=== PATIENT | female | born 1960 | race Caucasian/White ===

== ENCOUNTER 2018-04-03 11:57 | Inpatient (IN) | payer OTHER, MEDICAID ==
[2018-04-03 12:26] LABS: PLATELET COUNT 513 10^3/uL (150-400)
--- NOTE | 2018-04-03 13:11 | EDPHY ---
H & P Stated Complaint: Pt laying in ditch refused to get up, answered only "I don't know" Time Seen by Provider: 04/03/18 12:00 HPI/ROS: CHIEF COMPLAINT: Altered mental status Limitations: AMS, pt unable to provide any clinical history HISTORY OF PRESENT ILLNESS: 57-year-old female presents with altered mental status. She was apparently at [facility] ED this morning and was discharged to the [facility]. She left the [facility] this morning and walked to a ditch. She was found lying in the ditch, only saying "I do not know , I do not know". She is unable to provide any history initially. REVIEW OF SYSTEMS: Unable to obtain - Personal History Current Tetanus/Diphtheria Vaccine: Unsure - Medical/Surgical History Other PMH: Dementia, bipolar disorder - Social History Alcohol Use: Sober Drug Use: None - Physical Exam Exam: General Appearance: Alert, appears confused Eyes: Pupils equal and round, no conjunctival pallor or injection ENT, Mouth: Mucous membranes moist Neck: Normal inspection Respiratory: Lungs are clear to auscultation Cardiovascular: Regular rate and rhythm Gastrointestinal: Abdomen is soft and nontender Neurological: Alert, oriented to self only, motor 5/5, cranial nerves grossly intact Skin: Warm and dry Extremities: Normal inspection Psychiatric: Flat affect, no recent memory, remote memory limited; aware that she has a son who lives in [place] Constitutional: Initial Vital Signs Temperature (C) 36.5 C 04/03/18 12:00 Heart Rate 114 H 04/03/18 12:00 Respiratory Rate 18 04/03/18 12:00 Blood Pressure 126/89 H 04/03/18 12:00 O2 Sat (%) 96 04/03/18 12:00 O2 Delivery Mode Room Air Allergies/Adverse Reactions: ibuprofen Allergy (Verified 04/03/18 12:27) Home Medications: Medication Instructions Recorded Amitriptyline HCl [Amitriptyline 12.5 mg PO DAILY 04/03/18 HCl] Atorvastatin Calcium [Lipitor 10 10 mg PO DAILY 04/03/18 mg (*)] Baclofen [Baclofen 10 mg (*)] 10 mg PO BID 04/03/18 Duloxetine HCl [Duloxetine HCl] 120 mg PO DAILY 04/03/18 Pantoprazole Sodium [Protonix 40mg 40 mg PO BID 04/03/18 (*)] Sucralfate [Sucralfate] 1 gm PO ACHS 04/03/18 metFORMIN HCL [Metformin HCl] 500 mg PO BIDMEAL 04/03/18 Medical Decision Making - Diagnostics EKG Interpretation: EKG interpreted by me reveals sinus tachycardia, rate 108, Pac, no ST or T segment changes. Interpretation: Otherwise normal EKG. Imaging Results: Head CT 04/03/18 12:07 Impression: 1. No subdural hematoma, mass, or acute process. 2. Moderate atrophy. Findings discussed with emergency department physician, Virginia Wilson MD on April 03, 2018 at 12:55 p.m. Chest X-Ray 04/03/18 12:26 Impression: 1. Mild airways disease. No pneumonia or evidence of aspiration. 2. Right basilar focal opacity may represent pulmonary nodule, subacute anterior right 4th rib fracture, or infectious or inflammatory pulmonary process. Recommend follow-up chest radiograph in 4-6 weeks to ensure resolution. Findings discussed with emergency department physician, Virginia Wilson MD on April 03, 2018 at 1:08 p.m. Imaging: Discussed imaging studies w/ calliope player Radiologist ED Course/Re-evaluation: This patient presents with altered mental status. Her neurologic exam is nonfocal and the etiology of her symptoms is unclear. She has a folder of her medical records with her and she was recently seen in the [facility] emergency department and at [facility] ED. The diagnosis at [facility] ED was "person feigning illness". h/o vascular dementia, presentation could be secondary to advanced dementia. Does not appear to have an acute psych problem or acute illness. 1:00 p.m.-patient is more talkative now. She knows her name and where she is. She has a son who lives nearby. She does not recall the events of the morning, but tells me that she has not recently been ill or injured. She is only able to tell me that she does not feel well. The senior safety support manager became involved with this patient. Please see her note. Multiple attempts to reach pt's son unsuccessful. There is no evidence of an acute medical or psychiatric problem during my initial evaluation. She certainly has dementia which may be the primary reason she does not have recollection of recent events. She is certainly not able to leave the emergency department in this condition. She will need to be admitted for safe disposition. The hospitalist service was consulted for admission. Differential Diagnosis: Altered mental status including but not limited to hypoglycemia, infectious process, electrolyte abnormality, head injury, CVA, and intoxicants. - Data Points Laboratory Results: Laboratory Results 04/03/18 12:16 04/03/18 12:16 Medications Given: Baclofen (Baclofen) 5 mg PO BID [facility] Stop: 10/01/18 11:14 Last Admin: 04/04/18 12:04 Dose: 5 mg Enoxaparin Sodium (Lovenox) 40 mg SC DAILY [facility] Stop: 10/01/18 08:59 Last Admin: 04/04/18 08:45 Dose: 40 mg Insulin Human Lispro (Humalog Lispro) 0 unit SC TIDMEAL [facility] PRN Reason: Protocol Stop: 09/30/18 17:59 Last Admin: 04/04/18 18:29 Dose: Not Given Sucralfate (Carafate) 1 gm PO ACHS [facility] Stop: 10/01/18 11:29 Last Admin: 04/04/18 17:51 Dose: 1 gm Discontinued Medications Sodium Chloride (Ns) 1,000 mls @ 150 mls/hr IV CONT [facility] Stop: 04/03/18 22:54 Last Admin: 04/03/18 17:52 Dose: 1,000 mls Influenza Virus Vaccine Quadrival (Flulaval Quad [id number] (6mo+)) 0.5 ml IM .ONCE ONE Stop: 04/04/18 11:26 Last Admin: 04/04/18 12:09 Dose: 0.5 ml Departure - Departure Disposition: [facility] Inpatient Acute Clinical Impression: Failure to thrive in adult Dementia Qualifiers: Dementia type: vascular dementia Dementia behavioral disturbance: with behavioral disturbance Qualified Code(s): F01.51 - Vascular dementia with behavioral disturbance Condition: Fair
--- NOTE | 2018-04-03 14:36 | CPEKG ---
Test Reason : OPEN Blood Pressure : / mmHG Vent. Rate : 108 BPM Atrial Rate : 109 BPM P-R Int : 144 ms QRS Dur : 081 ms QT Int : 327 ms P-R-T Axes : 058 048 070 degrees QTc Int : 439 ms Sinus tachycardia Confirmed by Virginia Wilson ([id number]) on 04/03/2018 2:36:03 PM Referred By: Confirmed By:Virginia Wilson
[2018-04-03] MEDS ORDERED: IOPAMIDOL (ISOVUE 370) 100 ML BTL IV ONE (15:52)
[2018-04-03] MEDS ORDERED: ONDANSETRON 4 MG/2 ML VIAL IVP PRN (16:01)
[2018-04-03] MEDS ORDERED: ACETAMINOPHEN 325 MG TAB PO PRN (16:01)
[2018-04-03] MEDS ORDERED: ONDANSETRON DISINTEGRATING 4 MG TAB PO PRN (16:01)
[2018-04-03] MEDS ORDERED: NS 1,000 ML IV SCH (16:15)
[2018-04-03] MEDS ORDERED: D50W 25 GM/50 ML SYR IVP PRN (16:40)
--- NOTE | 2018-04-03 17:38 | ASMTLACE ---
AMINAH Acuity / Level of Answers: Yes Care: Did the patient have an inpatient admission? Comorbidities - select Answers: Dementia all that apply Opioid dependence / Chronic pain # of Emergency department Answers: 1-2 visits in the last 6 months Social determinants Answers: Homelessness (street, custodial) Mental health diagnosis (anxiety, depression, pers onality disorders, etc.) Score: 17 Date Signed: 04/03/2018 05:37 PM Electronically Signed By:Julianna Morales
--- NOTE | 2018-04-03 18:00 | HOSPPROG ---
Hospitalist Progress Note Assessment/Plan: please read CM note from ER as it contains a lot of info re: her recent story 1. she has a h/o of narcotic and benzo abuse/overuse 2. CT scan today w no PE but potential lung CA and axillary LAD c/f malignancy. no further workup ordered at this point. will likely need a guardian. one of her sons is no longer participating in her care Objective: Vital Signs Temp Pulse Resp BP Pulse Ox 37.1 C 98 14 113/75 99 04/03/18 16:18 04/03/18 16:18 04/03/18 16:18 04/03/18 16:18 04/03/18 16:18 ICD10 Worksheet Patient Problems: Problems Problem Status Onset Dementia Acute Failure to thrive in adult Acute
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
[2018-04-03] MEDS: INSULIN LISPRO 100 UNIT/ML SC SCH (19:13)
[2018-04-04 06:02] LABS: PLATELET COUNT 434 10^3/uL (150-400)
[2018-04-04] MEDS: ENOXAPARIN 40 MG/0.4 ML SYR SC SCH (08:45)
--- NOTE | 2018-04-04 09:49 | PDMN ---
Medical Necessity Medical necessity: [facility] [id number] Mental status change and [id number] Other psychiatric d/o adult IP care: 57 yo w/ altered mental status found down [place] ditch [place] [facility], pt is tachycardic HR 110s, questionable PE vs. rib fx so CT ordered - neg for PE but potential lung CA and axillary LAD c/f malignancy. Pt is gravely disabled and will likely need gaurdian. Hx bipolar, DM, reflux, generalized anxiety d/o, sleep apnea, COPD, chronic pain, Ollier's disease, vascular dementia, narcotic and benzo abuse/overuse, and hyperlipidemia.
[2018-04-04] MEDS: INSULIN LISPRO 100 UNIT/ML SC SCH ×3 (10:57→18:29)
--- NOTE | 2018-04-04 11:07 | HOSPPROG ---
Hospitalist Progress Note Assessment/Plan: # social - See CM note from Madiha for more details. Patient is AOx3 but has no recollection of recent events. Has a reported history of vascular dementia. Her son does not appear to be involved at this time. CM is working on proxy vs guardian and gathering collateral. If she tries to leave, she should be placed on a medical incapacity hold. # encephalopathy - Unsure of the acuity, she has underlying reported vascular dementia - will decrease but not stop baclofen given potential for withdrawal - working on getting collateral - CTH with atrophy # possible lung cancer with spiculated nodule and LAD - defer w/u at this time pending evaluation of the above # chronic pain - not currently on narcotics per her med rec, but reported history of narcotic use # DM2 - hold metformin for now # HLD - lipitor # htn - not on meds, BP ok # GERD - protonix # COPD - on RA, no exacerbation # h/o nephrectomy # bipolar/anxiety/depression - cymbalta, elavil are on her med list # vascular dementia Subjective: patient is AOx3, but has no recollection of recent events Objective: Vital Signs Temp Pulse Resp BP Pulse Ox 37.0 C 87 16 105/74 96 04/04/18 07:48 04/04/18 07:48 04/04/18 07:48 04/04/18 07:48 04/04/18 07:48 Laboratory Results 04/04/18 04:50 04/04/18 04:50 04/03/18 04/04/18 04/05/18 05:59 05:59 05:59 Intake Total 1904 Balance 190 chart reviewed CTH reviewed CTA reviewed - Physical Exam Constitutional: no apparent distress, other (lying in bed) Cardiovascular: regular rate and rhythym, no murmur, rub, or gallop Respiratory: no respiratory distress, no rales or rhonchi, clear to auscultation Gastrointestinal: soft, non-tender abdomen, no palpable masses, No guarding, No rebound, No distension Neurologic: other (AOx3, no memory of recent events) ICD10 Worksheet Patient Problems: Problems Problem Status Onset Dementia Acute Failure to thrive in adult Acute
[2018-04-04] MEDS: BACLOFEN 10 MG TAB PO SCH ×2 (12:04→20:20)
[2018-04-04] MEDS: SUCRALFATE 1 GM TAB PO SCH ×3 (12:05→20:20)
--- NOTE | 2018-04-04 16:10 | ASMTCMCOM ---
CM Note CM Note Notes: Spoke with patient about the need for a proxy for her. Patient gave me her son's name, Remy and the same number she gave CM, Madiha Kris. His number has been disconnected. Patient states she has a daughter, Tierra Ziegler who lives in [place]. She states her number is [phone]. CM left a message for Tierra to call us back. Returned patient's folder of information that Madiha Keithabimael used to try and put a timeline of events together. Left a message for the director social at [facility] to call us back. We are hoping to get more hx and clarity from [facility] where patient lived for a short period of time. CM will follow. Date Signed: 04/04/2018 04:09 PM Electronically Signed By:Angie Patel LCSW
[2018-04-04] MEDS: PANTOPRAZOLE SODIUM 40 MG TAB PO SCH (20:20)
[2018-04-05 05:51] LABS: PLATELET COUNT 434 10^3/uL (150-400)
[2018-04-05] MEDS: SUCRALFATE 1 GM TAB PO SCH ×4 (07:31→20:00)
[2018-04-05] MEDS: INSULIN LISPRO 100 UNIT/ML SC SCH ×2 (07:36→11:19)
[2018-04-05] MEDS: ATORVASTATIN CALCIUM 10 MG TAB PO SCH (09:39)
[2018-04-05] MEDS: AMITRIPTYLINE HCL 25 MG TAB PO SCH (09:39)
[2018-04-05] MEDS: DULoxetine 60 MG CAP PO SCH (09:39)
[2018-04-05] MEDS: BACLOFEN 10 MG TAB PO SCH ×2 (09:40→20:00)
[2018-04-05] MEDS: PANTOPRAZOLE SODIUM 40 MG TAB PO SCH ×2 (09:40→20:00)
[2018-04-05] MEDS: ENOXAPARIN 40 MG/0.4 ML SYR SC SCH (09:40)
--- NOTE | 2018-04-05 14:46 | HOSPPROG ---
Hospitalist Progress Note Assessment/Plan: 57y F with bipolar d/o brought in after being found down in a ditch. # social - See CM note from Madiha for more details. Patient is AOx3 but has no recollection of recent events. Has a reported history of vascular dementia. Her son does not appear to be involved at this time. CM is working on proxy vs guardian and gathering collateral. If she tries to leave, she should be placed on a medical incapacity hold. # Amnesia/encephalopathy: Unsure of the acuity, she has underlying reported vascular dementia - will decrease but not stop baclofen given potential for withdrawal - working on getting collateral - CTH with atrophy - consider paraneoplastic etiology with below # possible lung cancer with spiculated nodule and LAD - defer w/u at this time pending evaluation of the above # chronic pain - not currently on narcotics per her med rec, but reported history of narcotic use # DM2 - hold metformin with recent contrast # HLD - lipitor # htn - not on meds, BP ok # GERD - protonix # COPD - on RA, no exacerbation # h/o nephrectomy # bipolar/anxiety/depression - cymbalta, elavil are on her med list # vascular dementia Dispo: Remain inpatient, unsafe to discharge. Unclear anticipated date of discharge. Subjective: Reports mild diffuse pain. She is oriented but denies recollection of any recent events or really any events in her past after high school. Objective: Vital Signs Temp Pulse Resp BP Pulse Ox 36.6 C 106 H 16 127/82 H 94 04/05/18 12:00 04/05/18 12:00 04/05/18 12:00 04/05/18 12:00 04/05/18 12:00 Laboratory Results 04/05/18 04:38 04/05/18 04:38 04/04/18 04/05/18 04/06/18 05:59 05:59 05:59 Intake Total 1904 650 Balance 1904 650 - Physical Exam Constitutional: no apparent distress, appears nourished, not in pain Eyes: PERRL, anicteric sclera, EOMI Ears, Nose, Mouth, Throat: moist mucous membranes, hearing normal, ears appear normal, no oral mucosal ulcers Cardiovascular: regular rate and rhythym, no murmur, rub, or gallop Respiratory: no respiratory distress, no rales or rhonchi, clear to auscultation Gastrointestinal: normoactive bowel sounds, soft, non-tender abdomen, no palpable masses Genitourinary: no bladder fullness, no bladder tenderness, no renal bruits Skin: no rashes or abrasions, no fluctuance, no induration Musculoskeletal: full muscle strength, no muscle tenderness, normal joint ROM Neurologic: AAOx3, sensation intact bilaterally Psychiatric: interacting appropriately, other (able to spell WORLD backwards, count back by serial 7s, knows president) ICD10 Worksheet Patient Problems: Problems Problem Status Onset Dementia Acute Failure to thrive in adult Acute
--- NOTE | 2018-04-05 16:48 | ASMTCMCOM ---
CM Note CM Note Notes: Spoke with Dr. Huerta regarding patient and he agrees she goes in and out of decisionality. He is ordering a consult with Romana Tran to get more insight into the patient's mental health problems. I did not hear back from the patient's daughter today. Left another message requesting she get in contact with us. Discharge plan remains TBD at this time.The case has been forwarded to Susan Mendoza and Jessica Zuniga for their review and suggestions.CM will follow. Date Signed: 04/05/2018 04:47 PM Electronically Signed By:Angie Patel LCSW
[2018-04-06] MEDS: DULoxetine 60 MG CAP PO SCH (09:25)
[2018-04-06] MEDS: PANTOPRAZOLE SODIUM 40 MG TAB PO SCH ×2 (09:25→20:11)
[2018-04-06] MEDS: BACLOFEN 10 MG TAB PO SCH ×2 (09:25→20:11)
[2018-04-06] MEDS: AMITRIPTYLINE HCL 25 MG TAB PO SCH (09:25)
[2018-04-06] MEDS: SUCRALFATE 1 GM TAB PO SCH ×4 (09:25→20:11)
[2018-04-06] MEDS: ATORVASTATIN CALCIUM 10 MG TAB PO SCH (09:25)
[2018-04-06] MEDS: ENOXAPARIN 40 MG/0.4 ML SYR SC SCH (09:26)
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
[2018-04-06] MEDS: metFORMIN HCL 500 MG TAB PO SCH (17:48)
[2018-04-06 18:47] LABS: HIV TYPE 1 AND 2 NEGATIVE (NEGATIVE)
[2018-04-07] MEDS: metFORMIN HCL 500 MG TAB PO SCH ×2 (07:35→17:38)
[2018-04-07] MEDS: SUCRALFATE 1 GM TAB PO SCH ×4 (07:36→20:00)
[2018-04-07] MEDS: AMITRIPTYLINE HCL 25 MG TAB PO SCH (08:55)
[2018-04-07] MEDS: DULoxetine 60 MG CAP PO SCH (08:56)
[2018-04-07] MEDS: ATORVASTATIN CALCIUM 10 MG TAB PO SCH (08:56)
[2018-04-07] MEDS: PANTOPRAZOLE SODIUM 40 MG TAB PO SCH ×2 (08:57→20:00)
[2018-04-07] MEDS: BACLOFEN 10 MG TAB PO SCH ×2 (08:57→20:00)
[2018-04-07] MEDS: ENOXAPARIN 40 MG/0.4 ML SYR SC SCH (08:57)
--- NOTE | 2018-04-07 09:22 | HOSPPROG ---
Hospitalist Progress Note Assessment/Plan: DIAGNOSES: # Amnesia/encephalopathy: Unsure of the acuity but suspect this is a chronic baseline for her, she has underlying reported vascular dementia - at this point difficult to determine whether this is really a neurologic/ dementia issue or a psychiatric issue with pseudo dementia - does carry both a psychiatric diagnosis and takes medicines for presumed bipolar disease, and has reported history of dementia but we have no previous records or knowledge of what assessment or evaluations she has had -I do not think this is paraneoplastic as suggested earlier during this hospital stay as she does not have any focal neurologic changes consistent with that and in the # microcytic anemia raising concern for possible GI malignancy versus other cause of blood loss which could include other causes of bleeding or malabsorption such as celiac disease especially given her psychiatric issues # possible lung cancer with spiculated nodule and LAD - defer w/u at this time pending evaluation of the above # chronic pain - not currently on narcotics per her med rec, but reported history of narcotic abuse # DM2 - hold metformin with recent contrast; given her fasting sugars here not sure that metformin is necessary for her but we have not checked postprandial sugars # HLD - lipitor # htn - not on meds, BP ok # GERD - has been on Protonix, get but given her overall list of issues would be preferable to attempt use of H2 ivy at present # COPD - on RA, no exacerbation; continue some low-level tobacco use # h/o nephrectomy # bipolar/anxiety/depression - cymbalta, elavil are on her med list; question why she is not on a mood stabilizer PLANS: - continue lowered dose of baclofen and eventually stop that; avoid any other medicines with PIERCE AND SHAVE PRESS OPERATOR side effects - agree she is not safe to be in an unsupervised setting at this point - working on getting guardianship, collateral - in terms of any workup for malignancy, I believe that most likely 1st investigating for any GI pathology would be the best starting point, and given her age this would be very reasonable; however I am not sure that she can give true informed consent - will try and discuss with her further to see if she is able to understand the concept of such an illness and evaluation and if she is able to express consistent wishes for medical care - in terms of assessing her presenting neurologic/psychiatric issues, it would be ideal to get past history, and would be useful to consider formal neuropsychiatric testing. If her issues are primarily psychiatric, more aggressive or appropriate psychiatric care could be helpful - will not resume metformin at present, but will check some postprandial sugars to see whether this medicine is truly indicated Dispo: Remain inpatient, unsafe to discharge. Unclear anticipated date of discharge. Ongoing case management efforts SUBJECTIVE: States she feels well. No specific discomfort or other complaints Can not recall why she is here, has no questions about her condition or why she is here OBJECTIVE Vitals reviewed: Merchandise Displayer, my review: Exam: alert oriented to her name and place. States she has had no recollection about [address] [place] up in the hospital, or what she has been told about why she is here or what our concerns are for her in terms of medical diagnoses or complications. Her affect is flat and very depressed. She does not make eye contact during our conversation, does not move from her position of lying on her side. She has eaten part of her breakfast this morning including a full bottle of Ensure. skin warm dry color ok resps not labored lungs clear BSs heart regular abd soft nondistended nontender, bowel sounds present limbs warm, no edema iv site ok Laboratory data: I reviewed all of her laboratory data from this hospital admission, there are no old available data for comparison. Anemia, microcytic, is present with elevated RDW and low MCHC, normal to high red cell count, consistent with iron deficiency, though that has not been specifically tested yet. HIV negative Syphilis serology still pending Imaging: I reviewed her head CT scan which does show atrophy but nothing else acute or concerning I reviewed her chest CT scan images. She does indeed have bilateral axillary adenopathy and a very small left lower lobe peripheral lung nodule. The adenopathy could be suggestive of malignancy but the lung nodule is small enough that I doubt it would be responsible for the bilateral adenopathy in the axillae. Since it is bilateral up breast pathology but would be less likely. Her iron deficiency could potentially suggest a GI malignancy. Objective: Vital Signs Temp Pulse Resp BP Pulse Ox 36.8 C 92 14 116/72 94 04/07/18 07:19 04/07/18 07:19 04/07/18 07:19 04/07/18 07:19 04/07/18 07:19 Laboratory Results 04/05/18 04:38 04/05/18 04:38 11/07/18 11/08/18 11/09/18 06:59 06:59 06:59 Intake Total 1500 Balance 1500 - Time Spent With Patient Time Spent with Patient: greater than 35 minutes Time Spent with Patient: Greater than 35 minutes spent on this patients care, greater than 50% of time spent counseling, educating, and coordinating care regarding the above mentioned plan. ICD10 Worksheet Patient Problems: Problems Problem Status Onset Dementia Acute Failure to thrive in adult Acute
--- NOTE | 2018-04-07 11:52 | ASMTCMCOM ---
CM Note CM Note Notes: Hospitalist evaluating pt's ability to make decision that would allow for a work-up for maligniancy . He is considering formal neuropsychiatric testing. Proxy and/or guardianship is being explored by CM. CM to [facility]. D/C Plan: TBD Date Signed: 04/07/2018 11:51 AM Electronically Signed By:Parisa Lockhart
[2018-04-08] MEDS: DULoxetine 60 MG CAP PO SCH (08:16)
[2018-04-08] MEDS: ATORVASTATIN CALCIUM 10 MG TAB PO SCH (08:17)
[2018-04-08] MEDS: SUCRALFATE 1 GM TAB PO SCH ×4 (08:17→23:09)
[2018-04-08] MEDS: AMITRIPTYLINE HCL 25 MG TAB PO SCH (08:17)
[2018-04-08] MEDS: metFORMIN HCL 500 MG TAB PO SCH ×2 (08:18→17:42)
[2018-04-08] MEDS: BACLOFEN 10 MG TAB PO SCH (08:18)
[2018-04-08] MEDS: PANTOPRAZOLE SODIUM 40 MG TAB PO SCH ×2 (08:19→23:09)
[2018-04-08] MEDS: ENOXAPARIN 40 MG/0.4 ML SYR SC SCH (08:20)
[2018-04-08] MEDS ORDERED: SODIUM FERRIC GLUCONAT/SUCROSE 125 MG in NS 100 ML IV SCH (10:00)
--- NOTE | 2018-04-08 10:01 | HOSPPROG ---
Hospitalist Progress Note Assessment/Plan: DIAGNOSES: # "Amnesia/encephalopathy": * Long history of multiple psychiatric issues and also reported history of vascular dementia. At this point the patient is denying emphatically any history of any medical or psychiatric problems, any medical contact in the last 30+ years, or any use of any medications. I believe she is actually fabricating this information will fully, and feel that she is less likely to have such as severe dementia that she has no recollection of any of this. In particular, it does not seem plausible that she would be able to engage in conversations as easily as she does now, be oriented to the name of this hospital, tell me about her family members and have absolutely no recollection of all other recent or remote past events. However this turning what is true memory loss and what is fiber K did information is difficult in her case. Reviewing the social in medical issues of the past several months, she clearly is unable to manage her medical or other life affairs safely or effectively. # microcytic anemia with iron deficiency raising concern for possible GI malignancy versus other cause of blood loss which could include other causes of bleeding or malabsorption such as celiac disease especially given her psychiatric issues # possible lung cancer with spiculated nodule and LAD * defer w/u at this time pending evaluation of the above but repeat CT scan of the chest for stability in 2-3 months would be indicated at a minimum # chronic pain - not currently on narcotics per her med rec, but reported history of narcotic abuse # DM2 - * She is refusing fingerstick monitoring here * Her fasting sugars are normal off metformin, and she may not need metformin, will ask lab to do hemoglobin A1c # HLD - lipitor # htn - not on meds, BP ok # GERD - has been on Protonix, get but given her overall list of issues would be preferable to attempt use of H2 ivy at present # COPD - on RA, no exacerbation; continue some low-level tobacco use # h/o nephrectomy # bipolar/anxiety/depression - cymbalta, elavil are on her med list; question why she is not on a mood stabilizer PLANS: * continue lowered dose of baclofen and eventually stop that; avoid any other medicines with MATERIALS ANALYST side effects * agree she is not safe to be in an unsupervised setting at this point * working on getting guardianship, collateral * begin iron replacement therapy at this time, IV transition to oral * I did review her iron deficiency with her and reviewed GI workup, and she sounds willing to engage in this, however I am not certain whether she could give true informed consent or not at present * in terms of assessing her presenting neurologic/psychiatric issues, neuropsych testing may be helpful but may have been done in the past. I think at the present time it may be useful to confront her with the records that we have obtained and see if she responds differently or gives us different answers to questions about her past medical and current medical issues * Have lab test hemoglobin A1c and determine whether metformin seems necessary Dispo: Remain inpatient, unsafe to discharge. Unclear anticipated date of discharge. Ongoing case management efforts SUBJECTIVE: States she feels well At this point when I talked to her about her medications, she denies ever having had any psychiatric or medical diagnoses or be having ever been prescribed any medications When I talked to her about her iron deficiency she says she is no longer having menstrual periods which stopped many years ago. She denies did specific abdominal or GI symptoms. She seems to comprehend what I am saying about iron deficiency and endoscopic evaluation well and says she is interested in endoscopic assessment for possible causes of deficiency Per nurses the patient has been adamantly refusing any fingerstick assessments for blood sugar OBJECTIVE Vitals reviewed: Stable Technology Sales Representative, my review: Exam: alert oriented to her name and place. Relaxed lying in bed. Makes better eye contact today. No tremor. Answers questions quickly and consistently, though her answers are not necessarily the same as what she is given during other conversations during this hospital stay. skin warm dry color ok resps not labored lungs clear BSs heart regular abd soft nondistended nontender, bowel sounds present limbs warm, no edema iv site ok Laboratory data: I reviewed all of her laboratory data from this hospital admission, there are no old available data for comparison. Anemia, microcytic, is present with elevated RDW and low MCHC, normal to high red cell count, consistent with iron deficiency, though that has not been specifically tested yet. HIV negative Syphilis serology still pending Imaging: I reviewed her head CT scan which does show atrophy but nothing else acute or concerning I reviewed her chest CT scan images. She does indeed have bilateral axillary adenopathy and a very small left lower lobe peripheral lung nodule. The adenopathy could be suggestive of malignancy but the lung nodule is small enough that I doubt it would be responsible for the bilateral adenopathy in the axillae. Since it is bilateral up breast pathology but would be less likely. Her iron deficiency could potentially suggest a GI malignancy. Objective: Vital Signs Temp Pulse Resp BP Pulse Ox 36.8 C 95 16 107/72 93 04/08/18 08:00 04/08/18 08:00 04/08/18 08:00 04/08/18 08:00 04/08/18 08:00 Laboratory Results 04/05/18 04:38 04/05/18 04:38 - Time Spent With Patient Time Spent with Patient: greater than 35 minutes Time Spent with Patient: Greater than 35 minutes spent on this patients care, greater than 50% of time spent counseling, educating, and coordinating care regarding the above mentioned plan. ICD10 Worksheet Patient Problems: Problems Problem Status Onset Dementia Acute Failure to thrive in adult Acute
[2018-04-08] MEDS: FERROUS SULFATE 325 MG TAB PO SCH (10:33)
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
--- NOTE | 2018-04-09 07:28 | ASMTCMCOM ---
CM Note CM Note Notes: DIscussed this case with Director, Susan Mendoza. Patient does need a decision maker - Ethics involved and will assist us further on Wednesday with Medical Proxy. Perhaps we should also consult Psychiatry for support with medications and decisional capacity if that is still in question. We will attempt to place this patient and start seeking emergency guardianship if we feel is warranted. THis will be a complex and difficult patient as she has Medicaid and other mental health/substance abuse issues. Plan: TBD Date Signed: 04/09/2018 07:28 AM Electronically Signed By:Jessica Zuniga RN
[2018-04-09] MEDS: AMITRIPTYLINE HCL 25 MG TAB PO SCH (08:04)
[2018-04-09] MEDS: metFORMIN HCL 500 MG TAB PO SCH ×2 (08:04→17:29)
[2018-04-09] MEDS: SUCRALFATE 1 GM TAB PO SCH ×4 (08:05→21:18)
[2018-04-09] MEDS: PANTOPRAZOLE SODIUM 40 MG TAB PO SCH ×2 (08:05→21:18)
[2018-04-09] MEDS: ATORVASTATIN CALCIUM 10 MG TAB PO SCH (08:05)
[2018-04-09] MEDS: DULoxetine 60 MG CAP PO SCH (08:05)
[2018-04-09] MEDS: FERROUS SULFATE 325 MG TAB PO SCH (08:05)
[2018-04-09] MEDS: ENOXAPARIN 40 MG/0.4 ML SYR SC SCH (08:05)
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
[2018-04-10] MEDS: metFORMIN HCL 500 MG TAB PO SCH ×2 (07:49→17:00)
[2018-04-10] MEDS: SUCRALFATE 1 GM TAB PO SCH ×4 (07:49→20:32)
[2018-04-10] MEDS: DULoxetine 60 MG CAP PO SCH (07:51)
[2018-04-10] MEDS: AMITRIPTYLINE HCL 25 MG TAB PO SCH (07:52)
[2018-04-10] MEDS: ATORVASTATIN CALCIUM 10 MG TAB PO SCH (07:53)
[2018-04-10] MEDS: FERROUS SULFATE 325 MG TAB PO SCH (07:53)
[2018-04-10] MEDS: ENOXAPARIN 40 MG/0.4 ML SYR SC SCH (07:53)
[2018-04-10] MEDS: PANTOPRAZOLE SODIUM 40 MG TAB PO SCH ×2 (07:53→20:32)
--- NOTE | 2018-04-10 10:56 | HOSPPROG ---
Hospitalist Progress Note Assessment/Plan: 57 yo F admited w encephalopathy, failure of independent living "Amnesia/encephalopathy": * Long history of multiple psychiatric issues and also reported history of vascular dementia. Reviewing the social in medical issues of the past several months, she clearly is unable to manage her medical or other life affairs safely or effectively. microcytic anemia with iron deficiency raising concern for possible GI malignancy versus other cause of blood loss. defer scope until proxy decision maker can be found possible lung cancer with spiculated nodule and LAD * defer w/u at this time pending evaluation of the above but repeat CT scan of the chest for stability in 2-3 months would be indicated at a minimum chronic pain - not currently on narcotics per her med rec, but with known history of narcotic abuse\\ DM2 - * She is refusing fingerstick monitoring here * Her fasting sugars are normal off metformin, and she may not need metformin, will ask lab to do hemoglobin A1c HLD - lipitor htn - not on meds, BP ok GERD - has been on Protonix, get but given her overall list of issues would be preferable to attempt use of H2 ivy at present COPD - on RA, no exacerbation; continue some low-level tobacco use h/o nephrectomy bipolar/anxiety/depression - cymbalta, elavil are on her med list; question why she is not on a mood stabilizer proph: enox Subjective: no complaints. alert Objective: Vital Signs Temp Pulse Resp BP Pulse Ox 36.7 C 97 16 103/67 93 04/10/18 08:00 04/10/18 08:00 04/10/18 08:00 04/10/18 08:00 04/10/18 08:00 Laboratory Results 04/05/18 04:38 04/05/18 04:38 04/09/18 04/10/18 04/11/18 05:59 05:59 05:59 Intake Total 1000 Balance 1000 - Physical Exam Constitutional: no apparent distress, appears nourished Eyes: PERRL, anicteric sclera Ears, Nose, Mouth, Throat: moist mucous membranes, hearing normal Cardiovascular: regular rate and rhythym, no murmur, rub, or gallop Respiratory: no respiratory distress, clear to auscultation Gastrointestinal: normoactive bowel sounds, no palpable masses Genitourinary: no bladder fullness, No montelongo in urethra Skin: warm, normal color Musculoskeletal: full muscle strength Neurologic: sensation intact bilaterally ICD10 Worksheet Patient Problems: Problems Problem Status Onset Dementia Acute Failure to thrive in adult Acute
[2018-04-11] MEDS: POLYETHYLENE GLYCOL 3350 17 GM PKT PO SCH (07:43)
[2018-04-11] MEDS: ENOXAPARIN 40 MG/0.4 ML SYR SC SCH (07:44)
[2018-04-11] MEDS: SUCRALFATE 1 GM TAB PO SCH ×4 (07:44→20:12)
[2018-04-11] MEDS: AMITRIPTYLINE HCL 25 MG TAB PO SCH (07:44)
[2018-04-11] MEDS: FERROUS SULFATE 325 MG TAB PO SCH (07:44)
[2018-04-11] MEDS: PANTOPRAZOLE SODIUM 40 MG TAB PO SCH ×2 (07:45→20:12)
[2018-04-11] MEDS: DULoxetine 60 MG CAP PO SCH (07:45)
[2018-04-11] MEDS: metFORMIN HCL 500 MG TAB PO SCH ×2 (07:45→17:01)
[2018-04-11] MEDS: ATORVASTATIN CALCIUM 10 MG TAB PO SCH (07:45)
--- NOTE | 2018-04-11 11:52 | ASMTCMCOM ---
CM Note CM Note Notes: CM spoke to Vero w/ [facility]. Vero spoke to Dr. Bills. Dr. Bills reports that pt does not have any immediate medical interventions that require a medical proxy. Dr. Bills is recommending/requesting for a guardian. CM communicated this w/ Jessica. Jessica has touched base w/ Susan. CM to follow. Plan: TBD Date Signed: 04/11/2018 11:51 AM Electronically Signed By:SILVIO Del Real
--- NOTE | 2018-04-11 14:37 | HOSPPROG ---
Hospitalist Progress Note Assessment/Plan: 57 yo F admited w encephalopathy, failure of independent living "Amnesia/encephalopathy": * Long history of multiple psychiatric issues and also reported history of vascular dementia. Reviewing the social in medical issues of the past several months, she clearly is unable to manage her medical or other life affairs safely or effectively. microcytic anemia with iron deficiency raising concern for possible GI malignancy versus other cause of blood loss. defer scope until proxy decision maker can be found possible lung cancer with spiculated nodule and LAD * defer w/u at this time pending evaluation of the above but repeat CT scan of the chest for stability in 2-3 months would be indicated at a minimum chronic pain - not currently on narcotics per her med rec, but with known history of narcotic abuse\\ DM2 - * She is refusing fingerstick monitoring here * Her fasting sugars are normal off metformin, and she may not need metformin, will ask lab to do hemoglobin A1c HLD - lipitor htn - not on meds, BP ok GERD - has been on Protonix, get but given her overall list of issues would be preferable to attempt use of H2 ivy at present COPD - on RA, no exacerbation; continue some low-level tobacco use h/o nephrectomy dispo: she needs a court appointed guardian proph: enox Subjective: resting comfortably. no complaints, no questions Objective: Vital Signs Temp Pulse Resp BP Pulse Ox 36.8 C 89 16 110/74 92 04/11/18 07:23 04/11/18 07:23 04/11/18 07:23 04/11/18 07:23 04/11/18 07:23 Laboratory Results 04/05/18 04:38 04/05/18 04:38 04/10/18 04/11/18 04/12/18 05:59 05:59 05:59 Intake Total 1000 2000 Output Total 1500 Balance 1000 500 - Physical Exam Constitutional: no apparent distress, appears nourished Eyes: PERRL, anicteric sclera Ears, Nose, Mouth, Throat: moist mucous membranes, hearing normal Cardiovascular: regular rate and rhythym, no murmur, rub, or gallop Respiratory: no respiratory distress, no rales or rhonchi Gastrointestinal: normoactive bowel sounds, soft, non-tender abdomen Genitourinary: no bladder fullness, No montelongo in urethra Skin: warm, normal color Musculoskeletal: full muscle strength ICD10 Worksheet Patient Problems: Problems Problem Status Onset Dementia Acute Failure to thrive in adult Acute
[2018-04-12] MEDS: metFORMIN HCL 500 MG TAB PO SCH ×2 (08:32→17:31)
[2018-04-12] MEDS: SUCRALFATE 1 GM TAB PO SCH ×4 (08:32→20:30)
[2018-04-12] MEDS: AMITRIPTYLINE HCL 25 MG TAB PO SCH (08:32)
[2018-04-12] MEDS: PANTOPRAZOLE SODIUM 40 MG TAB PO SCH ×2 (08:33→20:30)
[2018-04-12] MEDS: ATORVASTATIN CALCIUM 10 MG TAB PO SCH (08:33)
[2018-04-12] MEDS: DULoxetine 60 MG CAP PO SCH (08:33)
[2018-04-12] MEDS: FERROUS SULFATE 325 MG TAB PO SCH (08:33)
[2018-04-12] MEDS: ENOXAPARIN 40 MG/0.4 ML SYR SC SCH (08:33)
--- NOTE | 2018-04-12 10:43 | ASMTCMCOM ---
CM Note CM Note Notes: CM started [facility]TC-100. CM spoke to [facility]. They would like for ethics to assist w/ getting MD proxy. CM sent out numerous SNF referrals. CM will continue to pursue guardianship. CM to follow. Plan: TBD Date Signed: 04/12/2018 10:42 AM Electronically Signed By:SILVIO Del Real
[2018-04-12] MEDS: POLYETHYLENE GLYCOL 3350 17 GM PKT PO SCH (12:12)
--- NOTE | 2018-04-12 15:00 | ASMTCMCOM ---
CM Note CM Note Notes: Isauro from [facility] and Simona from [facility] came and assessed pt. Soraida from [facility] [place] came and assessed pt. Soraida reports that pt is appropriate for their facility. Reports that they currently have 2 female beds available. Awaiting MD proxy to be appointed to sign pt into SNF. Soraida reports that [facility] would still need to work on appointing guardianship. Awaiting from [facility] to come assess pt. CM to follow. Plan: [facility] Date Signed: 04/12/2018 02:59 PM Electronically Signed By:SILVIO Del Real
--- NOTE | 2018-04-12 16:17 | HOSPPROG ---
Hospitalist Progress Note Assessment/Plan: 57 yo F admited w encephalopathy, failure of independent living Plan of care: I spent some time talking w her today about malignancy workup. she has three potential spots of malignancy (lung nodule, axillary LAD, iron deficiency). the conversation was largely circular and she contradicted herself a few times. she doesnt belive in chemotherapy and doesnt think radiation works. she wasnt really able to provide a cogent reason as to why. (i dont believe in treating pain with pain) she did say she would consider surgery, but then ultimately stated she didnt see the point of an evaluation for malignancy. She wasnt really able to grasp the idea that a surgery for widespread cancer is not curative. at this point, I cannot recommend a malignancy workup but will continue to explore. it'll be interesting if she remebers this conversation to tomorrow she states she has a son in [place] and has imagined that he is looking for her. I called the [place] police department in this regard >40' spent at [facility] "Amnesia/encephalopathy": * Long history of multiple psychiatric issues and also reported history of vascular dementia. Reviewing the social in medical issues of the past several months, she clearly is unable to manage her medical or other life affairs safely or effectively. microcytic anemia with iron deficiency raising concern for possible GI malignancy versus other cause of blood loss. defer scope until proxy decision maker can be found possible lung cancer with spiculated nodule and LAD * defer w/u at this time pending evaluation of the above but repeat CT scan of the chest for stability in 2-3 months would be indicated at a minimum chronic pain - not currently on narcotics per her med rec, but with known history of narcotic abuse\\ DM2 - * She is refusing fingerstick monitoring here * Her fasting sugars are normal off metformin, and she may not need metformin, will ask lab to do hemoglobin A1c HLD - lipitor htn - not on meds, BP ok GERD - has been on Protonix, get but given her overall list of issues would be preferable to attempt use of H2 ivy at present COPD - on RA, no exacerbation; continue some low-level tobacco use h/o nephrectomy dispo: she needs a court appointed guardian proph: enox Subjective: case d/w MD proxy. discussed cancer workup with patient. she states she has a son (hans maravilla) in [facility] Objective: Vital Signs Temp Pulse Resp BP Pulse Ox 36.8 C 91 12 87/59 L 96 04/12/18 08:00 04/12/18 08:00 04/12/18 08:00 04/12/18 08:00 04/12/18 08:00 Laboratory Results 04/05/18 04:38 04/05/18 04:38 04/11/18 04/12/18 04/13/18 05:59 05:59 05:59 Intake Total 2000 300 Output Total 1500 Balance 500 300 - Physical Exam Constitutional: no apparent distress, appears nourished Eyes: PERRL, anicteric sclera Ears, Nose, Mouth, Throat: moist mucous membranes, hearing normal Cardiovascular: regular rate and rhythym, no murmur, rub, or gallop Respiratory: no respiratory distress, clear to auscultation Gastrointestinal: normoactive bowel sounds, soft, non-tender abdomen Genitourinary: no bladder fullness, No montelongo in urethra Musculoskeletal: full muscle strength, no muscle tenderness Neurologic: AAOx3 Psychiatric: interacting appropriately Lymph, Heme, Immunologic: other (no axillary LAD) ICD10 Worksheet Patient Problems: Problems Problem Status Onset Dementia Acute Failure to thrive in adult Acute
--- NOTE | 2018-04-13 12:21 | HOSPPROG ---
Hospitalist Progress Note Assessment/Plan: 57 yo F admited w encephalopathy, failure of independent living Plan of care: I followed up with her today. she recalled our conversation from yesterday w limited details when pressed, she agreed to, but couldnt tell me, the details. she maintaind her refusal of chemotherapy or radiation citing the same reasons (they dont work ) i asked her about biopsying the axillary lymph nodes- it is conceivable that they are from breast CA nad if ER+, she could benefit from estrogen receptor modulator. she was amenable to it, but struggled to explain the risks and benfits of doing so, she acknowledged it would get an answer, might cause pain. 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 when i asked her what street [facility] was on, she confabulated saying [facility] I discussed w dr chambers whether or not this represented consent. I am uncertain. there is likelihood of benefit (ie it is breast ca and er+) is pretty low. capacity or not, it is inappropriate to give chemotherapy or radiation to a patient who refuses it. we are attempting to find son. he has relinquished involvement but hopefully he will be helpfu;. i have called [place] police, where he lives "Amnesia/encephalopathy": * Long history of multiple psychiatric issues and also reported history of vascular dementia. Reviewing the social in medical issues of the past several months, she clearly is unable to manage her medical or other life affairs safely or effectively. microcytic anemia with iron deficiency raising concern for possible GI malignancy versus other cause of blood loss. defer scope until proxy decision maker can be found possible lung cancer with spiculated nodule and LAD * defer w/u at this time pending evaluation of the above but repeat CT scan of the chest for stability in 2-3 months would be indicated at a minimum chronic pain - not currently on narcotics per her med rec, but with known history of narcotic abuse\\ DM2 - * She is refusing fingerstick monitoring here * Her fasting sugars are normal off metformin, and she may not need metformin, will ask lab to do hemoglobin A1c HLD - lipitor htn - not on meds, BP ok GERD - has been on Protonix, get but given her overall list of issues would be preferable to attempt use of H2 ivy at present COPD - on RA, no exacerbation; continue some low-level tobacco use h/o nephrectomy dispo: she needs a court appointed guardian proph: enox Subjective: case d/w dr elam, ethics consult . 90' spent on case, > 50% at bedside Objective: Vital Signs Temp Pulse Resp BP Pulse Ox 37.3 C 96 16 88/57 L 94 04/13/18 08:00 04/13/18 08:00 04/13/18 08:00 04/13/18 08:00 04/13/18 08:00 Laboratory Results 04/05/18 04:38 04/05/18 04:38 04/12/18 04/13/18 04/14/18 05:59 05:59 05:59 Intake Total 300 880 Balance 300 880 - Physical Exam Constitutional: no apparent distress, appears nourished Eyes: PERRL, anicteric sclera Ears, Nose, Mouth, Throat: moist mucous membranes, hearing normal Cardiovascular: regular rate and rhythym, no murmur, rub, or gallop Respiratory: no respiratory distress, no rales or rhonchi Gastrointestinal: normoactive bowel sounds, soft, non-tender abdomen Genitourinary: No montelongo in urethra Skin: warm, normal color Musculoskeletal: full muscle strength, no muscle tenderness Neurologic: AAOx3 Psychiatric: interacting appropriately ICD10 Worksheet Patient Problems: Problems Problem Status Onset Dementia Acute Failure to thrive in adult Acute
--- NOTE | 2018-04-13 13:19 | ASMTCMCOM ---
CM Note CM Note Notes: Dr. Robinson Fatima has been identified to serve as MD proxy. Dr. Fatima is recommending that pt goes to a locked facility. Chey from [facility] came and assessed pt. Chey will need to speak w/ Dr. Fatima. Additional SNF referrals have been sent. CM to follow. Plan: SNF Date Signed: 04/13/2018 01:18 PM Electronically Signed By:SILVIO Del Real
[2018-04-13] MEDS: ATORVASTATIN CALCIUM 10 MG TAB PO SCH (14:40)
[2018-04-13] MEDS: DULoxetine 60 MG CAP PO SCH (14:41)
[2018-04-13] MEDS: FERROUS SULFATE 325 MG TAB PO SCH (14:41)
[2018-04-13] MEDS: POLYETHYLENE GLYCOL 3350 17 GM PKT PO SCH (14:41)
[2018-04-13] MEDS: SUCRALFATE 1 GM TAB PO SCH ×3 (14:41→21:00)
[2018-04-13] MEDS: PANTOPRAZOLE SODIUM 40 MG TAB PO SCH ×2 (14:41→21:00)
[2018-04-13] MEDS: metFORMIN HCL 500 MG TAB PO SCH ×2 (14:41→17:54)
[2018-04-13] MEDS: ENOXAPARIN 40 MG/0.4 ML SYR SC SCH (14:41)
[2018-04-13] MEDS: AMITRIPTYLINE HCL 25 MG TAB PO SCH (14:42)
--- NOTE | 2018-04-14 06:37 | PDCONSULT ---
Medical Insurance Claims Processor Note: PSYCHIATRY MD CONSULTATION Consultation requested by Hospitalist Dr. Darrick Bills to assist in management /treatment of this patient with reported history of psychiatric issues and dementia. Date of service 04/13/2015 Reviewed available medical records, d/w hospitalist and healthcare risk control consultant, and interviewed patient until she terminated interview CC: When asked about her understanding why mental health consult requested: "I don't know...They thought I was sick and brought me here...(who?) the ambulance. " BRIEF HISTORY: 57yo CF admitted after being found in a ditch in [place]. She has a reported history of dementia, bipolar, hyperlipidemia, possible narcotic abuse, and chronic pain. She has been determined not to have decisional capacity at this time, and has an appointed MDPOA. Additional history indicates patient spent one night at [facility] prior to admission or in recent past. Patient reports "I'm not feeling well", feels "weak" and with aches/pains "everywhere". States pain medications help, but reports she has not been on any pain medications "since before I had a stroke and lost my memory". States she lived with her son but has not seen him since July, "I had a stroke and lost my memory, he doesn't know where I am. Feels "by now he probably filed a missing persons report and is trying to find me", and her plan is for him to pick her up from the hospital if he can be reached. Son is "Jake Dsouza", lives in [place]. Of note, child welfare caseworker indicates [facility] has made contact with son who reportedly does not want to have contact with his mother. Patient reports she is on no medications, and needs no medications, and that no medications will be helpful for her anyway, but was unable to engage in any further reasoning regarding even taking iron for anemia. "It's iron SULFATE, and that is NOT real iron." Attempted to explain that iron cannot be administered as just iron, and explained how very low her iron level was, but patient dismissed any attempt at explanation. Seems she has occasionally taken prescribed medications while in hospital, although typically refusing. Unable to engage patient in full psychiatric review of systems due to early termination of interview after patient became agitated. PAST PSYCHIATRIC HISTORY: per EMR: generalized anxiety disorder, bipolar, depression Patient denied any history of mental health diagnoses, psychiatric medications or other psychiatric treatment. Adamantly denies that she is taking any medications for mental health issues, although has been restarted on her reported prior medications of Duloxetine 120mg daily and Elavil 12.5mg daily during this admission. OF NOTE: these medications could also conceivably have been prescribed for pain conditions such as chronic pain, neuropathic pain, fibromyalgia etc. SUBSTANCE USE HISTORY: Per EMR: smokes cigarettes, denied EtOH or illicit drug use. Patient states she "never drank". Reports started smoking cigarettes "8 months ago, as many as possible", states they help with her memory. Patient did admit to history of Pain medication use, "only prescribed", and was involved with a pin clinic in [place], [place], did have a pain contract, and reports she was never kicked out of a pain clinic. Reports no recollection which pharmacy she would fill medications. PAST MEDICAL HISTORY: per EMR: Hyperlipidemia, GERD, COPD, sleep apnea, Ollier' s disease, chronic pain, vascular dementia, NIDDM SOCIAL HISTORY: Reports she grew up in [place], moved to [place] at age 28. Worked for [employer] in [employer]. 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 Lived most recently in [place] with her son. Has 2 kids- one son in [place], one in [place] with her ex who is also in [place]. States she is middle of 6 siblings, and only has 2 remaining siblings: Adrian Crooks in [place], [place], and Nayana Crooks in [place], [place]. States her parents , father of esophageal/stomach CA at age 50, and mother had multiple strokes and at age 79. name is Lianna, and she returned using maiden name Daksha after moved back to [facility] from [place] in 1987 or 1988. Was only about 7 years. MSE: lying in hospital bed completely flat on her back. did not want to sit up or elevate head of bed for interview. "I'm fine". disheveled, thin CF, unkempt, in hospital gown, missing one front upper tooth appears broken off, fair eye contact, normal rate/vol speech, articulate, mood "fine", affect restricted, disengaged, and seemed somewhat annoyed with questions but did engage with brief , generally goal-directed responses, vague with details, some questionable confabulation. Did not clinically appear in any physical distress or in pain. But did remain lying flat throughout interview. Slightly agitated when talking about iron, and her refusal of medications because feeling she needs no medications. 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 Did not appear responding to internal stimuli, and denied experiencing any AH/VH. Denied any SI. At one point patient stated, "no medications will help my illness", and then when asked to what illness she was referring, she abruptly became angry with hostile and raised tone of voice, "I don't want to talk about it, get the F*$# out of my room!" She was not redirectable to allow further interview after this outburst, so interview was terminated. Judgment seems poor, insight impaired/poor. Does seem to at least recognize she has memory problems. Also tone of voice was more quiet and flat when mentioning parents having of cancer and stroke. IMPRESSION: 57yo CF with history of vascular dementia, chronic pain, possible underlying psychiatric disorder and possible history of narcotic use disorder admitted with with encephalopathy and failure to thrive. Has been guarded with providing history versus unable to remember due to dementia/hx of CVA. She seems she may have some level of understanding that she has a serious illness (concern for malignancy) as evidenced by her reaction when asked about her illness. It may be that during this hospitalization it was the first time she was told of possible malignancy. She also expresses insight into having memory problems and prior stroke(s?). She has apparently been unable to care for herself in the community, and presently would not be considered safe to discharge without additional community support/supervision pending further assessment and diagnostic clarification. Delusional statements, as well as her flattened affect /reported apathy, given current available information and abbreviated interview , not clearly related to a primary psychiatric diagnosis, but patient does have a known dementia diagnosis. DIAGNOSIS: NEUROCOGNITIVE DISORDER, unspecified (hx of vascular dementia, possible malignancy, unknown hx of head trauma) RECOMMENDATIONS: -DISCONTINUE ELAVIL 12.5MG QD. Was being given in AM which could increase sedation, also given it's anticholinergic effects, would not be indicated with her history of dementia. Can contribute to AMS/confusion, especially if any taking extra such medication in the community. -CONTINUE DULOXETINE 120mg daily for now. This was reportedly her prior home dose. Although this is a high dose, no clear indication to change this at this time. Would question whether she had been med compliant prior to admission. Consistently denied any prior psychiatric history or medications. Not clear where her hx of BMD comes from in EMR, and current meds would not be indicated if Dx was BMD. As noted above, her Duloxetine and Elavil could have been prescribed for pain in attempt to avoid narcotics, or to address both pain and underlying depression/anxiety. Would need more collateral information to clarify history. Also, patient may have had a negative prior experience with psychiatry and thus is very guarded and reluctant to engage with mental health support, but this is speculative. -Consider check CPDMP. Has reported history of narcotic use. Also Pharmacist could check history of prior filled medications and dates and locations, could also track down a previous prescriber this way which could help with obtaining more collateral. -Would ask SPEECH THERAPY for cognitive evaluation to assess current baseline. -Consider NEUROLOGY CONSULT for additional diagnosis clarification regarding her dementia. CT with moderate atrophy, and has history in EMR of vascular dementia, but seems with greater frontal and temporal atrophy? Perhaps a Brain MRI could be helpful, also if any mets with her possible malignancy. -Consider sending PARANEOPLASTIC PANEL as well. -Would try to contact siblings whom she identified above for more information. Would also try and find out more history from son (past psych hx, substance use hx, behavioral issues, functional decline, etc) if he is willing to discuss, even though he does not want to be involved in her care. -Collateral from [facility] would be helpful, and from any other prior hospitalizations including [facility]. -B12, TSH wnl. RPR, HIV neg. -Appreciate consult. Behavioral Health will continue to follow. Will also alert Romana Tran, Behavioral Health RN, to this patient. -consider INTEGRATIVE MEDICINE consult for alternative therapies and nonpharmacological management of her reported chronic pain and any anxiety. Patient did state she reported a preference for "herbal tea" to any medication.
[2018-04-14 07:05] VITALS: BP 89/56
[2018-04-14] MEDS: ATORVASTATIN CALCIUM 10 MG TAB PO SCH (08:33)
[2018-04-14] MEDS: ENOXAPARIN 40 MG/0.4 ML SYR SC SCH (08:34)
[2018-04-14] MEDS: metFORMIN HCL 500 MG TAB PO SCH ×2 (08:34→17:59)
[2018-04-14] MEDS: DULoxetine 60 MG CAP PO SCH (08:34)
[2018-04-14] MEDS: FERROUS SULFATE 325 MG TAB PO SCH (08:34)
[2018-04-14] MEDS: SUCRALFATE 1 GM TAB PO SCH ×4 (08:34→20:51)
[2018-04-14] MEDS: POLYETHYLENE GLYCOL 3350 17 GM PKT PO SCH (08:35)
[2018-04-14] MEDS: PANTOPRAZOLE SODIUM 40 MG TAB PO SCH ×2 (08:35→20:51)
--- NOTE | 2018-04-14 13:26 | HOSPPROG ---
Hospitalist Progress Note Assessment/Plan: 57 yo F admitted w encephalopathy, failure of independent living Plan of care: I discussed with patient this morning about possible cancer diagnosis and need for further w/u, she maintained her refusal of evaluation and treatment I discussed w medical proxy, Dr. Fatima this morning who agrees that the likelihood of benefit (ie it is breast ca and er+) is pretty low. capacity or not, it is inappropriate to give chemotherapy or radiation to a patient who refuses it. He was also able to reach patient's son, who does not want to be contacted by patient and does not want to be her medical decision maker. "Amnesia/encephalopathy": * Long history of multiple psychiatric issues and also reported history of vascular dementia. Reviewing the social in medical issues of the past several months, she clearly is unable to manage her medical or other life affairs safely or effectively. microcytic anemia with iron deficiency raising concern for possible GI malignancy versus other cause of blood loss. defer scope until proxy decision maker can be found possible lung cancer with spiculated nodule and LAD * defer w/u at this time given patient's lack of capacity, repeat CT scan of the chest for stability in 2-3 months would be indicated at a minimum chronic pain - not currently on narcotics per her med rec, but with known history of narcotic abuse DM2 - * She is refusing fingerstick monitoring here * Her fasting sugars are normal off metformin, and she may not need metformin,, refusing labs, plan prior to obtain A1c HLD - lipitor htn - not on meds, BP ok GERD - has been on Protonix COPD - on RA, no exacerbation; continue some low-level tobacco use h/o nephrectomy dispo: Pending placement in coordination with , Ethics proph: enox Subjective: Patient has no complaints this morning Objective: Vital Signs Temp Pulse Resp BP Pulse Ox 36.7 C 90 16 89/56 L 93 04/14/18 07:04 04/14/18 07:04 04/14/18 07:04 04/14/18 07:04 04/14/18 07:04 Laboratory Results 04/05/18 04:38 04/05/18 04:38 04/13/18 04/14/18 04/15/18 05:59 05:59 05:59 Intake Total 2079 Balance 2079 - Physical Exam Constitutional: no apparent distress Eyes: PERRL Ears, Nose, Mouth, Throat: moist mucous membranes Cardiovascular: regular rate and rhythym Respiratory: no respiratory distress Gastrointestinal: soft, non-tender abdomen Genitourinary: No montelongo in urethra Skin: normal color Neurologic: No AAOx3 Psychiatric: poor insight, poor judgement, poor memory, No interacting appropriately ICD10 Worksheet Patient Problems: Problems Problem Status Onset Dementia Acute Failure to thrive in adult Acute
--- NOTE | 2018-04-14 15:38 | ASMTCMCOM ---
CM Note CM Note Notes: Dr. Robinson Fatima was able to speak w/ the pts son. Son does not want to be involved. Son does not think that pt needs to be in a locked facility. Alicami from [facility] still in the process of completing her assessment. Dr. Bustos consulted on pt. CM to follow. Plan: [facility] Date Signed: 04/14/2018 03:38 PM Electronically Signed By:SILVIO Del Real
[2018-04-15] MEDS: ENOXAPARIN 40 MG/0.4 ML SYR SC SCH (08:29)
[2018-04-15] MEDS: FERROUS SULFATE 325 MG TAB PO SCH (08:29)
[2018-04-15] MEDS: PANTOPRAZOLE SODIUM 40 MG TAB PO SCH ×2 (08:29→19:47)
[2018-04-15] MEDS: DULoxetine 60 MG CAP PO SCH (08:29)
[2018-04-15] MEDS: ATORVASTATIN CALCIUM 10 MG TAB PO SCH (08:29)
[2018-04-15] MEDS: POLYETHYLENE GLYCOL 3350 17 GM PKT PO SCH (08:29)
[2018-04-15] MEDS: SUCRALFATE 1 GM TAB PO SCH ×4 (08:29→19:47)
[2018-04-15] MEDS: metFORMIN HCL 500 MG TAB PO SCH ×2 (08:29→17:16)
--- NOTE | 2018-04-15 12:28 | HOSPPROG ---
Hospitalist Progress Note Assessment/Plan: 57 yo F admitted w encephalopathy, failure of independent living Plan of care: I discussed with patient about possible cancer diagnosis and need for further w/ u, she maintained her refusal of evaluation and treatment I discussed w medical proxy, Dr. Fatima who agrees that the likelihood of benefit (ie it is breast ca and er+) is pretty low. capacity or not, it is inappropriate to give chemotherapy or radiation to a patient who refuses it. He was also able to reach patient's son, who does not want to be contacted by patient and does not want to be her medical decision maker. "Amnesia/encephalopathy": * Long history of multiple psychiatric issues and also reported history of vascular dementia. Reviewing the social in medical issues of the past several months, she clearly is unable to manage her medical or other life affairs safely or effectively. Seen by psychiatry on 04/14 who recommends continuing current medication regimen microcytic anemia with iron deficiency raising concern for possible GI malignancy versus other cause of blood loss. defer scope until proxy decision maker can be found possible lung cancer with spiculated nodule and LAD * defer w/u at this time given patient's lack of capacity, repeat CT scan of the chest for stability in 2-3 months would be indicated at a minimum chronic pain - not currently on narcotics per her med rec, but with known history of narcotic abuse DM2 - * She is refusing fingerstick monitoring here * Her fasting sugars are normal off metformin, and she may not need metformin,, refusing labs, plan prior to obtain A1c HLD - lipitor htn - not on meds, BP ok GERD - has been on Protonix COPD - on RA, no exacerbation; continue some low-level tobacco use h/o nephrectomy dispo: Pending placement in coordination with CM, Ethics proph: enox Subjective: Patient reports some generalized pain this AM Objective: Vital Signs Temp Pulse Resp BP Pulse Ox 36.7 C 90 16 89/56 L 93 04/14/18 07:04 04/14/18 07:04 04/14/18 07:04 04/14/18 07:04 04/14/18 07:04 Laboratory Results 04/05/18 04:38 04/05/18 04:38 04/14/18 04/15/18 04/16/18 05:59 05:59 05:59 Intake Total 2079 Balance 2079 - Physical Exam Constitutional: no apparent distress Eyes: PERRL Ears, Nose, Mouth, Throat: moist mucous membranes Cardiovascular: No edema Respiratory: no respiratory distress Gastrointestinal: No distension Skin: normal color Psychiatric: poor insight, poor judgement ICD10 Worksheet Patient Problems: Problems Problem Status Onset Dementia Acute Failure to thrive in adult Acute
--- NOTE | 2018-04-15 14:57 | ASMTCMCOM ---
CM Note CM Note Notes: ava Avendaño coordinator came and did an assessment on pt. CM provided Jarocho all the documents she needed as supportive evidence for her write up. Pt will d/c to [facility] once level 2 michelle assessment has been completed. CM to follow. Plan: [facility] Date Signed: 04/15/2018 02:56 PM Electronically Signed By:SILVIO Del Real
[2018-04-16] MEDS: SUCRALFATE 1 GM TAB PO SCH ×4 (07:16→19:27)
[2018-04-16] MEDS: ATORVASTATIN CALCIUM 10 MG TAB PO SCH (07:16)
[2018-04-16] MEDS: metFORMIN HCL 500 MG TAB PO SCH ×2 (07:16→15:02)
[2018-04-16] MEDS: FERROUS SULFATE 325 MG TAB PO SCH (07:17)
[2018-04-16] MEDS: ENOXAPARIN 40 MG/0.4 ML SYR SC SCH (07:17)
[2018-04-16] MEDS: PANTOPRAZOLE SODIUM 40 MG TAB PO SCH ×2 (07:17→19:27)
[2018-04-16] MEDS: DULoxetine 60 MG CAP PO SCH (07:17)
[2018-04-16] MEDS: POLYETHYLENE GLYCOL 3350 17 GM PKT PO SCH (07:17)
--- NOTE | 2018-04-16 10:57 | HOSPPROG ---
Hospitalist Progress Note Assessment/Plan: 57 yo F admitted w encephalopathy, failure of independent living Plan of care: I discussed with patient about possible cancer diagnosis and need for further w/ u, she maintained her refusal of evaluation and treatment I discussed w medical proxy, Dr. Fatima who agrees that the likelihood of benefit (ie it is breast ca and er+) is pretty low. capacity or not, it is inappropriate to give chemotherapy or radiation to a patient who refuses it. He was also able to reach patient's son, who does not want to be contacted by patient and does not want to be her medical decision maker. "Amnesia/encephalopathy": * Long history of multiple psychiatric issues and also reported history of vascular dementia. Reviewing the social in medical issues of the past several months, she clearly is unable to manage her medical or other life affairs safely or effectively. Seen by psychiatry on 04/14 who recommends continuing current medication regimen microcytic anemia with iron deficiency raising concern for possible GI malignancy versus other cause of blood loss. defer scope until proxy decision maker can be found possible lung cancer with spiculated nodule and LAD * defer w/u at this time given patient's lack of capacity, repeat CT scan of the chest for stability in 2-3 months would be indicated at a minimum chronic pain - not currently on narcotics per her med rec, but with known history of narcotic abuse DM2 - * She is refusing fingerstick monitoring here * Her fasting sugars are normal off metformin, and she may not need metformin,, refusing labs, plan prior to obtain A1c HLD - lipitor htn - not on meds, BP ok GERD - has been on Protonix COPD - on RA, no exacerbation; continue some low-level tobacco use h/o nephrectomy dispo: Pending placement in coordination with CM, Ethics proph: enox Subjective: Patient reports no complaints this morning Objective: Vital Signs Temp Pulse Resp BP Pulse Ox 36.7 C 90 16 89/56 L 93 04/14/18 07:04 04/14/18 07:04 04/14/18 07:04 04/14/18 07:04 04/14/18 07:04 Laboratory Results 04/05/18 04:38 04/05/18 04:38 - Physical Exam Constitutional: no apparent distress Eyes: PERRL Ears, Nose, Mouth, Throat: moist mucous membranes Cardiovascular: No edema Respiratory: no respiratory distress Gastrointestinal: No distension Genitourinary: No montelongo in urethra Skin: normal color Neurologic: AAOx3 Psychiatric: poor insight, poor judgement ICD10 Worksheet Patient Problems: Problems Problem Status Onset Dementia Acute Failure to thrive in adult Acute
[2018-04-17] MEDS: ENOXAPARIN 40 MG/0.4 ML SYR SC SCH (09:45)
[2018-04-17] MEDS: DULoxetine 60 MG CAP PO SCH (09:45)
[2018-04-17] MEDS: ATORVASTATIN CALCIUM 10 MG TAB PO SCH (09:45)
[2018-04-17] MEDS: POLYETHYLENE GLYCOL 3350 17 GM PKT PO SCH (09:46)
[2018-04-17] MEDS: PANTOPRAZOLE SODIUM 40 MG TAB PO SCH ×2 (09:46→21:09)
[2018-04-17] MEDS: FERROUS SULFATE 325 MG TAB PO SCH (09:46)
[2018-04-17] MEDS: SUCRALFATE 1 GM TAB PO SCH ×4 (09:46→21:09)
[2018-04-17] MEDS: metFORMIN HCL 500 MG TAB PO SCH ×2 (09:46→18:06)
--- NOTE | 2018-04-17 10:51 | HOSPPROG ---
Hospitalist Progress Note Assessment/Plan: 57 yo F admitted w encephalopathy, failure of independent living Plan of care: I discussed with patient about possible cancer diagnosis and need for further w/ u, she maintained her refusal of evaluation and treatment I discussed w medical proxy, Dr. Fatima who agrees that the likelihood of benefit (ie it is breast ca and er+) is pretty low. capacity or not, it is inappropriate to give chemotherapy or radiation to a patient who refuses it. He was also able to reach patient's son, who does not want to be contacted by patient and does not want to be her medical decision maker. "Amnesia/encephalopathy": * Long history of multiple psychiatric issues and also reported history of vascular dementia. Reviewing the social in medical issues of the past several months, she clearly is unable to manage her medical or other life affairs safely or effectively. Seen by psychiatry on 04/14 who recommends continuing current medication regimen microcytic anemia with iron deficiency raising concern for possible GI malignancy versus other cause of blood loss. defer scope until proxy decision maker can be found possible lung cancer with spiculated nodule and LAD * defer w/u at this time given patient's lack of capacity, repeat CT scan of the chest for stability in 2-3 months would be indicated at a minimum chronic pain - not currently on narcotics per her med rec, but with known history of narcotic abuse DM2 - * She is refusing fingerstick monitoring here * Her fasting sugars are normal off metformin, and she may not need metformin,, refusing labs, plan prior to obtain A1c HLD - lipitor htn - not on meds, BP ok GERD - has been on Protonix COPD - on RA, no exacerbation; continue some low-level tobacco use h/o nephrectomy dispo: Pending placement in coordination with CM, Ethics proph: enox Subjective: Patient reports no complaints this morning Objective: Vital Signs Temp Pulse Resp BP Pulse Ox 36.7 C 90 16 89/56 L 93 04/14/18 07:04 04/14/18 07:04 04/14/18 07:04 04/14/18 07:04 04/14/18 07:04 Laboratory Results 04/05/18 04:38 04/05/18 04:38 04/16/18 04/17/18 04/18/18 05:59 05:59 05:59 Intake Total 500 Balance 500 - Physical Exam Constitutional: no apparent distress Eyes: EOMI Cardiovascular: No edema Respiratory: no respiratory distress Gastrointestinal: No distension Genitourinary: No montelongo in urethra Skin: normal color Neurologic: AAOx3 Psychiatric: flat affect ICD10 Worksheet Patient Problems: Problems Problem Status Onset Dementia Acute Failure to thrive in adult Acute
[2018-04-18] MEDS: ENOXAPARIN 40 MG/0.4 ML SYR SC SCH (08:36)
[2018-04-18] MEDS: ATORVASTATIN CALCIUM 10 MG TAB PO SCH (08:36)
[2018-04-18] MEDS: metFORMIN HCL 500 MG TAB PO SCH ×2 (08:36→17:43)
[2018-04-18] MEDS: DULoxetine 60 MG CAP PO SCH (08:36)
[2018-04-18] MEDS: SUCRALFATE 1 GM TAB PO SCH ×4 (08:36→20:25)
[2018-04-18] MEDS: POLYETHYLENE GLYCOL 3350 17 GM PKT PO SCH (08:37)
[2018-04-18] MEDS: PANTOPRAZOLE SODIUM 40 MG TAB PO SCH ×2 (08:37→20:25)
[2018-04-18] MEDS: FERROUS SULFATE 325 MG TAB PO SCH (08:37)
--- NOTE | 2018-04-18 11:51 | HOSPPROG ---
Hospitalist Progress Note Assessment/Plan: 57 yo F admitted w encephalopathy, failure of independent living Plan of care: I discussed with patient about possible cancer diagnosis and need for further w/ u, she maintained her refusal of evaluation and treatment I discussed w medical proxy, Dr. Fatima who agrees that the likelihood of benefit (ie it is breast ca and er+) is pretty low. capacity or not, it is inappropriate to give chemotherapy or radiation to a patient who refuses it. He was also able to reach patient's son, who does not want to be contacted by patient and does not want to be her medical decision maker. "Amnesia/encephalopathy": * Long history of multiple psychiatric issues and also reported history of vascular dementia. Reviewing the social in medical issues of the past several months, she clearly is unable to manage her medical or other life affairs safely or effectively. Seen by psychiatry on 04/14 who recommends continuing current medication regimen microcytic anemia with iron deficiency raising concern for possible GI malignancy versus other cause of blood loss. defer scope until proxy decision maker can be found possible lung cancer with spiculated nodule and LAD * defer w/u at this time given patient's lack of capacity, repeat CT scan of the chest for stability in 2-3 months would be indicated at a minimum chronic pain - not currently on narcotics per her med rec, but with known history of narcotic abuse DM2 - * She is refusing fingerstick monitoring here * Her fasting sugars are normal off metformin, and she may not need metformin,, refusing labs, plan prior to obtain A1c HLD - lipitor htn - not on meds, BP ok GERD - has been on Protonix COPD - on RA, no exacerbation; continue some low-level tobacco use h/o nephrectomy dispo: Pending placement in coordination with CM, Ethics proph: enox Subjective: Patient attempted to leave unit today, was escorted back to room by police Objective: Vital Signs Temp Pulse Resp BP Pulse Ox 36.7 C 90 16 89/56 L 93 04/14/18 07:04 04/14/18 07:04 04/14/18 07:04 04/14/18 07:04 04/14/18 07:04 Laboratory Results 04/05/18 04:38 04/05/18 04:38 04/17/18 04/18/18 04/19/18 05:59 05:59 05:59 Intake Total 500 Balance 500 - Physical Exam Constitutional: no apparent distress, chronically ill appearing, unkempt Eyes: PERRL Ears, Nose, Mouth, Throat: moist mucous membranes Cardiovascular: No edema Respiratory: no respiratory distress Gastrointestinal: No distension Genitourinary: No montelongo in urethra Skin: normal color Neurologic: No AAOx3 Psychiatric: poor insight, No interacting appropriately ICD10 Worksheet Patient Problems: Problems Problem Status Onset Dementia Acute Failure to thrive in adult Acute
--- NOTE | 2018-04-18 16:23 | ASMTCMCOM ---
CM Note CM Note Notes: NATALIA spoke to JAMEL Avendaño coordinator. She is not recommending SNF. She is recommending [facility]. Jarocho is also recommending guardianship. NATALIA spoke to Jessica about this case. NATALIA updated Vero with ethics. Vero will update Robinson Fatima (proxy). Referrals sent out to numerous [facility] facilities. CM to follow. Plan: TBD Date Signed: 04/18/2018 04:23 PM Electronically Signed By:SILVIO Del Real
[2018-04-19] MEDS: SUCRALFATE 1 GM TAB PO SCH ×4 (07:54→21:12)
[2018-04-19] MEDS: metFORMIN HCL 500 MG TAB PO SCH ×2 (07:54→17:33)
[2018-04-19] MEDS: ATORVASTATIN CALCIUM 10 MG TAB PO SCH (08:50)
[2018-04-19] MEDS: ENOXAPARIN 40 MG/0.4 ML SYR SC SCH (08:50)
[2018-04-19] MEDS: FERROUS SULFATE 325 MG TAB PO SCH (08:50)
[2018-04-19] MEDS: PANTOPRAZOLE SODIUM 40 MG TAB PO SCH ×2 (08:51→21:12)
[2018-04-19] MEDS: POLYETHYLENE GLYCOL 3350 17 GM PKT PO SCH (08:51)
--- NOTE | 2018-04-19 13:19 | ASMTCMCOM ---
CM Note CM Note Notes: Updates sent to [facility] per their request. Romana Tran stopped by to see pt. Jossy with [facility] will stop by tomorrow AM to meet w/ pt. They have a locked SNF facility. CM to follow. Plan: TBD Date Signed: 04/19/2018 01:18 PM Electronically Signed By:SILVIO Del Real
--- NOTE | 2018-04-19 16:00 | HOSPPROG ---
Hospitalist Progress Note Assessment/Plan: The patient is a 57-year-old female with PMH multiple psychiatric issues, vascular dementia who was admitted for encephalopathy and failure of independent living. ASSESSMENT/PLAN: Encephalopathy, chronic progressive History of vascular dementia Psychiatric disorders Iron deficiency anemia Suspected lung cancer Chronic pain Diabetes mellitus type 2- controlled w/ diet Hyperlipidemia Hypertension, controlled w/ diet GERD COPD History of nephrectomy -MD Proxy has been involved w/ the case- recommends [facility] placement. -Pursuing legal guardian. -Pt's NOK refuses to be involved w/ the case. -Further workup/Tx for cancer not recommended because of progressive dementia. Pt is hospice appropriate. -Palliative consult - for worsening dementia, chronic pain, suspected cancer. VTE prophylaxis: Lovenox Code Status: Full code Status: Inpatient for greater than 2 midnight stay. Disposition: [facility] with discharge to [facility] when pt obtains placement. ____ SUBJECTIVE: Today patient says she feels fine. No complaints. OBJECTIVE: Physical Exam: General: The patient is a thin female who is alert and in no acute distress. HEENT: normocephalic, extraocular movements intact, conjunctivae clear. Mucous membranes moist Neck: trachea midline, no visible masses. Resp: unlabored. Abd: soft and nondistended. Musculoskeletal: Normal muscle tone/bulk. Neuro: cranial nerves II XII grossly intact. Intact gross motor and sensory function. Psych: Appropriate mood and flat affect. Skin: + pallor. No petechiae. Heme/lymph: No peripheral edema at bilateral lower extremities. Labs/Imaging/Other Tests: Personally reviewed/interpreted. Objective: Vital Signs Temp Pulse Resp BP Pulse Ox 36.7 C 90 16 89/56 L 93 04/14/18 07:04 04/14/18 07:04 04/14/18 07:04 04/14/18 07:04 04/14/18 07:04 Laboratory Results 04/05/18 04:38 04/05/18 04:38 - Time Spent With Patient Time Spent with Patient: greater than 35 minutes Time Spent with Patient: Greater than 35 minutes spent on this patients care, greater than 50% of time spent counseling, educating, and coordinating care regarding the above mentioned plan. ICD10 Worksheet Patient Problems: Problems Problem Status Onset Dementia Acute Failure to thrive in adult Acute
[2018-04-20] MEDS: PANTOPRAZOLE SODIUM 40 MG TAB PO SCH ×2 (08:06→20:24)
[2018-04-20] MEDS: ATORVASTATIN CALCIUM 10 MG TAB PO SCH (08:06)
[2018-04-20] MEDS: SUCRALFATE 1 GM TAB PO SCH ×4 (08:06→20:24)
[2018-04-20] MEDS: FERROUS SULFATE 325 MG TAB PO SCH (08:06)
[2018-04-20] MEDS: ENOXAPARIN 40 MG/0.4 ML SYR SC SCH (08:06)
[2018-04-20] MEDS: metFORMIN HCL 500 MG TAB PO SCH ×2 (08:06→20:24)
[2018-04-20] MEDS: POLYETHYLENE GLYCOL 3350 17 GM PKT PO SCH (08:06)
--- NOTE | 2018-04-20 17:14 | ASMTCMCOM ---
CM Note CM Note Notes: Reps from [facility] in [place] here to evaluate pt, NATALIA gave notes from Romana Duke and name for MD proxy. They will follow up with NATALIA on Wednesday. DC Plan: TBD Date Signed: 04/20/2018 05:13 PM Electronically Signed By:Romana Osborn RN
--- NOTE | 2018-04-20 18:55 | HOSPPROG ---
Hospitalist Progress Note Assessment/Plan: The patient is a 57-year-old female with PMH multiple psychiatric issues, vascular dementia who was admitted for encephalopathy and failure of independent living. ASSESSMENT/PLAN: Encephalopathy, chronic progressive History of vascular dementia Psychiatric disorders Iron deficiency anemia Suspected lung cancer Chronic pain Diabetes mellitus type 2- controlled w/ diet Hyperlipidemia Hypertension, controlled w/ diet GERD COPD History of nephrectomy -MD Proxy has been involved w/ the case- recommends [facility] placement. -Pursuing legal guardian. -Pt's NOK refuses to be involved w/ the case. -Further workup/Tx for cancer not recommended because of progressive dementia. Pt is hospice appropriate. -Palliative consult - for worsening dementia, chronic pain, suspected cancer. VTE prophylaxis: Lovenox Code Status: Full code Status: Inpatient for greater than 2 midnight stay. Disposition: [facility] with discharge to [facility] when pt obtains placement. ____ SUBJECTIVE: Today patient says she feels fine. No complaints. OBJECTIVE: Physical Exam: General: The patient is a thin female who is alert and in no acute distress. HEENT: normocephalic, extraocular movements intact, conjunctivae clear. Mucous membranes moist Neck: trachea midline, no visible masses. Resp: unlabored. Abd: soft and nondistended. Musculoskeletal: Normal muscle tone/bulk. Neuro: cranial nerves II XII grossly intact. Intact gross motor and sensory function. Psych: Appropriate mood and flat affect. Skin: + pallor. No petechiae. Heme/lymph: No peripheral edema at bilateral lower extremities. Labs/Imaging/Other Tests: Personally reviewed/interpreted. Objective: Vital Signs Temp Pulse Resp BP Pulse Ox 36.7 C 90 16 89/56 L 93 04/14/18 07:04 04/14/18 07:04 04/14/18 07:04 04/14/18 07:04 04/14/18 07:04 Laboratory Results 04/05/18 04:38 04/05/18 04:38 04/19/18 04/20/18 04/21/18 05:59 05:59 05:59 Intake Total 800 Balance 800 ICD10 Worksheet Patient Problems: Problems Problem Status Onset Dementia Acute Failure to thrive in adult Acute
[2018-04-21] MEDS: ENOXAPARIN 40 MG/0.4 ML SYR SC SCH (08:35)
[2018-04-21] MEDS: ATORVASTATIN CALCIUM 10 MG TAB PO SCH (08:35)
[2018-04-21] MEDS: PANTOPRAZOLE SODIUM 40 MG TAB PO SCH ×2 (08:35→19:53)
[2018-04-21] MEDS: metFORMIN HCL 500 MG TAB PO SCH ×2 (08:35→17:55)
[2018-04-21] MEDS: FERROUS SULFATE 325 MG TAB PO SCH (08:35)
[2018-04-21] MEDS: SUCRALFATE 1 GM TAB PO SCH ×4 (08:35→19:53)
[2018-04-21] MEDS: POLYETHYLENE GLYCOL 3350 17 GM PKT PO SCH (08:36)
--- NOTE | 2018-04-21 17:32 | HOSPPROG ---
Hospitalist Progress Note Assessment/Plan: The patient is a 57-year-old female with PMH multiple psychiatric issues, vascular dementia who was admitted for encephalopathy and failure of independent living. ASSESSMENT/PLAN: Encephalopathy, chronic progressive History of vascular dementia Psychiatric disorders Iron deficiency anemia Suspected lung cancer Chronic pain Diabetes mellitus type 2- controlled w/ diet Hyperlipidemia Hypertension, controlled w/ diet GERD COPD History of nephrectomy -MD Proxy has been involved w/ the case- recommends [facility] placement. -Pursuing legal guardian. -Pt's NOK refuses to be involved w/ the case. -Further workup/Tx for cancer not recommended because of progressive dementia. Pt is hospice appropriate. -Palliative consult - for worsening dementia, chronic pain, suspected cancer. -Renew order for [facility]. VTE prophylaxis: Lovenox Code Status: Full code Status: Inpatient for greater than 2 midnight stay. Disposition: [facility] with discharge to [facility] when pt obtains placement. ____ SUBJECTIVE: Today patient says she feels fine. No complaints. OBJECTIVE: Physical Exam: General: The patient is a thin female who is alert and in no acute distress. HEENT: normocephalic, extraocular movements intact, conjunctivae clear. Mucous membranes moist Neck: trachea midline, no visible masses. Resp: unlabored. Abd: soft and nondistended. Musculoskeletal: Normal muscle tone/bulk. Neuro: cranial nerves II XII grossly intact. Intact gross motor and sensory function. Psych: Appropriate mood and flat affect. Skin: + pallor. No petechiae. Heme/lymph: No peripheral edema at bilateral lower extremities. Labs/Imaging/Other Tests: Personally reviewed/interpreted. Objective: Vital Signs Temp Pulse Resp BP Pulse Ox 36.7 C 90 16 89/56 L 93 04/14/18 07:04 04/14/18 07:04 04/14/18 07:04 04/14/18 07:04 04/14/18 07:04 Laboratory Results 04/05/18 04:38 04/05/18 04:38 04/20/18 04/21/18 04/22/18 05:59 05:59 05:59 Intake Total 800 Balance 800 ICD10 Worksheet Patient Problems: Problems Problem Status Onset Dementia Acute Failure to thrive in adult Acute
[2018-04-22] MEDS: ENOXAPARIN 40 MG/0.4 ML SYR SC SCH (09:36)
[2018-04-22] MEDS: metFORMIN HCL 500 MG TAB PO SCH ×2 (09:36→17:48)
[2018-04-22] MEDS: SUCRALFATE 1 GM TAB PO SCH ×4 (09:36→21:03)
[2018-04-22] MEDS: FERROUS SULFATE 325 MG TAB PO SCH (09:36)
[2018-04-22] MEDS: ATORVASTATIN CALCIUM 10 MG TAB PO SCH (09:36)
[2018-04-22] MEDS: POLYETHYLENE GLYCOL 3350 17 GM PKT PO SCH (09:37)
[2018-04-22] MEDS: PANTOPRAZOLE SODIUM 40 MG TAB PO SCH ×2 (09:37→21:03)
--- NOTE | 2018-04-22 13:43 | HOSPPROG ---
Hospitalist Progress Note Assessment/Plan: The patient is a 57-year-old female with PMH multiple psychiatric issues, vascular dementia who was admitted for encephalopathy and failure of independent living. ASSESSMENT/PLAN: Encephalopathy, chronic progressive History of vascular dementia Psychiatric disorders Iron deficiency anemia Suspected lung cancer Chronic pain Diabetes mellitus type 2- controlled w/ diet Hyperlipidemia Hypertension, controlled w/ diet GERD COPD History of nephrectomy -MD Proxy has been involved w/ the case- recommends [facility] placement. -Pursuing legal guardian. -Pt's NOK refuses to be involved w/ the case. -Further workup/Tx for cancer not recommended because of progressive dementia. Pt is hospice appropriate. -Palliative consulted - for worsening dementia, chronic pain, suspected cancer. -Renew order for MIH - pt does not have capacity to make own medical decisions and is a danger to self. VTE prophylaxis: Lovenox Code Status: Full code Status: Inpatient for greater than 2 midnight stay. Disposition: [facility] with discharge to [facility] when pt obtains placement. ____ SUBJECTIVE: Today patient says she feels fine. No complaints. OBJECTIVE: Physical Exam: General: The patient is a thin female who is alert and in no acute distress. HEENT: normocephalic, extraocular movements intact, conjunctivae clear. Mucous membranes moist Neck: trachea midline, no visible masses. Resp: unlabored. Abd: soft and nondistended. Musculoskeletal: Normal muscle tone/bulk. Neuro: cranial nerves II XII grossly intact. Intact gross motor and sensory function. Psych: Appropriate mood and flat affect. Skin: + pallor. No petechiae. Heme/lymph: No peripheral edema at bilateral lower extremities. Labs/Imaging/Other Tests: Personally reviewed/interpreted. Objective: Vital Signs Temp Pulse Resp BP Pulse Ox 36.7 C 90 16 89/56 L 93 04/14/18 07:04 04/14/18 07:04 04/14/18 07:04 04/14/18 07:04 04/14/18 07:04 Laboratory Results 04/05/18 04:38 04/05/18 04:38 04/21/18 04/22/18 04/23/18 05:59 05:59 05:59 Intake Total 800 Balance 800 ICD10 Worksheet Patient Problems: Problems Problem Status Onset Dementia Acute Failure to thrive in adult Acute
[2018-04-23] MEDS: SUCRALFATE 1 GM TAB PO SCH ×4 (08:33→20:27)
[2018-04-23] MEDS: ENOXAPARIN 40 MG/0.4 ML SYR SC SCH (08:33)
[2018-04-23] MEDS: metFORMIN HCL 500 MG TAB PO SCH ×2 (08:33→17:36)
[2018-04-23] MEDS: ATORVASTATIN CALCIUM 10 MG TAB PO SCH (08:33)
[2018-04-23] MEDS: FERROUS SULFATE 325 MG TAB PO SCH (08:34)
[2018-04-23] MEDS: POLYETHYLENE GLYCOL 3350 17 GM PKT PO SCH (08:34)
[2018-04-23] MEDS: PANTOPRAZOLE SODIUM 40 MG TAB PO SCH ×2 (08:34→20:27)
--- NOTE | 2018-04-23 13:43 | ASMTCMCOM ---
CM Note CM Note Notes: CM left a msg for [facility] in [place] (P#: [phone]) and requested a call back. CM to follow up on placement on Wednesday. CM to follow. Plan: TBD Date Signed: 04/23/2018 01:42 PM Electronically Signed By:SILVIO Del Real
--- NOTE | 2018-04-23 16:06 | HOSPPROG ---
Hospitalist Progress Note Assessment/Plan: The patient is a 57-year-old female with PMH multiple psychiatric issues, vascular dementia who was admitted for encephalopathy and failure of independent living. ASSESSMENT/PLAN: Encephalopathy, chronic progressive History of vascular dementia Psychiatric disorders Iron deficiency anemia Suspected lung cancer Chronic pain Diabetes mellitus type 2- controlled w/ diet Hyperlipidemia Hypertension, controlled w/ diet GERD COPD History of nephrectomy -MD Proxy has been involved w/ the case- recommends [facility] placement. -Pursuing legal guardian. -Pt's NOK refuses to be involved w/ the case. -Further workup/Tx for cancer not recommended because of progressive dementia. Pt is hospice appropriate. -Palliative consulted - for worsening dementia, chronic pain, suspected cancer. -Renew order for MIH - pt does not have capacity to make own medical decisions and is a danger to self. VTE prophylaxis: Lovenox Code Status: Full code Status: Inpatient for greater than 2 midnight stay. Disposition: [facility] with discharge to [facility] when pt obtains placement. ____ SUBJECTIVE: Today patient says she feels fine. No complaints. OBJECTIVE: Physical Exam: General: The patient is a thin female who is alert and in no acute distress. HEENT: normocephalic, extraocular movements intact, conjunctivae clear. Mucous membranes moist Neck: trachea midline, no visible masses. Resp: unlabored. Abd: soft and nondistended. Musculoskeletal: Normal muscle tone/bulk. Neuro: cranial nerves II XII grossly intact. Intact gross motor and sensory function. Psych: Appropriate mood and flat affect. Skin: + pallor. No petechiae. Heme/lymph: No peripheral edema at bilateral lower extremities. Labs/Imaging/Other Tests: Personally reviewed/interpreted. Objective: Vital Signs Temp Pulse Resp BP Pulse Ox 36.7 C 90 16 89/56 L 93 04/14/18 07:04 04/14/18 07:04 04/14/18 07:04 04/14/18 07:04 04/14/18 07:04 Laboratory Results 04/05/18 04:38 04/05/18 04:38 04/22/18 04/23/18 04/24/18 05:59 05:59 05:59 Intake Total 960 Balance 960 ICD10 Worksheet Patient Problems: Problems Problem Status Onset Dementia Acute Failure to thrive in adult Acute
[2018-04-24] MEDS: SUCRALFATE 1 GM TAB PO SCH ×4 (07:42→20:45)
[2018-04-24] MEDS: metFORMIN HCL 500 MG TAB PO SCH ×2 (07:42→17:31)
[2018-04-24] MEDS: POLYETHYLENE GLYCOL 3350 17 GM PKT PO SCH (08:22)
[2018-04-24] MEDS: PANTOPRAZOLE SODIUM 40 MG TAB PO SCH ×2 (08:22→20:45)
[2018-04-24] MEDS: ATORVASTATIN CALCIUM 10 MG TAB PO SCH (08:22)
[2018-04-24] MEDS: ENOXAPARIN 40 MG/0.4 ML SYR SC SCH (08:22)
[2018-04-24] MEDS: FERROUS SULFATE 325 MG TAB PO SCH (08:22)
--- NOTE | 2018-04-24 13:22 | HOSPPROG ---
Hospitalist Progress Note Assessment/Plan: The patient is a 57-year-old female with PMH multiple psychiatric issues, vascular dementia who was admitted for encephalopathy and failure of independent living. ASSESSMENT/PLAN: Encephalopathy, chronic progressive History of vascular dementia Psychiatric disorders Iron deficiency anemia Suspected lung cancer Chronic pain Diabetes mellitus type 2- controlled w/ diet Hyperlipidemia Hypertension, controlled w/ diet GERD COPD History of nephrectomy -MD Proxy has been involved w/ the case- recommends [facility] placement. -Pursuing legal guardian. -Pt's NOK refuses to be involved w/ the case. -Further workup/Tx for cancer not recommended because of progressive dementia. Pt is hospice appropriate. -Palliative consulted - for worsening dementia, chronic pain, suspected cancer. -Renew order for MIH - pt does not have capacity to make own medical decisions and is a danger to self. VTE prophylaxis: Lovenox Code Status: Full code Status: Inpatient for greater than 2 midnight stay. Disposition: [facility] with [facility] to [facility] when pt obtains placement. ____ SUBJECTIVE: Today patient says she feels fine. No complaints. OBJECTIVE: Physical Exam: General: The patient is a thin female who is alert and in no acute distress. HEENT: normocephalic, extraocular movements intact, conjunctivae clear. Mucous membranes moist Neck: trachea midline, no visible masses. Resp: unlabored. Abd: soft and nondistended. Musculoskeletal: Normal muscle tone/bulk. Neuro: cranial nerves II XII grossly intact. Intact gross motor and sensory function. Psych: Appropriate mood and flat affect. Skin: + pallor. No petechiae. Heme/lymph: No peripheral edema at bilateral lower extremities. Objective: Vital Signs Temp Pulse Resp BP Pulse Ox 36.7 C 90 16 89/56 L 93 04/14/18 07:04 04/14/18 07:04 04/14/18 07:04 04/14/18 07:04 04/14/18 07:04 Laboratory Results 04/05/18 04:38 04/05/18 04:38 04/23/18 04/24/18 04/25/18 05:59 05:59 05:59 Intake Total 960 Balance 960 ICD10 Worksheet Patient Problems: Problems Problem Status Onset Dementia Acute Failure to thrive in adult Acute
[2018-04-25] MEDS: ENOXAPARIN 40 MG/0.4 ML SYR SC SCH (10:26)
[2018-04-25] MEDS: FERROUS SULFATE 325 MG TAB PO SCH (10:26)
[2018-04-25] MEDS: ATORVASTATIN CALCIUM 10 MG TAB PO SCH (10:26)
[2018-04-25] MEDS: SUCRALFATE 1 GM TAB PO SCH ×4 (10:27→20:32)
[2018-04-25] MEDS: POLYETHYLENE GLYCOL 3350 17 GM PKT PO SCH (10:27)
[2018-04-25] MEDS: PANTOPRAZOLE SODIUM 40 MG TAB PO SCH ×2 (10:27→20:31)
[2018-04-25] MEDS: metFORMIN HCL 500 MG TAB PO SCH ×2 (10:27→17:29)
--- NOTE | 2018-04-25 16:45 | HOSPPROG ---
Hospitalist Progress Note Assessment/Plan: 57-year-old female with PMH multiple psychiatric issues, vascular dementia who was admitted for encephalopathy and failure of independent living. #Chronic progressive encephalopathy: - Unclear etiology. She does have some vascular dementia - She is unable to live independently - I do not think that she has capacity to make decisions - MD proxy has been involved - CM working on [facility] placement and pursuing legal guardian - Patient's NOK refuses to be involved - Renewed order for medical incapacity hold #Possible lung cancer - Deferring further work up/evaluation in setting of above - Would likely be hospice appropriate # chronic pain - not currently on narcotics per her med rec, but reported history of narcotic use # DM2 - hold metformin with recent contrast # HLD - lipitor # htn - not on meds, BP ok # GERD - protonix # COPD - on RA, no exacerbation # h/o nephrectomy # bipolar/anxiety/depression - cymbalta, elavil are on her med list # vascular dementia VTE prophylaxis: Lovenox Code Status: Full code Dispo: Remain inpatient, unsafe to discharge. Unclear anticipated date of discharge. Subjective: Resting in bed, denies complaints. Objective: Vital Signs Temp Pulse Resp BP Pulse Ox 36.7 C 90 16 89/56 L 93 04/14/18 07:04 04/14/18 07:04 04/14/18 07:04 04/14/18 07:04 04/14/18 07:04 Laboratory Results 04/05/18 04:38 04/05/18 04:38 - Physical Exam Constitutional: no apparent distress, appears nourished, not in pain Eyes: PERRL, anicteric sclera, EOMI Ears, Nose, Mouth, Throat: moist mucous membranes, hearing normal, ears appear normal, no oral mucosal ulcers Cardiovascular: regular rate and rhythym, no murmur, rub, or gallop Respiratory: no respiratory distress, no rales or rhonchi, clear to auscultation Gastrointestinal: normoactive bowel sounds, soft, non-tender abdomen, no palpable masses Genitourinary: no bladder fullness, no bladder tenderness, no renal bruits Skin: no rashes or abrasions, no fluctuance, no induration Musculoskeletal: full muscle strength, no muscle tenderness, normal joint ROM Neurologic: AAOx3, sensation intact bilaterally Psychiatric: not anxious, encephalopathic ICD10 Worksheet Patient Problems: Problems Problem Status Onset Dementia Acute Failure to thrive in adult Acute
[2018-04-26] MEDS: SUCRALFATE 1 GM TAB PO SCH ×4 (07:30→19:24)
[2018-04-26] MEDS: metFORMIN HCL 500 MG TAB PO SCH ×2 (07:31→17:42)
[2018-04-26] MEDS: FERROUS SULFATE 325 MG TAB PO SCH (08:08)
[2018-04-26] MEDS: ATORVASTATIN CALCIUM 10 MG TAB PO SCH (08:08)
[2018-04-26] MEDS: ENOXAPARIN 40 MG/0.4 ML SYR SC SCH (08:08)
[2018-04-26] MEDS: PANTOPRAZOLE SODIUM 40 MG TAB PO SCH ×2 (08:09→19:24)
[2018-04-26] MEDS: POLYETHYLENE GLYCOL 3350 17 GM PKT PO SCH (08:09)
--- NOTE | 2018-04-26 14:27 | HOSPPROG ---
Hospitalist Progress Note Assessment/Plan: 57-year-old female with PMH multiple psychiatric issues, vascular dementia who was admitted for encephalopathy and failure of independent living. #Chronic progressive encephalopathy: - Unclear etiology. She does have some vascular dementia - She is unable to live independently - I do not think that she has capacity to make decisions - MD proxy has been involved - CM working on [facility] placement and pursuing legal guardian - Patient's NOK refuses to be involved - Renewed order for medical incapacity hold #Possible lung cancer - Deferring further work up/evaluation in setting of above - Would likely be hospice appropriate, will eval once placement set up # chronic pain - not currently on narcotics per her med rec, but reported history of narcotic use # DM2 - holding metformin # HLD - lipitor # htn - not on meds, BP ok # GERD - protonix # COPD - on RA, no exacerbation # h/o nephrectomy # bipolar/anxiety/depression - cymbalta, elavil are on her med list # vascular dementia VTE prophylaxis: Lovenox Code Status: Full code Dispo: Remain inpatient, unsafe to discharge. Unclear anticipated date of discharge. Subjective: No changes. Feeling well without complaints. Knows she may have lung cancer, steadfast that she doesn't want this evaluated or treated. She is still unable to tell me why she is here, how she got here, or future plans. Objective: Vital Signs Temp Pulse Resp BP Pulse Ox 36.7 C 90 16 89/56 L 93 04/14/18 07:04 04/14/18 07:04 04/14/18 07:04 04/14/18 07:04 04/14/18 07:04 Laboratory Results 04/05/18 04:38 04/05/18 04:38 04/25/18 04/26/18 04/27/18 05:59 05:59 05:59 Intake Total 500 Balance 500 - Physical Exam Constitutional: no apparent distress, cachectic Eyes: PERRL, anicteric sclera, EOMI Ears, Nose, Mouth, Throat: moist mucous membranes, hearing normal, ears appear normal, no oral mucosal ulcers Cardiovascular: regular rate and rhythym, no murmur, rub, or gallop Respiratory: no respiratory distress, no rales or rhonchi, clear to auscultation Gastrointestinal: normoactive bowel sounds, soft, non-tender abdomen, no palpable masses Genitourinary: no bladder fullness, no bladder tenderness, no renal bruits Skin: no rashes or abrasions, no fluctuance, no induration Musculoskeletal: full muscle strength, no muscle tenderness, normal joint ROM Neurologic: AAOx3, sensation intact bilaterally Psychiatric: interacting appropriately, not anxious, not encephalopathic, thought process linear ICD10 Worksheet Patient Problems: Problems Problem Status Onset Dementia Acute Failure to thrive in adult Acute
[2018-04-27] MEDS: SUCRALFATE 1 GM TAB PO SCH ×4 (07:26→19:13)
[2018-04-27] MEDS: metFORMIN HCL 500 MG TAB PO SCH ×2 (08:09→17:43)
[2018-04-27] MEDS: ATORVASTATIN CALCIUM 10 MG TAB PO SCH (08:45)
[2018-04-27] MEDS: POLYETHYLENE GLYCOL 3350 17 GM PKT PO SCH (08:46)
[2018-04-27] MEDS: PANTOPRAZOLE SODIUM 40 MG TAB PO SCH ×2 (08:46→19:13)
[2018-04-27] MEDS: ENOXAPARIN 40 MG/0.4 ML SYR SC SCH (08:46)
[2018-04-27] MEDS: FERROUS SULFATE 325 MG TAB PO SCH (08:46)
--- NOTE | 2018-04-27 09:32 | ASMTCMCOM ---
CM Note CM Note Notes: Dr. Fatima as patient's MDPOA signed a release for CM to send for patient's records from [place]. Patient was recently hospitalized there and if we can get a clear mental health diagnosis as well as recommendations for medications, it will help to determine if patient needs to go to [facility] initially. Jarocho who completed PASRR level 2 review states patient needs a [facility] psych placement first unless we can gather enough mental health information to show she is getting the proper treatment for her mental health issues. Jarocho feels if patient has proper mental health treatment she will be more successful in a memory care unit. Consulted with Romana Tran who also agrees more clarity is needed with the mental health picture. Release and request for records was faxed to [place]. The release is in the front of patient's medical record. CM will follow. Date Signed: 04/27/2018 09:31 AM Electronically Signed By:Angie Patel LCSW
--- NOTE | 2018-04-27 12:31 | HOSPPROG ---
Hospitalist Progress Note Assessment/Plan: 57-year-old female with PMH of reported multiple psychiatric issues, vascular dementia who was admitted for encephalopathy and failure of independent living. #Chronic progressive encephalopathy: - Unclear etiology. She does have some vascular dementia - She is unable to live independently or care for personal/medical needs - I do not think that she has capacity to make decisions at this time - MD proxy (Dr Robinson Fatima) has been appointed - CM working on clarifying psychiatric diagnoses, obtaining records from [place] - working on [facility] placement vs memory care unit and pursuing legal guardian - Patient's NOK (son Remy David) refuses to be involved - Renewed order for medical incapacity hold today #Possible lung cancer - Deferring further work up/evaluation in setting of above - Would likely be hospice appropriate, will eval once placement set up # chronic pain - not currently on narcotics per her med rec, but reported history of narcotic use # DM2 - holding metformin # HLD - lipitor # htn - not on meds, BP ok # GERD - protonix # COPD - on RA, no exacerbation # h/o nephrectomy # bipolar/anxiety/depression - cymbalta, elavil are on her med list # vascular dementia VTE prophylaxis: Lovenox Code Status: Full code Dispo: Remain inpatient, unsafe to discharge. Unclear anticipated date of discharge. Subjective: No new events or symptoms. Patient occasionally up in [place] getting water. I again informed patient that CM is working on finding her a safe place to go after this hospital stay. She seemed taken aback by this and is confused as to why her son, Remy, won't take her. I informed that we had discussed with him and this was not an option. She thinks that this is a lie. She refused to allow me to examine her. Objective: Vital Signs Temp Pulse Resp BP Pulse Ox 36.7 C 90 16 89/56 L 93 04/14/18 07:04 04/14/18 07:04 04/14/18 07:04 04/14/18 07:04 04/14/18 07:04 Laboratory Results 04/05/18 04:38 04/05/18 04:38 04/26/18 04/27/18 04/28/18 05:59 05:59 05:59 Intake Total 500 Balance 500 - Physical Exam Constitutional: no apparent distress, other (thin, frail appearing) ICD10 Worksheet Patient Problems: Problems Problem Status Onset Dementia Acute Failure to thrive in adult Acute
--- NOTE | 2018-04-27 15:33 | ASMTCMCOM ---
CM Note CM Note Notes: Contacted [place] regarding medical records we requested. Spoke with Dionna who states she will fax the records to us today. CM will follow. Date Signed: 04/27/2018 03:32 PM Electronically Signed By:Angie Patel LCSW
[2018-04-28] MEDS: metFORMIN HCL 500 MG TAB PO SCH ×2 (09:10→17:32)
[2018-04-28] MEDS: SUCRALFATE 1 GM TAB PO SCH ×4 (09:10→20:08)
[2018-04-28] MEDS: ATORVASTATIN CALCIUM 10 MG TAB PO SCH (09:11)
[2018-04-28] MEDS: PANTOPRAZOLE SODIUM 40 MG TAB PO SCH ×2 (09:11→20:08)
[2018-04-28] MEDS: FERROUS SULFATE 325 MG TAB PO SCH (09:11)
[2018-04-28] MEDS: ENOXAPARIN 40 MG/0.4 ML SYR SC SCH (09:11)
[2018-04-28] MEDS: POLYETHYLENE GLYCOL 3350 17 GM PKT PO SCH (09:11)
--- NOTE | 2018-04-28 12:59 | ASMTCMCOM ---
CM Note CM Note Notes: CM sent resent referrals to [facility] and [facility], included Level II pasrr. Referral also sent to [facility], pt has been there in the past. Pt has an MD proxy. DC Plan: SNF vs Ger[facility] Date Signed: 04/28/2018 12:58 PM Electronically Signed By:Romana Osborn RN
[2018-04-29] MEDS: SUCRALFATE 1 GM TAB PO SCH ×4 (07:36→19:52)
[2018-04-29] MEDS: ATORVASTATIN CALCIUM 10 MG TAB PO SCH (07:37)
[2018-04-29] MEDS: FERROUS SULFATE 325 MG TAB PO SCH (07:37)
[2018-04-29] MEDS: ENOXAPARIN 40 MG/0.4 ML SYR SC SCH (07:37)
[2018-04-29] MEDS: metFORMIN HCL 500 MG TAB PO SCH ×2 (07:37→19:01)
[2018-04-29] MEDS: PANTOPRAZOLE SODIUM 40 MG TAB PO SCH ×2 (07:37→19:52)
[2018-04-29] MEDS: POLYETHYLENE GLYCOL 3350 17 GM PKT PO SCH (07:37)
--- NOTE | 2018-04-29 16:43 | HOSPPROG ---
Hospitalist Progress Note Assessment/Plan: The patient is a 57-year-old female with PMH multiple psychiatric issues, vascular dementia who was admitted for encephalopathy and failure of independent living. ASSESSMENT/PLAN: Encephalopathy, chronic progressive History of vascular dementia Psychiatric disorders Iron deficiency anemia Suspected lung cancer Chronic pain Diabetes mellitus type 2- controlled w/ diet Hyperlipidemia Hypertension, controlled w/ diet GERD COPD History of nephrectomy -MD Proxy Dr. Fatima has been involved w/ the case- recommends [facility] placement. -Pursuing legal guardian. -Pt's NOK (son) refuses to be involved w/ the case. -Further workup/Tx for cancer not recommended because of progressive dementia. Pt is hospice appropriate. -Pt unable to attend to personal/medical needs and live independently. -Palliative consulted - for worsening dementia, chronic pain, suspected cancer. -Renew order for MIH - pt does not have capacity to make own medical decisions and is a danger to self. VTE prophylaxis: Lovenox Code Status: Full code Status: Inpatient for greater than 2 midnight stay. Disposition: Med surg with discharge to [facility] when pt obtains placement. ____ SUBJECTIVE: Today patient says she feels fine. No complaints. OBJECTIVE: Physical Exam: General: The patient is a thin female who is alert and in no acute distress. HEENT: normocephalic, extraocular movements intact, conjunctivae clear. Mucous membranes moist Neck: trachea midline, no visible masses. Resp: unlabored. Abd: soft and nondistended. Musculoskeletal: Normal muscle tone/bulk. Neuro: cranial nerves II XII grossly intact. Intact gross motor and sensory function. Psych: Appropriate mood and flat affect. Skin: + pallor. No petechiae. Heme/lymph: No peripheral edema at bilateral lower extremities. Objective: Vital Signs Temp Pulse Resp BP Pulse Ox 36.7 C 90 16 89/56 L 93 04/14/18 07:04 04/14/18 07:04 04/14/18 07:04 04/14/18 07:04 04/14/18 07:04 Laboratory Results 04/05/18 04:38 04/05/18 04:38 ICD10 Worksheet Patient Problems: Problems Problem Status Onset Dementia Acute Failure to thrive in adult Acute
--- NOTE | 2018-04-29 16:48 | ASMTCMCOM ---
CM Note CM Note Notes: Pt declined by [facility]. PASSR sent to [facility] who indicated that they are interested in accepting her. Per rocio, at [facility], there are concerns over pt's refusal to take medications. She will consult with her nursing home administrator and may visit pt again on Wednesday. Ayaka resent out to psychiatric facilities and SNFs. D/C Plan: TBD Date Signed: 04/29/2018 04:47 PM Electronically Signed By:Parisa Lockhart
[2018-04-30] MEDS: ATORVASTATIN CALCIUM 10 MG TAB PO SCH (08:26)
[2018-04-30] MEDS: FERROUS SULFATE 325 MG TAB PO SCH (08:26)
[2018-04-30] MEDS: SUCRALFATE 1 GM TAB PO SCH ×4 (08:26→20:52)
[2018-04-30] MEDS: metFORMIN HCL 500 MG TAB PO SCH ×2 (08:26→17:10)
[2018-04-30] MEDS: ENOXAPARIN 40 MG/0.4 ML SYR SC SCH (08:26)
[2018-04-30] MEDS: POLYETHYLENE GLYCOL 3350 17 GM PKT PO SCH (08:27)
[2018-04-30] MEDS: PANTOPRAZOLE SODIUM 40 MG TAB PO SCH ×2 (08:27→20:52)
--- NOTE | 2018-04-30 10:26 | HOSPPROG ---
Hospitalist Progress Note Assessment/Plan: The patient is a 57-year-old female with PMH multiple psychiatric issues, vascular dementia who was admitted for encephalopathy and failure of independent living. # encephalopathy secondary to multiple factors including vascular dementia and psychiatric issues. She is refusing all care at the hospital and is currently a disposition problem. * MD Proxy Dr. Fatima has been involved w/ the case- recommends [facility] placement. * Patient's son it refuses to be involved with the case * Renew medical hold if needed # suspected lung cancer. Patient not candidate for treatment given her progressive dementia. Palliative care consult id she is a hospice candidate at this point # hypertension # iron deficiency anemia # type 2 diabetes controlled with diet # GE reflux disease # COPD # history of nephrectomy VTE prophylaxis: Lovenox Code Status: Full code Subjective: Patient new to me and chart reviewed states she has pain all over but will not let me evaluate her. Refuses all vital signs. But she is alert her voice is stable and she does not look like she is in pain Objective: Vital Signs Temp Pulse Resp BP Pulse Ox 36.7 C 90 16 89/56 L 93 04/14/18 07:04 04/14/18 07:04 04/14/18 07:04 04/14/18 07:04 04/14/18 07:04 Laboratory Results 04/05/18 04:38 04/05/18 04:38 04/29/18 04/30/18 05/01/18 05:59 05:59 05:59 Intake Total 720 Balance 720 - Physical Exam Constitutional: no apparent distress, chronically ill appearing, unkempt Eyes: PERRL Ears, Nose, Mouth, Throat: moist mucous membranes Respiratory: no respiratory distress Genitourinary: No montelongo in urethra Skin: normal color Neurologic: other (Speech is fluent), No facial droop Psychiatric: agitated ICD10 Worksheet Patient Problems: Problems Problem Status Onset Dementia Acute Failure to thrive in adult Acute
--- NOTE | 2018-05-01 09:44 | HOSPPROG ---
Hospitalist Progress Note Assessment/Plan: The patient is a 57-year-old female with PMH multiple psychiatric issues, vascular dementia who was admitted for encephalopathy and failure of independent living. No new issues # encephalopathy secondary to multiple factors including vascular dementia and psychiatric issues. She is refusing all care at the hospital and is currently a disposition problem. * MD Proxy Dr. Fatima has been involved w/ the case- recommends [facility] placement. * Patient's son it refuses to be involved with the case * Renew medical hold if needed # suspected lung cancer. Patient not candidate for treatment given her progressive dementia. Palliative care consult id she is a hospice candidate at this point # hypertension # iron deficiency anemia # type 2 diabetes controlled with diet # GE reflux disease # COPD # history of nephrectomy VTE prophylaxis: Lovenox Code Status: Full code Subjective: refuses all care Objective: Vital Signs Temp Pulse Resp BP Pulse Ox 36.7 C 90 16 89/56 L 93 04/14/18 07:04 04/14/18 07:04 04/14/18 07:04 04/14/18 07:04 04/14/18 07:04 Laboratory Results 04/05/18 04:38 04/05/18 04:38 04/30/18 05/01/18 05/02/18 05:59 05:59 05:59 Intake Total 720 Balance 720 - Physical Exam Constitutional: no apparent distress, chronically ill appearing Respiratory: no respiratory distress ICD10 Worksheet Patient Problems: Problems Problem Status Onset Dementia Acute Failure to thrive in adult Acute
[2018-05-01] MEDS: metFORMIN HCL 500 MG TAB PO SCH ×2 (13:16→17:59)
[2018-05-01] MEDS: SUCRALFATE 1 GM TAB PO SCH ×4 (13:16→20:27)
[2018-05-01] MEDS: FERROUS SULFATE 325 MG TAB PO SCH (13:17)
[2018-05-01] MEDS: ENOXAPARIN 40 MG/0.4 ML SYR SC SCH (13:17)
[2018-05-01] MEDS: ATORVASTATIN CALCIUM 10 MG TAB PO SCH (13:17)
[2018-05-01] MEDS: PANTOPRAZOLE SODIUM 40 MG TAB PO SCH ×2 (13:18→20:27)
[2018-05-01] MEDS: POLYETHYLENE GLYCOL 3350 17 GM PKT PO SCH (13:18)
--- NOTE | 2018-05-01 14:21 | ASMTCMCOM ---
CM Note CM Note Notes: CM spoke with RN, patient continues to refuse services. Per notes, Liudmila Pereyra to follow up on patient placement tomorrow. CM called Kiki with [facility], she is unable to find the referral when we spoke but will look into it. CM sent reply vs. [employer]. CM to follow. D/C Plan: Pending acceptance to SNF, currently waiting on [facility] vs. [facility]. Date Signed: 05/01/2018 02:21 PM Electronically Signed By:Frieda Velasquez
[2018-05-02] MEDS: SUCRALFATE 1 GM TAB PO SCH ×4 (04:57→20:02)
[2018-05-02] MEDS: ATORVASTATIN CALCIUM 10 MG TAB PO SCH (09:07)
[2018-05-02] MEDS: PANTOPRAZOLE SODIUM 40 MG TAB PO SCH ×2 (09:08→20:02)
[2018-05-02] MEDS: ENOXAPARIN 40 MG/0.4 ML SYR SC SCH (09:08)
[2018-05-02] MEDS: POLYETHYLENE GLYCOL 3350 17 GM PKT PO SCH (09:08)
[2018-05-02] MEDS: FERROUS SULFATE 325 MG TAB PO SCH (09:08)
[2018-05-02] MEDS: metFORMIN HCL 500 MG TAB PO SCH ×2 (09:08→17:22)
--- NOTE | 2018-05-02 17:00 | ASMTCMCOM ---
CM Note CM Note Notes: Spoke with Bruno and she states patient is not accepted at [facility]. [facility] states [facility] may still be considering. Contacted Louis in admissions ([phone]) and left him a message to call us back regarding her admission status. Patient continues to refuse services. Placement continues to be complicated. CM will follow. Date Signed: 05/02/2018 04:59 PM Electronically Signed By:Angie Patel LCSW
--- NOTE | 2018-05-02 17:35 | HOSPPROG ---
Hospitalist Progress Note Assessment/Plan: Subjective Follow-up on suspected lung cancer and encephalopathy. No acute events overnight. Patient did not have any questions for me today but was pleasant at the time of my evaluation. Objective Vital signs have been declined Exam General-awake alert conversant no acute distress Heart-regular rate and rhythm no murmurs Lungs-Clear to auscultation with normal respiratory effort Abdomen-soft nontender nondistended normal bowel sounds -no Cox catheter in place Extremities-no significant pitting edema or calf pain with palpation Skin-no concerning skin rashes noted Assessment and plan Encephalopathy-patient with suspected dementia. Placement his primary concern currently. Patient's family are not involved with her care. She has a designated power of supervising librarian at the present time. Lung cancer-suspected based upon chest CT upon admission. Not felt to be a candidate for treatment currently considering her advanced dementia. Hypertension-history of. No current medical therapy. Continue to monitor. COPD-appears stable. Diabetes mellitus type 2-metformin. Esophageal reflux-ppi. DVT prophylaxis-Lovenox. Disposition-case management looking at placement which is complex in light of her dementia and lack of family involvement. Objective: Vital Signs Temp Pulse Resp BP Pulse Ox 36.7 C 90 16 89/56 L 93 04/14/18 07:04 04/14/18 07:04 04/14/18 07:04 04/14/18 07:04 04/14/18 07:04 Laboratory Results 04/05/18 04:38 04/05/18 04:38 ICD10 Worksheet Patient Problems: Problems Problem Status Onset Dementia Acute Failure to thrive in adult Acute
[2018-05-03] MEDS: SUCRALFATE 1 GM TAB PO SCH ×4 (07:27→19:57)
[2018-05-03] MEDS: ENOXAPARIN 40 MG/0.4 ML SYR SC SCH (08:39)
[2018-05-03] MEDS: FERROUS SULFATE 325 MG TAB PO SCH (08:39)
[2018-05-03] MEDS: metFORMIN HCL 500 MG TAB PO SCH ×2 (08:39→18:15)
[2018-05-03] MEDS: ATORVASTATIN CALCIUM 10 MG TAB PO SCH (08:39)
[2018-05-03] MEDS: PANTOPRAZOLE SODIUM 40 MG TAB PO SCH ×2 (08:39→19:57)
[2018-05-03] MEDS: POLYETHYLENE GLYCOL 3350 17 GM PKT PO SCH (08:39)
--- NOTE | 2018-05-03 09:30 | HOSPPROG ---
Hospitalist Progress Note Assessment/Plan: The patient is a 57-year-old female with PMH multiple psychiatric issues, vascular dementia who was admitted for encephalopathy and failure of independent living. No new issues # encephalopathy secondary to multiple factors including vascular dementia and psychiatric issues. She is refusing all care at the hospital and is currently a disposition problem. * MD Proxy Dr. Fatima has been involved w/ the case- recommends [facility] placement. * Patient's son it refuses to be involved with the case * Renew medical hold if needed # suspected lung cancer. Patient not candidate for treatment given her progressive dementia. Palliative care consult id she is a hospice candidate at this point # hypertension # iron deficiency anemia # type 2 diabetes controlled with diet # GE reflux disease # COPD # history of nephrectomy VTE prophylaxis: Lovenox Code Status: Full code Subjective: still arnery Objective: Vital Signs Temp Pulse Resp BP Pulse Ox 36.7 C 90 16 89/56 L 93 04/14/18 07:04 04/14/18 07:04 04/14/18 07:04 04/14/18 07:04 04/14/18 07:04 Laboratory Results 04/05/18 04:38 04/05/18 04:38 - Physical Exam Constitutional: no apparent distress Respiratory: no respiratory distress Psychiatric: agitated ICD10 Worksheet Patient Problems: Problems Problem Status Onset Dementia Acute Failure to thrive in adult Acute
--- NOTE | 2018-05-03 16:10 | ASMTCMCOM ---
CM Note CM Note Notes: Dr. Bustos will complete a psychiatric evaluation to clarify the mental health issues of patient. Contacted [facility] in [place] and left a message about patient placement with them and whether they can accept. ([phone])Liudmila Pereyra needs patient to be compliant with her medications for acceptance.CM will follow. Date Signed: 05/03/2018 04:09 PM Electronically Signed By:Angie Patel LCSW
[2018-05-04] MEDS: SUCRALFATE 1 GM TAB PO SCH ×4 (07:05→22:17)
[2018-05-04] MEDS: metFORMIN HCL 500 MG TAB PO SCH ×2 (07:07→17:04)
[2018-05-04] MEDS: ATORVASTATIN CALCIUM 10 MG TAB PO SCH (08:04)
[2018-05-04] MEDS: ENOXAPARIN 40 MG/0.4 ML SYR SC SCH (08:04)
[2018-05-04] MEDS: POLYETHYLENE GLYCOL 3350 17 GM PKT PO SCH (08:04)
[2018-05-04] MEDS: PANTOPRAZOLE SODIUM 40 MG TAB PO SCH ×2 (08:04→22:17)
[2018-05-04] MEDS: FERROUS SULFATE 325 MG TAB PO SCH (08:04)
--- NOTE | 2018-05-04 08:43 | HOSPPROG ---
Hospitalist Progress Note Assessment/Plan: Patient new to my care. I personally reviewed TRACIE. She has had 10 ER/ hospitalizations since 10/2017. h/o CVA. CTH 01/15 with significant atrophy. Prior to that, imaging suggestive of frontotemporal dementia #Chronic metabolic encephalopathy: vascular dementia per EMR. -TSH, B12 WNL. Moderate atrophy on CTH -on medical hold -Dr. Bustos to perform MOCA #Spiculated lung mass: concern for malignancy with adenopathy. Patient not candidate for treatment given her progressive dementia. P #Hypertension #Iron deficiency anemia: PO iron # Type 2 diabetes: diet-controlled #GERD: PPI # COPD # history of nephrectomy Subjective: no acute events Objective: Vital Signs Temp Pulse Resp BP Pulse Ox 36.7 C 90 16 89/56 L 93 04/14/18 07:04 04/14/18 07:04 04/14/18 07:04 04/14/18 07:04 04/14/18 07:04 Laboratory Results 04/05/18 04:38 04/05/18 04:38 Physical Exam: She wouldn't allow me to perform exam ICD10 Worksheet Patient Problems: Problems Problem Status Onset Dementia Acute Failure to thrive in adult Acute
[2018-05-05] MEDS: SUCRALFATE 1 GM TAB PO SCH ×4 (06:47→20:05)
[2018-05-05] MEDS: ATORVASTATIN CALCIUM 10 MG TAB PO SCH (07:45)
[2018-05-05] MEDS: metFORMIN HCL 500 MG TAB PO SCH ×2 (07:45→17:14)
[2018-05-05] MEDS: PANTOPRAZOLE SODIUM 40 MG TAB PO SCH ×2 (07:46→20:05)
[2018-05-05] MEDS: POLYETHYLENE GLYCOL 3350 17 GM PKT PO SCH (07:46)
[2018-05-05] MEDS: FERROUS SULFATE 325 MG TAB PO SCH (07:46)
[2018-05-05] MEDS: ENOXAPARIN 40 MG/0.4 ML SYR SC SCH (07:46)
--- NOTE | 2018-05-05 10:35 | HOSPPROG ---
Hospitalist Progress Note Assessment/Plan: I personally reviewed TRACIE. She has had 10 ER/hospitalizations since 2017. h/o CVA. CTH 01/15 with significant atrophy. Prior to that, imaging suggestive of frontotemporal dementia #Chronic metabolic encephalopathy: vascular dementia per EMR. -TSH, B12 WNL HIV, RPR negative. Moderate atrophy on CTH -on medical hold #Vascular dementia: moderate atrophy and suggestive of frontotemporal dementia based on prior imaging. Would benefit from safe, supervised unit #Spiculated lung mass: concern for malignancy with adenopathy. Patient not candidate for treatment given her progressive dementia. #Hypertension: not on meds currently #Bipolar I disorder: reviewed OSH records. Admitted to [facility] 01/15 with paranoia and decompensated bipolar -Dr. Bustos evaluated earlier in stay and stopped Elavil, Duloxetine #Iron deficiency anemia: PO iron # Type 2 diabetes: diet-controlled #GERD: PPI # COPD #history of nephrectomy #Goals: I spoke with her appointed proxy, Dr. Fatima. Determined earlier with [facility] that cancer evaluation would not be pursued and Palliative care arranged outpatient. Subjective: denies pain. No complaints past 24-hrs Objective: Vital Signs Temp Pulse Resp BP Pulse Ox 36.7 C 90 16 89/56 L 93 04/14/18 07:04 04/14/18 07:04 04/14/18 07:04 04/14/18 07:04 04/14/18 07:04 Laboratory Results 04/05/18 04:38 04/05/18 04:38 - Time Spent With Patient Time Spent with Patient: greater than 35 minutes Time Spent with Patient: Greater than 35 minutes spent on this patients care, greater than 50% of time spent counseling, educating, and coordinating care regarding the above mentioned plan. Physical Exam: would not allow full exam - Physical Exam Constitutional: no apparent distress Eyes: PERRL Ears, Nose, Mouth, Throat: hearing normal Genitourinary: No montelongo in urethra Psychiatric: flat affect ICD10 Worksheet Patient Problems: Problems Problem Status Onset Dementia Acute Failure to thrive in adult Acute
--- NOTE | 2018-05-05 11:28 | ASMTCMCOM ---
NATALIA Note NATALIA Note Notes: Received call from [facility] [phone] at [facility]. They are interested in pt, they have a secured unit and and unsecured unit. They can take take her with a primary diagnosis of Dementia but do need a guardian unless the MD proxy can be available for signing pt into the community and be available for decisions. CM notified and Leilani Mendoza about next steps. DC Plan: Memory Care Unit/ TBD Date Signed: 05/05/2018 11:27 AM Electronically Signed By:Romana Osborn RN
[2018-05-06] MEDS: ENOXAPARIN 40 MG/0.4 ML SYR SC SCH (10:38)
[2018-05-06] MEDS: SUCRALFATE 1 GM TAB PO SCH ×4 (10:38→20:42)
[2018-05-06] MEDS: metFORMIN HCL 500 MG TAB PO SCH ×2 (10:38→18:06)
[2018-05-06] MEDS: FERROUS SULFATE 325 MG TAB PO SCH (10:38)
[2018-05-06] MEDS: POLYETHYLENE GLYCOL 3350 17 GM PKT PO SCH (10:38)
[2018-05-06] MEDS: PANTOPRAZOLE SODIUM 40 MG TAB PO SCH ×2 (10:38→20:42)
[2018-05-06] MEDS: ATORVASTATIN CALCIUM 10 MG TAB PO SCH (10:38)
--- NOTE | 2018-05-06 15:54 | HOSPPROG ---
Hospitalist Progress Note Assessment/Plan: I personally reviewed TRACIE. She has had 10 ER/hospitalizations since 2017. h/o CVA. CTH 01/15 with significant atrophy. Prior to that, imaging suggestive of frontotemporal dementia #Chronic metabolic encephalopathy: vascular dementia per imaging here and prior OSH records -TSH, B12 WNL HIV, RPR negative. Moderate atrophy on CTH -on medical hold #Vascular dementia: moderate atrophy and suggestive of frontotemporal dementia based on prior imaging. Would benefit from safe, supervised unit #Spiculated lung mass: concern for malignancy with adenopathy. Patient not candidate for treatment given her progressive dementia. #Hypertension: not on meds currently #Bipolar I disorder: reviewed OSH records. Admitted to [facility] 01/15 with paranoia and decompensated bipolar -Dr. Bustos evaluated earlier in stay and stopped Elavil, Duloxetine #Iron deficiency anemia: PO iron # Type 2 diabetes: diet-controlled #GERD: PPI # COPD #history of nephrectomy #Goals: I spoke with her appointed proxy, Dr. Fatima. Determined earlier with [facility] that cancer evaluation would not be pursued and Palliative care arranged outpatient. #disp: awaiting place. Pt cannot care for herself and high-risk for subsequent harm Subjective: refusing exam and vitals Objective: Vital Signs Temp Pulse Resp BP Pulse Ox 36.7 C 90 16 89/56 L 93 04/14/18 07:04 04/14/18 07:04 04/14/18 07:04 04/14/18 07:04 04/14/18 07:04 Laboratory Results 04/05/18 04:38 04/05/18 04:38 - Time Spent With Patient Time Spent with Patient: greater than 25 minutes Time Spent with Patient: Greater than 25 minutes spent on this patients care, greater than 50% of time spent counseling, educating, and coordinating care regarding the above mentioned plan. Physical Exam: refusing full exam - Physical Exam Constitutional: no apparent distress Eyes: PERRL Genitourinary: No montelongo in urethra Psychiatric: depressed, flat affect ICD10 Worksheet Patient Problems: Problems Problem Status Onset Dementia Acute Failure to thrive in adult Acute
--- NOTE | 2018-05-06 16:17 | ASMTCMCOM ---
CM Note CM Note Notes: Left several messages for Cristina at [facility]. proxy is willing to sign for pt to be at their facility. 1) Can they send the paperwork here for him to sign? 2) can they start guardianship? DC Plan: TBD Date Signed: 05/06/2018 04:16 PM Electronically Signed By:Romana Osborn RN
[2018-05-07] MEDS: SUCRALFATE 1 GM TAB PO SCH ×4 (08:36→19:40)
[2018-05-07] MEDS: metFORMIN HCL 500 MG TAB PO SCH ×2 (09:15→17:13)
[2018-05-07] MEDS: PANTOPRAZOLE SODIUM 40 MG TAB PO SCH ×2 (10:50→19:40)
[2018-05-07] MEDS: POLYETHYLENE GLYCOL 3350 17 GM PKT PO SCH (10:50)
[2018-05-07] MEDS: ENOXAPARIN 40 MG/0.4 ML SYR SC SCH (10:50)
[2018-05-07] MEDS: FERROUS SULFATE 325 MG TAB PO SCH (10:50)
[2018-05-07] MEDS: ATORVASTATIN CALCIUM 10 MG TAB PO SCH (10:50)
--- NOTE | 2018-05-07 11:30 | NEUROPROG ---
Assessment: [id number] - Neurology Consult: - CC: Dr. Yamilka Salguero consulted neurology for possible vascular dementia. Results placed in EMR for her review. - HPI: Pt admitted to [facility] on 04/03/18 for inability to care for herself and confusion. It was felt this has been from a combination of vascular dementia and underlying psychiatric disease. Review of Dr. Yamilka Salgueros note on 05/06/18 finds pt had a stroke in the past. Head CT on 04/03/18 showed atrophy which is unusual given the patients relatively young age. Pt does have a spiculated lung mass concerning for malignancy vs adenopathy but was not felt to be a candidate for treatment based on dementia. I initially saw the patient on . She reported she had a stroke in 2017 and had a full workup at that time to include cardiac U/S, TTE, and telemetry monitoring which was unremarkable. Pt declined aspirin for stroke prevention. She was not interested in discussing her medical condition with me and declined a neurologic exam. - PMHx: HLD, DM, bipolar d/o, anxiety, vascular dementia, sleep apnea, Olliers disease, GERD, COPD, chronic pain - SHx: +tobacco FHx: NC - ROS: Pt denied acute fever, total vision loss, active severe chest pain, respiratory failure, total body severe rash, total bowel/bladder incontinence, psychosis, active seizures, or active bleeding - O: VS reviewed General: Alert Eyes: Fundoscopic exam not able to visualize optic disks CV: pt declined Lungs: pt declined Neuro: - Mental: . Oriented not tested as pt declined testing . concentration appears normal . speech fluency/comprehension normal . memory appears normal but limited testing . fund of knowledge appear intact - Cranial Nerves: . II: vision intact but pt declined testing . III/IV/: EOM appeared conjugate . V: facial sensation not tested, pt declined . VII: face symmetric to speaking . VIII: hearing intact to conversation . IX/X: pt declined . XI: pt declined . XII: pt declined - Motor: . Tone: pt declined . Strength: pt declined - Reflexes: pt declined - Sensory: pt declined - Coord: pt declined - Gait: pt declined - Labs: 04/03/18- TSH wnl 04/04/18- B12 509 04/05/18- Na 139 04/06/18- Syphilis IgG Ab neg, HIV neg - Rads: 04/03/18- Head CT wo: moderate atrophy, no subdural hematoma, mass, or acute process (I personally visualized the image on 05/06/18) - Assessment: 1. Dementia: Pt with significant cognitive and psychiatric issues which impair her per review of medical records. Given reported history of prior stroke and atrophy seen on head CT on 04/03/18 makes me believe that vascular dementia or another form of dementia is present. Treatment for dementia is symptomatic to include any associated psychiatric symptoms. - 2. Reported history of stroke: Pt reported she had a stroke in 2017 and had a full workup at that time to include cardiac U/S, TTE, and telemetry monitoring which was unremarkable. Pt declined aspirin for stroke prevention. - 3. Spirculated lung mass concerning for adenopathy vs malignancy: Pt not felt to be candidate for treatment due her dementia. - Plan: - Pt declined any formal neurology examination or any therapy from a neurology standpoint, neurology will sign off but will be happy to become reinvolved if needed or if pt wishes to pursue formal neurologic exam and consider treatment for dementia Objective: Vital Signs Temp Pulse Resp BP Pulse Ox 36.7 C 90 16 89/56 L 93 04/14/18 07:04 04/14/18 07:04 04/14/18 07:04 04/14/18 07:04 04/14/18 07:04 Laboratory Results 04/05/18 04:38 04/05/18 04:38 Allergies/Adverse Reactions: ibuprofen Allergy (Verified 04/03/18 12:27)
--- NOTE | 2018-05-07 16:28 | HOSPPROG ---
Hospitalist Progress Note Assessment/Plan: I personally reviewed TRACIE. She has had 10 ER/hospitalizations since 2017. h/o CVA. CTH 01/15 with significant atrophy. Prior to that, imaging suggestive of frontotemporal dementia #Chronic metabolic encephalopathy: vascular dementia per imaging here and prior OSH records -TSH, B12 WNL HIV, RPR negative. Moderate atrophy on CTH -on medical hold #Vascular dementia: Would benefit from safe, supervised unit -Neurology evaluated and agree that moderated atrophy and h/o CVA suggest vascular or other type of dementia #Spiculated lung mass: concern for malignancy with adenopathy. Patient not candidate for treatment given her progressive dementia. #Hypertension: not on meds currently. Refusing BP checks #Bipolar I disorder: reviewed OSH records. Admitted to [facility] 01/15 with paranoia and decompensated bipolar -Dr. Bustos evaluated earlier in stay and stopped Elavil, Duloxetine #Iron deficiency anemia: PO iron # Type 2 diabetes: diet-controlled #GERD: PPI # COPD #history of nephrectomy #disp: awaiting place. Pt cannot care for herself and high-risk for subsequent harm Subjective: delcines BP, exam Objective: Vital Signs Temp Pulse Resp BP Pulse Ox 36.7 C 90 16 89/56 L 93 04/14/18 07:04 04/14/18 07:04 04/14/18 07:04 04/14/18 07:04 04/14/18 07:04 Laboratory Results 04/05/18 04:38 04/05/18 04:38 - Time Spent With Patient Time Spent with Patient: greater than 25 minutes Time Spent with Patient: Greater than 25 minutes spent on this patients care, greater than 50% of time spent counseling, educating, and coordinating care regarding the above mentioned plan. - Physical Exam Constitutional: no apparent distress Ears, Nose, Mouth, Throat: hearing normal Genitourinary: other (no montelongo) Neurologic: facial droop Psychiatric: flat affect, poor insight, poor judgement, poor memory ICD10 Worksheet Patient Problems: Problems Problem Status Onset Dementia Acute Failure to thrive in adult Acute
[2018-05-08] MEDS: SUCRALFATE 1 GM TAB PO SCH ×4 (07:20→21:32)
[2018-05-08] MEDS: POLYETHYLENE GLYCOL 3350 17 GM PKT PO SCH (08:21)
[2018-05-08] MEDS: ENOXAPARIN 40 MG/0.4 ML SYR SC SCH (08:21)
[2018-05-08] MEDS: metFORMIN HCL 500 MG TAB PO SCH ×2 (08:21→16:44)
[2018-05-08] MEDS: ATORVASTATIN CALCIUM 10 MG TAB PO SCH (08:21)
[2018-05-08] MEDS: PANTOPRAZOLE SODIUM 40 MG TAB PO SCH ×2 (08:21→21:32)
[2018-05-08] MEDS: FERROUS SULFATE 325 MG TAB PO SCH (08:21)
--- NOTE | 2018-05-08 13:40 | HOSPPROG ---
Hospitalist Progress Note Assessment/Plan: I personally reviewed TRACIE. She has had 10 ER/hospitalizations since 2017. h/o CVA. CTH 01/15 with significant atrophy. Prior to that, imaging suggestive of frontotemporal dementia #Chronic metabolic encephalopathy: vascular dementia per imaging here and prior OSH records -TSH, B12 WNL HIV, RPR negative. Moderate atrophy on CTH -on medical hold #Vascular dementia: -Neurology evaluated and agree that moderated atrophy and h/o CVA suggest vascular or other type of dementia -Would benefit from safe, supervised unit #Spiculated lung mass: concern for malignancy with adenopathy. Patient not candidate for treatment given her progressive dementia. #Hypertension: not on meds currently. Refusing BP checks #Bipolar I disorder: reviewed OSH records. Admitted to [facility] 01/15 with paranoia and decompensated bipolar -Dr. Bustos evaluated earlier in stay and stopped Elavil, Duloxetine #Iron deficiency anemia: PO iron # Type 2 diabetes: diet-controlled #GERD: PPI # COPD #history of nephrectomy #disp: Medically stable; can DC once placement arranged. Pt cannot care for herself and high-risk for subsequent harm Subjective: Does not have questions. Declines exam Objective: Vital Signs Temp Pulse Resp BP Pulse Ox 36.7 C 90 16 89/56 L 93 04/14/18 07:04 04/14/18 07:04 04/14/18 07:04 04/14/18 07:04 04/14/18 07:04 Laboratory Results 04/05/18 04:38 04/05/18 04:38 - Time Spent With Patient Time Spent with Patient: greater than 25 minutes Time Spent with Patient: Greater than 25 minutes spent on this patients care, greater than 50% of time spent counseling, educating, and coordinating care regarding the above mentioned plan. - Physical Exam Constitutional: no apparent distress Ears, Nose, Mouth, Throat: moist mucous membranes Genitourinary: No montelongo in urethra Neurologic: CN II-XII Intact Psychiatric: flat affect ICD10 Worksheet Patient Problems: Problems Problem Status Onset Dementia Acute Failure to thrive in adult Acute
[2018-05-09] MEDS: SUCRALFATE 1 GM TAB PO SCH ×4 (07:32→21:42)
[2018-05-09] MEDS: metFORMIN HCL 500 MG TAB PO SCH ×2 (07:32→17:48)
[2018-05-09] MEDS: ATORVASTATIN CALCIUM 10 MG TAB PO SCH (10:00)
[2018-05-09] MEDS: ENOXAPARIN 40 MG/0.4 ML SYR SC SCH (10:01)
[2018-05-09] MEDS: PANTOPRAZOLE SODIUM 40 MG TAB PO SCH ×2 (10:01→21:42)
[2018-05-09] MEDS: POLYETHYLENE GLYCOL 3350 17 GM PKT PO SCH (10:01)
[2018-05-09] MEDS: FERROUS SULFATE 325 MG TAB PO SCH (10:01)
--- NOTE | 2018-05-09 14:09 | ASMTCMCOM ---
NATALIA Note NATALIA Note Notes: Left a message for Cristina at [facility]. (made 5 calls today to her) Awaiting her return call. Spoke with Sue at [facility] and she is going to review patient's case. A new referral was sent to her as she had closed the first one that was made. A new ULTC 100 has been completed and faxed to James at [facility]. We received notice they had closed her case. CM will follow. Date Signed: 05/09/2018 02:08 PM Electronically Signed By:Angie Patel LCSW
--- NOTE | 2018-05-09 14:42 | ASMTCMCOM ---
CM Note CM Note Notes: Spoke with Dr. Robinson Fatima about the need for his signiture on the new ULTC 100 being submitted. He will stop by tomorrow to sign. Faxed the copy today to James so he can get started and will fax page [address] Fatima's signiture tomorrow so James has the signed copy. Dr. Fatima states he is willing to sign for the patient to go to a facility but does not want to continue proxy responsibilities once she has left the hospital. He prefers to have the SNF pursue guardianship and/or medical proxy for patient once she has moved to the SNF. Dr. Fatima's number [phone]. CM will follow. Date Signed: 05/09/2018 02:42 PM Electronically Signed By:Angie Patel LCSW
--- NOTE | 2018-05-09 16:18 | HOSPPROG ---
Hospitalist Progress Note Assessment/Plan: Chronic metabolic encephalopathy: vascular dementia per imaging here and prior OSH records -TSH, B12 WNL HIV, RPR negative. Moderate atrophy on CTH -on medical hold Vascular dementia: -Neurology evaluated and agree that moderated atrophy and h/o CVA suggest vascular or other type of dementia -Would benefit from safe, supervised unit Spiculated lung mass: concern for malignancy with adenopathy. Patient not candidate for treatment given her progressive dementia. Hypertension: not on meds currently. Refusing BP checks Bipolar I disorder: reviewed OSH records. Admitted to [facility] 01/15 with paranoia and decompensated bipolar -Dr. Bustos evaluated earlier in stay and stopped Elavil, Duloxetine Iron deficiency anemia: PO iron Type 2 diabetes: diet-controlled gERD: PPI COPD history of nephrectomy disp: Medically stable; can DC once placement arranged. Pt cannot care for herself and high-risk for subsequent harm, CM working with snf for placement. on medical hold. patient refusing examination Objective: Vital Signs Temp Pulse Resp BP Pulse Ox 36.7 C 90 16 89/56 L 93 04/14/18 07:04 04/14/18 07:04 04/14/18 07:04 04/14/18 07:04 04/14/18 07:04 Laboratory Results 04/05/18 04:38 04/05/18 04:38 - Physical Exam Constitutional: no apparent distress, appears nourished, not in pain Psychiatric: agitated ICD10 Worksheet Patient Problems: Problems Problem Status Onset Dementia Acute Failure to thrive in adult Acute
--- NOTE | 2018-05-09 17:17 | HOSPPROG ---
Hospitalist Progress Note Assessment/Plan: Chronic metabolic encephalopathy: vascular dementia per imaging here and prior OSH records -TSH, B12 WNL HIV, RPR negative. Moderate atrophy on CTH -on medical hold Vascular dementia: -Neurology evaluated and agree that moderated atrophy and h/o CVA suggest vascular or other type of dementia -Would benefit from safe, supervised unit Spiculated lung mass: concern for malignancy with adenopathy. Patient not candidate for treatment given her progressive dementia. Hypertension: not on meds currently. Refusing BP checks Bipolar I disorder: reviewed OSH records. Admitted to [facility] 01/15 with paranoia and decompensated bipolar -Dr. Bustos evaluated earlier in stay and stopped Elavil, Duloxetine Iron deficiency anemia: PO iron Type 2 diabetes: diet-controlled gERD: PPI COPD- stable. history of nephrectomy disp: Medically stable; can DC once placement arranged. Pt cannot care for herself and high-risk for subsequent harm, CM notes that SNF may have to pursue guardianship once she goes. Objective: Vital Signs Temp Pulse Resp BP Pulse Ox 36.7 C 90 16 89/56 L 93 04/14/18 07:04 04/14/18 07:04 04/14/18 07:04 04/14/18 07:04 04/14/18 07:04 Laboratory Results 04/05/18 04:38 04/05/18 04:38 ICD10 Worksheet Patient Problems: Problems Problem Status Onset Dementia Acute Failure to thrive in adult Acute
--- NOTE | 2018-05-10 14:59 | HOSPPROG ---
Hospitalist Progress Note Assessment/Plan: Chronic metabolic encephalopathy: vascular dementia per imaging here and prior OSH records. chart extensively reviewed, and case discussed with CM and psych. -TSH, B12 WNL HIV, RPR negative. Moderate atrophy on CTH -on medical hold Vascular dementia: -Neurology evaluated and agree that moderated atrophy and h/o CVA suggest vascular or other type of dementia -Would benefit from safe, supervised unit Spiculated lung mass: concern for malignancy with adenopathy. Patient not candidate for treatment given her progressive dementia. Hypertension: not on meds currently. Refusing BP checks Bipolar I disorder: reviewed OSH records. Admitted to [facility] 01/15 with paranoia and decompensated bipolar -Dr. Bustos evaluated earlier in stay and stopped Elavil, Duloxetine -patient with aggressive behavior and refusing any care. Psych has been re- consulted to evaluate patient and consider possible mood stabilizers. Iron deficiency anemia: PO iron Type 2 diabetes: diet-controlled GERD: PPI COPD- stable, not requiring oxygen and refusing medications. history of nephrectomy disp: struggling with placement issues as patient is aggressive towards nursing and has no guardian. CM trying to see about a behavioral unit. Dispo pending Over 35 minutes spent on direct care of this patient. Objective: Vital Signs Temp Pulse Resp BP Pulse Ox 36.7 C 90 16 89/56 L 93 04/14/18 07:04 04/14/18 07:04 04/14/18 07:04 04/14/18 07:04 04/14/18 07:04 Laboratory Results 04/05/18 04:38 04/05/18 04:38 - Physical Exam Constitutional: no apparent distress, appears nourished, not in pain Psychiatric: interacting appropriately, not anxious, not encephalopathic, thought process linear ICD10 Worksheet Patient Problems: Problems Problem Status Onset Dementia Acute Failure to thrive in adult Acute
[2018-05-10] MEDS: SUCRALFATE 1 GM TAB PO SCH ×2 (20:25→20:26)
[2018-05-10] MEDS: metFORMIN HCL 500 MG TAB PO SCH (20:26)
[2018-05-10] MEDS: ATORVASTATIN CALCIUM 10 MG TAB PO SCH (20:26)
[2018-05-10] MEDS: ENOXAPARIN 40 MG/0.4 ML SYR SC SCH (20:26)
[2018-05-10] MEDS: FERROUS SULFATE 325 MG TAB PO SCH (20:27)
[2018-05-10] MEDS: POLYETHYLENE GLYCOL 3350 17 GM PKT PO SCH (20:27)
[2018-05-10] MEDS: PANTOPRAZOLE SODIUM 40 MG TAB PO SCH (20:27)
[2018-05-11] MEDS: SUCRALFATE 1 GM TAB PO SCH ×2 (06:43→19:23)
[2018-05-11] MEDS: ENOXAPARIN 40 MG/0.4 ML SYR SC SCH (08:57)
[2018-05-11] MEDS: ATORVASTATIN CALCIUM 10 MG TAB PO SCH (08:57)
[2018-05-11] MEDS: metFORMIN HCL 500 MG TAB PO SCH ×2 (08:58→19:22)
[2018-05-11] MEDS: FERROUS SULFATE 325 MG TAB PO SCH (08:58)
[2018-05-11] MEDS: PANTOPRAZOLE SODIUM 40 MG TAB PO SCH ×2 (08:58→19:23)
[2018-05-11] MEDS: POLYETHYLENE GLYCOL 3350 17 GM PKT PO SCH (08:58)
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
--- NOTE | 2018-05-11 16:42 | HOSPPROG ---
Hospitalist Progress Note Assessment/Plan: Chronic metabolic encephalopathy: vascular dementia per imaging here and prior OSH records. chart extensively reviewed, and case discussed with CM and psych. psych consulted. case discussed with son and psychiatry. patient with long standing hx of drug abuse, family hx of dementia. -TSH, B12 WNL HIV, RPR negative. Moderate atrophy on CTH -on medical hold Vascular dementia: -Neurology evaluated and agree that moderated atrophy and h/o CVA suggest vascular or other type of dementia -Would benefit from safe, supervised unit Spiculated lung mass: concern for malignancy with adenopathy. Patient not candidate for treatment given her progressive dementia. patient has history of Ollier disease. Hypertension: not on meds currently. Refusing BP checks Bipolar I disorder: reviewed OSH records. Admitted to [facility] 01/15 with paranoia and decompensated bipolar -Dr. Bustos evaluated earlier in stay and stopped Elavil, Duloxetine -patient with aggressive behavior and refusing any care. Psych has been re- consulted to evaluate patient and consider possible mood stabilizers. Iron deficiency anemia: PO iron Type 2 diabetes: diet-controlled GERD: PPI COPD- stable, not requiring oxygen and refusing medications. history of nephrectomy disp: current plan is to try and get patient to a locked inpatient SNF. sister willing to be proxy and will file for guardianship. dispo pending. Over 35 minutes spent on direct care of this patient. Objective: Vital Signs Temp Pulse Resp BP Pulse Ox 36.7 C 90 16 89/56 L 93 04/14/18 07:04 04/14/18 07:04 04/14/18 07:04 04/14/18 07:04 04/14/18 07:04 Laboratory Results 04/05/18 04:38 04/05/18 04:38 - Time Spent With Patient Time Spent with Patient: greater than 35 minutes Time Spent with Patient: Greater than 35 minutes spent on this patients care, greater than 50% of time spent counseling, educating, and coordinating care regarding the above mentioned plan. - Physical Exam Constitutional: no apparent distress, appears nourished, not in pain Psychiatric: agitated (patient refuses examination), poor insight, poor judgement, poor memory ICD10 Worksheet Patient Problems: Problems Problem Status Onset Dementia Acute Failure to thrive in adult Acute
--- NOTE | 2018-05-12 13:46 | SOAPPROG ---
SOLAY Progress Note Assessment/Plan: Psychiatry MD follow-up 05/12/18 12:53 LATE ENTRY; Attempted to interview patient one day last week on 05/04, and pt refused interview. Showed her the MOCA, she said she's seen that before and doesn't do them. Again denied any SI or depression or psychiatric history. She denied any physical problems. Not able to state why she was in the hospital. Expressed frustration that her phone did not call out of the hospital, as her son's name/# were on board but whenever she called, call did not go through. Asked me to try, and the number was not a working number. Informed patient that it seemed son had his phone disconnected, and with this suggestion she became acutely irate and yelled for me to get out. Per staff, pt eating meals, sleeping, watching TV refusing any medical tests or interventions. Not even really asking to leave unit or hospital. Attempted to interview patient again today, with RN and CM Susan Gilmore present, hoping to inform her that returning to son is not an option and if we could have her participate in dispo planning, especially since otherwise refusing any treatment in hospital. Pt only became angry and yelled for all to leave the room. With attempts at further engagement, and informing if she couldn't participate in decisions someone else will be making decisions for her. She again yelled for all to leave, then threw a closed milk carton at MD. Limits set on this behavior by CM and pt then angrily threw a 2nd milk carton at CM. Interview was terminated at this time. Phone call to son Constantine who indicates mother left him at age 14. He states he has had essentially no contact with her until he returned from [place]. He states he found her in [place], [place], and. Reluctantly stated he was banned from returning from [place] unless he could prove hardship, and mother had a medical condition (a bone disease requiring several hip/knee replacements) but with additional mental health diagnosis this would be easier. Indicated they had to find someone to give her a MH dx. So patient ended up getting a psychiatric diagnosis of Bipolar/szp in 2011. Reportedly without formal psychiatric dx prior to 2011, altho long history of being on "heavy pain medications" with long hx of narcotic addiction, additionally has had some strokes, and "she seemed to me like she had dementia for a long time." Son states pt had been with [facility] in [place], with a senior case manager and home care, living in [address] for years, but every time son tried to set her up with assisted living, she'd decline b/c didn't want her disability $ used for this. Most of her hospitalizations have been at [facility]. MSE: casually dressed, prominently missing one front tooth appears broken off, nml speech, fair eye contact preferring to look at TV, altho initially dismissive of attempt to interview and was annoyed w/TV being turned down/off for interview. Took controls and turned TV back on. affect initially controlled but appeared annoyed with interview, and quickly became angry with direct addressing of dispo issue as noted. thoughts-seem concrete, and without evid of overt delusions or responding to internal stimuli. did not report thoughts to harm self (and on prior interviews denied any SI). angrily threw item at staff yelling for all to get out. i/j both poor. unable to assess cognition formally. DX/REC: neurocognitive d/o, unspecified- seems with dementia, mult etiologies likely vascular, possibly fronto-temporal, and may have had hx of hypoxic-ischemic or tbi opiate use disorder, chronic, severe, in remission in hospital setting -has consistently reported no MH hx, and her meds on admission were not meds typically Rxd for BMD but rather most likely for chronic pain if trying to avoid narcotics (duloxetine, elavil). Son also indicates her MH dx was fairly recent 2011, and as noted above. If with FTD, clinically she would have apathy and behavioral/personality changes with more preserved memory. Has not allowed MRI. -Suspect more records available at outside hospitals where she has frequently been admitted and may be helpful if indicated: [facility], also outpatient records from [facility]. She may have had more w/u there if further is needed for dx clarification. -She presently is unable to engage in any meaningful discussion regarding her disposition, and is not felt to be able to care for herself outside of a supportive setting. She had been for years in section 8 housing with home care and a senior case manager, and was apparently in need of transition to assisted living for quite some time. Likely needs a guardian. Has a proxy decision-maker. -d/w hospitalist, her bone condition and hx of opiates, may have some chronic pain issues that would benefit from non-narcotic med. -will cont to follow along Objective: Vital Signs Temp Pulse Resp BP Pulse Ox 36.7 C 90 16 89/56 L 93 04/14/18 07:04 04/14/18 07:04 04/14/18 07:04 04/14/18 07:04 04/14/18 07:04 Laboratory Results 04/05/18 04:38 04/05/18 04:38 - Pending Discharge Pending Discharge Within 24 Hours: No Pending Discharge Within 48 Hours: No ICD10 Worksheet Patient Problems: Problems Problem Status Onset Dementia Acute Failure to thrive in adult Acute
--- NOTE | 2018-05-12 14:36 | HOSPPROG ---
Hospitalist Progress Note Assessment/Plan: Chronic metabolic encephalopathy: vascular dementia per imaging here and prior OSH records. chart extensively reviewed, and case discussed with CM and psych. psych consulted. case discussed with son and psychiatry. patient with long standing hx of drug abuse, family hx of dementia. -TSH, B12 WNL HIV, RPR negative. Moderate atrophy on CTH -on medical hold -psychiatry eval consistent with FTD. Vascular dementia: -Neurology evaluated and agree that moderated atrophy and h/o CVA suggest vascular or other type of dementia -Would benefit from safe, supervised unit Spiculated lung mass: concern for malignancy with adenopathy. Patient not candidate for treatment given her progressive dementia. patient has history of Ollier disease. Hypertension: not on meds currently. Refusing BP checks Bipolar I disorder: reviewed OSH records. Admitted to [facility] 01/15 with paranoia and decompensated bipolar -Dr. Bustos evaluated earlier in stay and stopped Elavil, Duloxetine -patient with aggressive behavior and refusing any care. Psych has been re- consulted to evaluate patient and consider possible mood stabilizers. Iron deficiency anemia: PO iron Type 2 diabetes: diet-controlled GERD: PPI COPD- stable, not requiring oxygen and refusing medications. history of nephrectomy disp: working with CM to get sister to become proxy and then to SNF. Subjective: patient states she did not sleep last night. No complaints of sob, cough, NV, fevers, chills or other symptoms. Objective: Vital Signs Temp Pulse Resp BP Pulse Ox 36.7 C 90 16 89/56 L 93 04/14/18 07:04 04/14/18 07:04 04/14/18 07:04 04/14/18 07:04 04/14/18 07:04 Laboratory Results 04/05/18 04:38 04/05/18 04:38 - Physical Exam Constitutional: no apparent distress, appears nourished, not in pain Psychiatric: not anxious (patient adamantly refuses physical examination) ICD10 Worksheet Patient Problems: Problems Problem Status Onset Dementia Acute Failure to thrive in adult Acute
--- NOTE | 2018-05-12 16:12 | ASMTCMCOM ---
CM Note CM Note Notes: CM left two messages w/ [facility]. CM made several more SNF referrals. [employer] initiated LTC Medicaid application. CM resent level 2 pasrr with primary dx of dementia to Marie. Marie from [facility] will re-evaluate w/ her team and get back to us tomorrow. CM to follow. Plan: TBD Date Signed: 05/12/2018 04:11 PM Electronically Signed By:SILVIO Del Real
[2018-05-12] MEDS: SUCRALFATE 1 GM TAB PO SCH ×2 (21:35→22:24)
[2018-05-12] MEDS: PANTOPRAZOLE SODIUM 40 MG TAB PO SCH ×2 (21:36→22:26)
[2018-05-12] MEDS: ENOXAPARIN 40 MG/0.4 ML SYR SC SCH (22:25)
[2018-05-12] MEDS: FERROUS SULFATE 325 MG TAB PO SCH (22:25)
[2018-05-12] MEDS: ATORVASTATIN CALCIUM 10 MG TAB PO SCH (22:25)
[2018-05-12] MEDS: metFORMIN HCL 500 MG TAB PO SCH (22:25)
[2018-05-12] MEDS: POLYETHYLENE GLYCOL 3350 17 GM PKT PO SCH (22:26)
--- NOTE | 2018-05-13 16:17 | ASMTCMCOM ---
CM Note CM Note Notes: CM left several messages w/ SNF. CM spoke to Altagracia Mcdaniels w/ [facility] and they have a locked dementia unit. They would need to see the guardianship paperwork before they can accept her. [facility] (P#: [phone]) [facility] (P#: [phone]) left a msg [facility] (P#: [phone] or [phone]) left a prg [facility] (P#: [phone]) left a msg [facility] (P#: [phone]) left a msg Date Signed: 05/13/2018 04:17 PM Electronically Signed By:SILVIO Del Real
--- NOTE | 2018-05-13 18:12 | HOSPPROG ---
Hospitalist Progress Note Assessment/Plan: Chronic metabolic encephalopathy: vascular dementia per imaging here and prior OSH records. chart extensively reviewed, and case discussed with CM and psych. psych consulted. case discussed with son and psychiatry. patient with long standing hx of drug abuse, family hx of dementia. -TSH, B12 WNL HIV, RPR negative. Moderate atrophy on CTH -on medical hold -psychiatry eval consistent with FTD. Vascular dementia: -Neurology evaluated and agree that moderated atrophy and h/o CVA suggest vascular or other type of dementia -Would benefit from safe, supervised unit Spiculated lung mass: concern for malignancy with adenopathy. Patient not candidate for treatment given her progressive dementia. patient has history of Ollier disease. Hypertension: not on meds currently. Refusing BP checks Bipolar I disorder: reviewed OSH records. Admitted to [facility] 01/15 with paranoia and decompensated bipolar -Dr. Bustos evaluated earlier in stay and stopped Elavil, Duloxetine -patient with aggressive behavior and refusing any care. Psych has been re- consulted to evaluate patient and consider possible mood stabilizers. Iron deficiency anemia: PO iron Type 2 diabetes: diet-controlled GERD: PPI COPD- stable, not requiring oxygen and refusing medications. history of nephrectomy disp: working with CM to get sister to become proxy and then to SNF. Subjective: patient without complaints today. wanted to be left alone. Objective: Vital Signs Temp Pulse Resp BP Pulse Ox 36.7 C 90 16 89/56 L 93 04/14/18 07:04 04/14/18 07:04 04/14/18 07:04 04/14/18 07:04 04/14/18 07:04 Laboratory Results 04/05/18 04:38 04/05/18 04:38 - Physical Exam Constitutional: no apparent distress, appears nourished, not in pain Neurologic: CN II-XII Intact Psychiatric: flat affect (most of examination refused) ICD10 Worksheet Patient Problems: Problems Problem Status Onset Dementia Acute Failure to thrive in adult Acute
[2018-05-14] MEDS: ENOXAPARIN 40 MG/0.4 ML SYR SC SCH ×2 (00:07→11:27)
[2018-05-14] MEDS: SUCRALFATE 1 GM TAB PO SCH ×6 (00:07→19:48)
[2018-05-14] MEDS: POLYETHYLENE GLYCOL 3350 17 GM PKT PO SCH ×2 (00:07→11:29)
[2018-05-14] MEDS: metFORMIN HCL 500 MG TAB PO SCH ×3 (00:07→17:15)
[2018-05-14] MEDS: PANTOPRAZOLE SODIUM 40 MG TAB PO SCH ×3 (00:07→19:48)
[2018-05-14] MEDS: ATORVASTATIN CALCIUM 10 MG TAB PO SCH ×2 (00:07→11:26)
[2018-05-14] MEDS: FERROUS SULFATE 325 MG TAB PO SCH ×2 (00:07→11:27)
--- NOTE | 2018-05-14 16:14 | HOSPPROG ---
Hospitalist Progress Note Assessment/Plan: Chronic metabolic encephalopathy: vascular dementia per imaging here and prior OSH records. chart extensively reviewed, and case discussed with CM and psych. psych consulted. case discussed with son and psychiatry. patient with long standing hx of drug abuse, family hx of dementia. Discussed case with son Jake who says that she has hx of dementia and a strong family history of dementia. -TSH, B12 WNL HIV, RPR negative. Moderate atrophy on CTH -on medical hold -psychiatry eval consistent with FTD. Vascular dementia: -Neurology evaluated and agree that moderated atrophy and h/o CVA suggest vascular or other type of dementia -Would benefit from safe, supervised unit. Plan for sister to become proxy, and then transfer to a locked inpatient SNF Spiculated lung mass: concern for malignancy with adenopathy. Patient not candidate for treatment given her progressive dementia. patient has history of Ollier disease. Hypertension: Not on anything, refusing examination, BP checks of medications Bipolar I disorder: reviewed OSH records. Admitted to [facility] 01/15 with paranoia and decompensated bipolar -Dr. Bustos evaluated earlier in stay and stopped Elavil, Duloxetine, psych reconsulted who felt best plan is to get patient transferred to SNF, and no need to force medications on patient. Iron deficiency anemia: patient refusing lab sticks, vitals or any other exam. Type 2 diabetes: diet-controlled GERD: PPI if patient will accept COPD- stable, not requiring oxygen and refusing medications. history of nephrectomy disp: working with CM to get sister to become proxy and then to SNF. Subjective: patient with no complaints. denied any pain, NV, chest pain sob, fevers, or chills. when asked if I could examine her she refuses saying "i am actually a doctor and do not need examined" Objective: Vital Signs Temp Pulse Resp BP Pulse Ox 36.7 C 90 16 89/56 L 93 04/14/18 07:04 04/14/18 07:04 04/14/18 07:04 04/14/18 07:04 04/14/18 07:04 Laboratory Results 04/05/18 04:38 04/05/18 04:38 - Physical Exam Constitutional: no apparent distress, appears nourished, not in pain Eyes: PERRL (patient refusing any examination. ) ICD10 Worksheet Patient Problems: Problems Problem Status Onset Dementia Acute Failure to thrive in adult Acute
[2018-05-15] MEDS: metFORMIN HCL 500 MG TAB PO SCH ×2 (09:57→17:06)
[2018-05-15] MEDS: SUCRALFATE 1 GM TAB PO SCH ×3 (09:57→20:02)
[2018-05-15] MEDS: ATORVASTATIN CALCIUM 10 MG TAB PO SCH (09:57)
[2018-05-15] MEDS: ENOXAPARIN 40 MG/0.4 ML SYR SC SCH (09:57)
[2018-05-15] MEDS: FERROUS SULFATE 325 MG TAB PO SCH (09:58)
[2018-05-15] MEDS: PANTOPRAZOLE SODIUM 40 MG TAB PO SCH ×2 (09:58→20:02)
[2018-05-15] MEDS: POLYETHYLENE GLYCOL 3350 17 GM PKT PO SCH (09:58)
--- NOTE | 2018-05-15 13:42 | HOSPPROG ---
Hospitalist Progress Note Assessment/Plan: 57 year old female with pmh of polysubstance abuse, Olliers disease, dementia, admitted in early March after being found down. Medically stabilized but struggling with disposition because patient is not competent to make decisions, and has no medical proxy. Son refuses to be MDPOA, and current goal is for sister Nayana to become emergency proxy and then place patient in locked inpatient SNF. Chronic metabolic encephalopathy: vascular dementia per imaging here and prior OSH records. chart extensively reviewed, and case discussed with CM and psych. psych consulted. case discussed with son and psychiatry. patient with long standing hx of drug abuse, family hx of dementia. Discussed case with son Jake who says that she has hx of dementia and a strong family history of dementia. -TSH, B12 WNL HIV, RPR negative. Moderate atrophy on CTH -on medical hold -psychiatry eval consistent with FTD. Vascular dementia: -Neurology evaluated and agree that moderated atrophy and h/o CVA suggest vascular or other type of dementia -Would benefit from safe, supervised unit. Plan for sister to become proxy, and then transfer to a locked inpatient SNF Spiculated lung mass: concern for malignancy with adenopathy. Patient not candidate for treatment given her progressive dementia. Hypertension: Not on anything, refusing examination, BP checks of medications Bipolar I disorder: reviewed OSH records. Admitted to [facility] 01/15 with paranoia and decompensated bipolar -Dr. Bustos evaluated earlier in stay and stopped Elavil, Duloxetine, psych reconsulted who felt best plan is to get patient transferred to SNF, and no need to force medications on patient. Iron deficiency anemia: patient refusing lab sticks, vitals or any other exam. Type 2 diabetes: diet-controlled, as far as we can tell as she refuses any finger sticks or lab examinations. GERD: patient refuses any medications COPD- stable, not requiring oxygen and refusing medications. history of nephrectomy disp: I had a long decision with her sister Nayana at [phone] regarding Mayte. She has agreed to complete the emergency proxy paperwork. Once that is completed plan to work with CM to place patient in SNF unit. Will continue working with Susan Gilmore on this. Mayte has been determined to not be competent and is a harm to herself or others. Continue medical hold, pending disposition with assitance of CM. Subjective: patient with no complaints today. Again refuses any examination, but denies any pain, or other needs. Objective: Vital Signs Temp Pulse Resp BP Pulse Ox 36.7 C 90 16 89/56 L 93 04/14/18 07:04 04/14/18 07:04 04/14/18 07:04 04/14/18 07:04 04/14/18 07:04 Laboratory Results 04/05/18 04:38 04/05/18 04:38 - Physical Exam Constitutional: no apparent distress, appears nourished, not in pain Neurologic: CN II-XII Intact Psychiatric: flat affect (patient refuses any examination. ) ICD10 Worksheet Patient Problems: Problems Problem Status Onset Dementia Acute Failure to thrive in adult Acute
--- NOTE | 2018-05-16 12:57 | HOSPPROG ---
Hospitalist Progress Note Assessment/Plan: 57 yo F admited w encephalopathy, failure of independent living Plan of care: needs locked unit Amnesia/encephalopathy: * Long history of multiple psychiatric issues and also reported history of vascular dementia. Reviewing the social and medical issues of the past several months, she clearly is unable to manage her medical or other life affairs safely or effectively. microcytic anemia with iron deficiency raising concern for possible GI malignancy versus other cause of blood loss. declines workup possible lung cancer with spiculated nodule and LAD declines further workup chronic pain - not currently on narcotics per her med rec, but with known history of narcotic abuse\ DM2 metformin HLD - lipitor htn - not on meds, BP ok COPD - on RA, no exacerbation; continue some low-level tobacco use h/o nephrectomy dispo: she needs a court appointed guardian proph: enox Subjective: no complaints. no progress on CM Objective: Vital Signs Temp Pulse Resp BP Pulse Ox 36.7 C 90 16 89/56 L 93 04/14/18 07:04 04/14/18 07:04 04/14/18 07:04 04/14/18 07:04 04/14/18 07:04 Laboratory Results 04/05/18 04:38 04/05/18 04:38 - Physical Exam Constitutional: no apparent distress, appears nourished Eyes: PERRL, anicteric sclera Ears, Nose, Mouth, Throat: moist mucous membranes, hearing normal Cardiovascular: regular rate and rhythym, no murmur, rub, or gallop Respiratory: no respiratory distress, no rales or rhonchi Gastrointestinal: normoactive bowel sounds, soft, non-tender abdomen Genitourinary: No montelongo in urethra Skin: warm, normal color Musculoskeletal: full muscle strength Neurologic: AAOx3 ICD10 Worksheet Patient Problems: Problems Problem Status Onset Dementia Acute Failure to thrive in adult Acute
--- NOTE | 2018-05-16 15:50 | ASMTCMCOM ---
CM Note CM Note Notes: Spoke with Susan Mendoza who states patient's sister Nayana will serve as proxy and patient can be admitted to SNF with a proxy. Susan requested the patient's physician call Nayana to discuss the patient's care and treatment. Gave Nayana's information to Dr. Bills to follow up. Left messages for [facility], [facility], regarding placement of patient. Awaiting return calls. Spoke with adalid, Gin, with [facility] and they have said no , they cannot meet patient's needs. Left another message for Altagracia with [facility] to see if they can take proxy vs. guardianship. All phone numbers are in CM note dated 05/13/18. CM will follow. Date Signed: 05/16/2018 03:50 PM Electronically Signed By:Angie Patel LCSW
[2018-05-16] MEDS: ATORVASTATIN CALCIUM 10 MG TAB PO SCH (19:14)
[2018-05-16] MEDS: ENOXAPARIN 40 MG/0.4 ML SYR SC SCH (19:15)
[2018-05-16] MEDS: FERROUS SULFATE 325 MG TAB PO SCH (19:15)
[2018-05-16] MEDS: PANTOPRAZOLE SODIUM 40 MG TAB PO SCH ×2 (19:16→19:17)
[2018-05-16] MEDS: metFORMIN HCL 500 MG TAB PO SCH (19:16)
[2018-05-16] MEDS: POLYETHYLENE GLYCOL 3350 17 GM PKT PO SCH (19:22)
[2018-05-16] MEDS: SUCRALFATE 1 GM TAB PO SCH ×3 (19:23→19:25)
[2018-05-17] MEDS: SUCRALFATE 1 GM TAB PO SCH ×4 (07:18→20:47)
[2018-05-17] MEDS: metFORMIN HCL 500 MG TAB PO SCH ×2 (07:18→19:34)
--- NOTE | 2018-05-17 09:31 | HOSPPROG ---
Hospitalist Progress Note Assessment/Plan: 57 yo F admited w encephalopathy, failure of independent living Plan of care: needs locked unit Amnesia/encephalopathy: * Long history of multiple psychiatric issues and also reported history of vascular dementia. Reviewing the social and medical issues of the past several months, she clearly is unable to manage her medical or other life affairs safely or effectively. microcytic anemia with iron deficiency raising concern for possible GI malignancy versus other cause of blood loss. declines workup possible lung cancer with spiculated nodule and LAD declines further workup chronic pain - not currently on narcotics per her med rec, but with known history of narcotic abuse\ DM2 metformin HLD - lipitor htn - not on meds, BP ok COPD - on RA, no exacerbation; continue some low-level tobacco use h/o nephrectomy dispo: she needs a court appointed guardian proph: enox Subjective: called sister Objective: Vital Signs Temp Pulse Resp BP Pulse Ox 36.7 C 90 16 89/56 L 93 04/14/18 07:04 04/14/18 07:04 04/14/18 07:04 04/14/18 07:04 04/14/18 07:04 Laboratory Results 04/05/18 04:38 04/05/18 04:38 - Physical Exam Constitutional: no apparent distress, appears nourished Eyes: PERRL, anicteric sclera Ears, Nose, Mouth, Throat: moist mucous membranes, hearing normal Cardiovascular: regular rate and rhythym, no murmur, rub, or gallop Respiratory: no respiratory distress, no rales or rhonchi Gastrointestinal: normoactive bowel sounds, soft, non-tender abdomen Genitourinary: no bladder fullness, No montelongo in urethra Skin: warm, normal color Musculoskeletal: full muscle strength Neurologic: AAOx3 ICD10 Worksheet Patient Problems: Problems Problem Status Onset Dementia Acute Failure to thrive in adult Acute
--- NOTE | 2018-05-17 10:40 | ASMTCMCOM ---
CM Note CM Note Notes: Dr. Bills spoke with patient's sister, Nayana who confirmed she will serve as proxy for the patient and hopes to have the guardianship papers done by the end of the week. Left another message for [facility] to see if they will accept proxy until guardianship complete and take patient for their locked dementia unit. (Altagracia [phone]). [facility] continues to follow patient as well. Continuing to call SNF's that have not responded yet. CM will follow. Date Signed: 05/17/2018 10:39 AM Electronically Signed By:Angie Patel LCSW
[2018-05-17] MEDS: ENOXAPARIN 40 MG/0.4 ML SYR SC SCH (11:40)
[2018-05-17] MEDS: ATORVASTATIN CALCIUM 10 MG TAB PO SCH (11:40)
[2018-05-17] MEDS: FERROUS SULFATE 325 MG TAB PO SCH (11:41)
[2018-05-17] MEDS: POLYETHYLENE GLYCOL 3350 17 GM PKT PO SCH (11:41)
[2018-05-17] MEDS: PANTOPRAZOLE SODIUM 40 MG TAB PO SCH ×2 (11:41→20:47)
--- NOTE | 2018-05-17 11:48 | ASMTCMCOM ---
CM Note CM Note Notes: Update on SNF response to referral. [facility] and [facility] have said no, declined patient. New messages were left for [facility] and [facility]. NATALIA spoke with Cristina from [facility] at [place] and she plans to do an onsite visit with the patient today or tomorrow. CM will follow. Date Signed: 05/17/2018 11:47 AM Electronically Signed By:Angie Patel LCSW
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
[2018-05-18] MEDS: ATORVASTATIN CALCIUM 10 MG TAB PO SCH (10:50)
[2018-05-18] MEDS: ENOXAPARIN 40 MG/0.4 ML SYR SC SCH (10:50)
[2018-05-18] MEDS: FERROUS SULFATE 325 MG TAB PO SCH (10:50)
[2018-05-18] MEDS: metFORMIN HCL 500 MG TAB PO SCH ×2 (10:50→21:27)
[2018-05-18] MEDS: SUCRALFATE 1 GM TAB PO SCH ×2 (10:51→21:26)
[2018-05-18] MEDS: POLYETHYLENE GLYCOL 3350 17 GM PKT PO SCH (10:51)
[2018-05-18] MEDS: PANTOPRAZOLE SODIUM 40 MG TAB PO SCH ×2 (10:51→21:27)
--- NOTE | 2018-05-18 14:21 | HOSPPROG ---
Hospitalist Progress Note Assessment/Plan: 57 yo F admited w encephalopathy, failure of independent living Plan of care: needs locked unit Amnesia/encephalopathy: * Long history of multiple psychiatric issues and also reported history of vascular dementia. Reviewing the social and medical issues of the past several months, she clearly is unable to manage her medical or other life affairs safely or effectively. microcytic anemia with iron deficiency raising concern for possible GI malignancy versus other cause of blood loss. declines workup possible lung cancer with spiculated nodule and LAD declines further workup chronic pain - not currently on narcotics per her med rec, but with known history of narcotic abuse\ DM2 metformin HLD - lipitor htn - not on meds, BP ok COPD - on RA, no exacerbation; continue some low-level tobacco use h/o nephrectomy dispo: sister in [place] has agreed to be legal guardian awaiting paperwork- she states she has it proph: enox Subjective: wathcing TV. no complaints, no requests Objective: Vital Signs Temp Pulse Resp BP Pulse Ox 36.7 C 90 16 89/56 L 93 04/14/18 07:04 04/14/18 07:04 04/14/18 07:04 04/14/18 07:04 04/14/18 07:04 Laboratory Results 04/05/18 04:38 04/05/18 04:38 - Physical Exam Constitutional: no apparent distress, appears nourished Eyes: PERRL, anicteric sclera Ears, Nose, Mouth, Throat: moist mucous membranes, hearing normal Cardiovascular: regular rate and rhythym, no murmur, rub, or gallop Respiratory: no respiratory distress, no rales or rhonchi Gastrointestinal: normoactive bowel sounds, soft, non-tender abdomen Genitourinary: no bladder fullness, No montelongo in urethra Skin: warm Musculoskeletal: full muscle strength Neurologic: No AAOx3 ICD10 Worksheet Patient Problems: Problems Problem Status Onset Dementia Acute Failure to thrive in adult Acute
--- NOTE | 2018-05-19 10:30 | HOSPPROG ---
Hospitalist Progress Note Assessment/Plan: 57 yo F admited w encephalopathy, failure of independent living Plan of care: needs locked unit Amnesia/encephalopathy: * Long history of multiple psychiatric issues and also reported history of vascular dementia. Reviewing the social and medical issues of the past several months, she clearly is unable to manage her medical or other life affairs safely or effectively. microcytic anemia with iron deficiency raising concern for possible GI malignancy versus other cause of blood loss. declines workup possible lung cancer with spiculated nodule and LAD declines further workup chronic pain - not currently on narcotics per her med rec, but with known history of narcotic abuse\ DM2 metformin HLD - lipitor htn - not on meds, BP ok COPD - on RA, no exacerbation; continue some low-level tobacco use h/o nephrectomy dispo: sister in [place] has agreed to be legal guardian awaiting paperwork- she states she has it 05/19- will have CM follow up with sister re: completion of paperwork proph: enox Subjective: no complaints, no requests Objective: Vital Signs Temp Pulse Resp BP Pulse Ox 36.7 C 90 16 89/56 L 93 04/14/18 07:04 04/14/18 07:04 04/14/18 07:04 04/14/18 07:04 04/14/18 07:04 Laboratory Results 04/05/18 04:38 04/05/18 04:38 - Physical Exam Constitutional: no apparent distress, appears nourished Eyes: PERRL, anicteric sclera Ears, Nose, Mouth, Throat: moist mucous membranes, hearing normal Cardiovascular: regular rate and rhythym, no murmur, rub, or gallop Respiratory: no respiratory distress, no rales or rhonchi Gastrointestinal: normoactive bowel sounds, soft, non-tender abdomen Genitourinary: No montelongo in urethra Skin: warm, normal color Musculoskeletal: full muscle strength Neurologic: AAOx3 ICD10 Worksheet Patient Problems: Problems Problem Status Onset Dementia Acute Failure to thrive in adult Acute
[2018-05-19] MEDS: ATORVASTATIN CALCIUM 10 MG TAB PO SCH (14:11)
[2018-05-19] MEDS: FERROUS SULFATE 325 MG TAB PO SCH (14:12)
[2018-05-19] MEDS: metFORMIN HCL 500 MG TAB PO SCH ×2 (14:12→17:25)
[2018-05-19] MEDS: PANTOPRAZOLE SODIUM 40 MG TAB PO SCH ×2 (14:12→20:45)
[2018-05-19] MEDS: ENOXAPARIN 40 MG/0.4 ML SYR SC SCH (14:12)
[2018-05-19] MEDS: POLYETHYLENE GLYCOL 3350 17 GM PKT PO SCH (14:12)
[2018-05-19] MEDS: SUCRALFATE 1 GM TAB PO SCH ×4 (14:12→20:45)
--- NOTE | 2018-05-19 17:38 | ASMTCMCOM ---
NATALIA Note NATALIA Note Notes: Spoke w/pt's sister Nayana in [facility] ([phone]). She has not filled out paperwork for guardianship. She has a lot of questions about what her responsibilities are and/or are there any financial responsibilities. She states she has little financial means and feels the paperwork is complicated and will need help. She does not think she can afford a commercial construction project manager. NATALIA told her I would discuss matter with our director and will contact her tomorrow. 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 Date Signed: 05/19/2018 05:37 PM Electronically Signed By:Romana Osborn RN
[2018-05-20] MEDS: PANTOPRAZOLE SODIUM 40 MG TAB PO SCH ×2 (07:20→20:33)
[2018-05-20] MEDS: POLYETHYLENE GLYCOL 3350 17 GM PKT PO SCH (07:20)
[2018-05-20] MEDS: ENOXAPARIN 40 MG/0.4 ML SYR SC SCH (07:20)
[2018-05-20] MEDS: metFORMIN HCL 500 MG TAB PO SCH ×2 (07:20→18:32)
[2018-05-20] MEDS: ATORVASTATIN CALCIUM 10 MG TAB PO SCH (07:20)
[2018-05-20] MEDS: FERROUS SULFATE 325 MG TAB PO SCH (07:20)
[2018-05-20] MEDS: SUCRALFATE 1 GM TAB PO SCH ×4 (07:21→20:33)
--- NOTE | 2018-05-20 10:03 | HOSPPROG ---
Hospitalist Progress Note Assessment/Plan: 57 yo F admited w encephalopathy, failure of independent living Plan of care: perhaps she doesnt need locked unit has been here for weeks, not attempting to leave Amnesia/encephalopathy: * Long history of multiple psychiatric issues and also reported history of vascular dementia. Reviewing the social and medical issues of the past several months, she clearly is unable to manage her medical or other life affairs safely or effectively. microcytic anemia with iron deficiency raising concern for possible GI malignancy versus other cause of blood loss. declines workup possible lung cancer with spiculated nodule and LAD declines further workup chronic pain - not currently on narcotics per her med rec, but with known history of narcotic abuse\ DM2 metformin HLD - lipitor htn - not on meds, BP ok COPD - on RA, no exacerbation; continue some low-level tobacco use h/o nephrectomy dispo: sister in [place] has agreed to be legal guardian awaiting paperwork- she states she has it 05/19- will have CM follow up with sister re: completion of paperwork proph: enox Subjective: eating arabic toast. no complaints. no requests Objective: Vital Signs Temp Pulse Resp BP Pulse Ox 36.7 C 90 16 89/56 L 93 04/14/18 07:04 04/14/18 07:04 04/14/18 07:04 04/14/18 07:04 04/14/18 07:04 Laboratory Results 04/05/18 04:38 04/05/18 04:38 - Physical Exam Constitutional: no apparent distress, appears nourished Eyes: PERRL, anicteric sclera Ears, Nose, Mouth, Throat: moist mucous membranes, hearing normal Cardiovascular: regular rate and rhythym, no murmur, rub, or gallop Respiratory: no respiratory distress, no rales or rhonchi Gastrointestinal: normoactive bowel sounds, soft, non-tender abdomen Genitourinary: No montelongo in urethra Skin: warm Musculoskeletal: full muscle strength Neurologic: AAOx3 ICD10 Worksheet Patient Problems: Problems Problem Status Onset Dementia Acute Failure to thrive in adult Acute
--- NOTE | 2018-05-20 15:17 | ASMTCMCOM ---
CM Note CM Note Notes: [facility] at their facility, CM heavy equipment service manager notified. Per Leilani Mendoza, she spoke with sister who has a better understanding of guardianship paperwork now and will work on them. DC Plan: TBD Date Signed: 05/20/2018 03:06 PM Electronically Signed By:Romana Osborn RN
[2018-05-21] MEDS: ENOXAPARIN 40 MG/0.4 ML SYR SC SCH (10:41)
[2018-05-21] MEDS: ATORVASTATIN CALCIUM 10 MG TAB PO SCH (10:41)
[2018-05-21] MEDS: metFORMIN HCL 500 MG TAB PO SCH (10:41)
[2018-05-21] MEDS: FERROUS SULFATE 325 MG TAB PO SCH (10:41)
[2018-05-21] MEDS: SUCRALFATE 1 GM TAB PO SCH ×4 (10:41→21:00)
[2018-05-21] MEDS: PANTOPRAZOLE SODIUM 40 MG TAB PO SCH ×2 (10:41→21:00)
[2018-05-21] MEDS: POLYETHYLENE GLYCOL 3350 17 GM PKT PO SCH (10:41)
--- NOTE | 2018-05-21 16:52 | HOSPPROG ---
Hospitalist Progress Note Assessment/Plan: Subjective Follow-up on suspected lung cancer and encephalopathy. No acute events overnight. Patient did not have any questions for me today but was pleasant at the time of my evaluation. Objective Vital signs have been declined Exam General-awake alert conversant no acute distress Heart-regular rate and rhythm no murmurs Lungs-Clear to auscultation with normal respiratory effort Abdomen-soft nontender nondistended normal bowel sounds -no Cox catheter in place Extremities-no significant pitting edema or calf pain with palpation Skin-no concerning skin rashes noted Assessment and plan Encephalopathy-patient with suspected dementia. Placement his primary concern currently. Patient's family are not involved with her care. She has a designated power of commercial attorney at the present time. Lung cancer-suspected based upon chest CT upon admission. Not felt to be a candidate for treatment currently considering her advanced dementia. Hypertension-history of. No current medical therapy. Continue to monitor. COPD-appears stable. Diabetes mellitus type 2-patient states she is declining metformin so I told her I would take of off of her active medication list. This also applies to atorvastatin. Esophageal reflux-ppi. DVT prophylaxis-Lovenox. Disposition-case management looking at placement which is complex in light of her dementia and lack of family involvement. Objective: Vital Signs Temp Pulse Resp BP Pulse Ox 36.7 C 90 16 89/56 L 93 04/14/18 07:04 04/14/18 07:04 04/14/18 07:04 04/14/18 07:04 04/14/18 07:04 Laboratory Results 04/05/18 04:38 04/05/18 04:38 ICD10 Worksheet Patient Problems: Problems Problem Status Onset Dementia Acute Failure to thrive in adult Acute
--- NOTE | 2018-05-22 15:22 | HOSPPROG ---
Hospitalist Progress Note Assessment/Plan: Subjective Follow-up on suspected lung cancer and encephalopathy. No acute events overnight. Patient did not have any questions for me today but was pleasant at the time of my evaluation. Objective Vital signs have been declined Exam General-awake alert conversant no acute distress Heart-regular rate and rhythm no murmurs Lungs-Clear to auscultation with normal respiratory effort Abdomen-soft nontender nondistended normal bowel sounds -no Cox catheter in place Extremities-no significant pitting edema or calf pain with palpation Skin-no concerning skin rashes noted Assessment and plan Encephalopathy-patient with suspected dementia. Placement his primary concern currently. Patient's family are not involved with her care. She has a designated power of cloth winder at the present time. Lung cancer-suspected based upon chest CT upon admission. Not felt to be a candidate for treatment currently considering her advanced dementia. Hypertension-history of. Resolved. No current medical therapy. Continue to monitor. COPD-appears stable on exam. Diabetes mellitus type 2-metformin taken off of her medication list that she has been declining. I offered to obtain a hemoglobin A1c to assess her control but she declined. Hyperlipidemia-patient was on atorvastatin but declining so I have taken off her active medication list. Esophageal reflux-ppi. DVT prophylaxis-Lovenox. Disposition-case management looking at placement which is complex in light of her dementia and lack of family involvement. Objective: Vital Signs Temp Pulse Resp BP Pulse Ox 36.7 C 90 16 89/56 L 93 04/14/18 07:04 04/14/18 07:04 04/14/18 07:04 04/14/18 07:04 04/14/18 07:04 Laboratory Results 04/05/18 04:38 04/05/18 04:38 05/21/18 05/22/18 05/23/18 05:59 05:59 05:59 Intake Total 800 Balance 800 ICD10 Worksheet Patient Problems: Problems Problem Status Onset Dementia Acute Failure to thrive in adult Acute
[2018-05-22] MEDS: FERROUS SULFATE 325 MG TAB PO SCH (19:23)
[2018-05-22] MEDS: ENOXAPARIN 40 MG/0.4 ML SYR SC SCH (19:23)
[2018-05-22] MEDS: PANTOPRAZOLE SODIUM 40 MG TAB PO SCH ×2 (19:24→22:06)
[2018-05-22] MEDS: POLYETHYLENE GLYCOL 3350 17 GM PKT PO SCH (19:24)
[2018-05-22] MEDS: SUCRALFATE 1 GM TAB PO SCH ×4 (19:24→22:07)
[2018-05-23] MEDS: ENOXAPARIN 40 MG/0.4 ML SYR SC SCH (10:45)
[2018-05-23] MEDS: PANTOPRAZOLE SODIUM 40 MG TAB PO SCH ×2 (10:45→20:42)
[2018-05-23] MEDS: FERROUS SULFATE 325 MG TAB PO SCH (10:45)
[2018-05-23] MEDS: SUCRALFATE 1 GM TAB PO SCH ×2 (10:46→20:42)
[2018-05-23] MEDS: POLYETHYLENE GLYCOL 3350 17 GM PKT PO SCH (10:46)
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
--- NOTE | 2018-05-24 11:01 | ASMTCMCOM ---
CM Note CM Note Notes: No changes to current plan, still working on placement. Sister working on guardianship paperwork, Brennen Giltner continues to check in with sister. NATALIA w/f. Current discharge plan: Pending placement acceptance Date Signed: 05/24/2018 11:00 AM Electronically Signed By:Romana Osborn RN
[2018-05-24] MEDS: SUCRALFATE 1 GM TAB PO SCH ×4 (14:58→20:35)
[2018-05-24] MEDS: PANTOPRAZOLE SODIUM 40 MG TAB PO SCH ×2 (15:00→20:35)
[2018-05-24] MEDS: POLYETHYLENE GLYCOL 3350 17 GM PKT PO SCH (15:00)
[2018-05-24] MEDS: ENOXAPARIN 40 MG/0.4 ML SYR SC SCH (15:00)
[2018-05-24] MEDS: FERROUS SULFATE 325 MG TAB PO SCH (15:00)
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
[2018-05-25] MEDS: ENOXAPARIN 40 MG/0.4 ML SYR SC SCH (10:32)
[2018-05-25] MEDS: PANTOPRAZOLE SODIUM 40 MG TAB PO SCH ×2 (10:32→19:19)
[2018-05-25] MEDS: POLYETHYLENE GLYCOL 3350 17 GM PKT PO SCH (10:32)
[2018-05-25] MEDS: FERROUS SULFATE 325 MG TAB PO SCH (10:32)
[2018-05-25] MEDS: SUCRALFATE 1 GM TAB PO SCH ×4 (10:38→19:19)
--- NOTE | 2018-05-25 14:27 | ASMTCMCOM ---
CM Note CM Note Notes: Pt sister Nayana called, reports she has all guardianship paperwork filled out, will have it notarized tomorrow and Fedexed to court. CM to follow. Date Signed: 05/25/2018 02:26 PM Electronically Signed By:HAKAN Acevedo
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
[2018-05-26] MEDS: POLYETHYLENE GLYCOL 3350 17 GM PKT PO SCH (09:22)
[2018-05-26] MEDS: FERROUS SULFATE 325 MG TAB PO SCH (09:22)
[2018-05-26] MEDS: PANTOPRAZOLE SODIUM 40 MG TAB PO SCH ×2 (09:22→18:38)
[2018-05-26] MEDS: SUCRALFATE 1 GM TAB PO SCH ×4 (09:22→18:38)
[2018-05-26] MEDS: ENOXAPARIN 40 MG/0.4 ML SYR SC SCH (09:22)
--- NOTE | 2018-05-26 15:00 | ASMTCMCOM ---
CM Note CM Note Notes: Spoke w/pt's sister this am, she has all the paperwork done for guardianship for her sister but needs a letter from MD stating why she cannot care for herself. CM spoke w/physician, letter written, scanned and faxed to sister at: [email or web address]. DC Plan: TBD Date Signed: 05/26/2018 09:54 AM Electronically Signed By:Romana Osborn RN
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
[2018-05-27] MEDS: SUCRALFATE 1 GM TAB PO SCH ×3 (04:31→22:20)
--- NOTE | 2018-05-27 09:51 | ASMTCMCOM ---
CM Note CM Note Notes: Spoke w/pt's sister Nayana, she has completed paperwork, will go today to get it notarized, and will put in the mail Satruday. CM to resend referrals w/ guardianship in place. DC Plan: TBD Date Signed: 05/27/2018 09:50 AM Electronically Signed By:Romana Osborn RN
--- NOTE | 2018-05-27 17:02 | ASMTCMCOM ---
CM Note CM Note Notes: Received call from Za at [facility]. They are interested and have beds availble but they need more current labs and vitals. They are requesting hematology and chemistry labs specifically. RN tried to talk to pt about getting labs but pt became irate. notified, NATALIA w/f. DC Plan: [facility]? Date Signed: 05/27/2018 05:02 PM Electronically Signed By:Romana Osbonr RN
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
[2018-05-27] MEDS: FERROUS SULFATE 325 MG TAB PO SCH (19:10)
[2018-05-27] MEDS: ENOXAPARIN 40 MG/0.4 ML SYR SC SCH (19:10)
[2018-05-27] MEDS: PANTOPRAZOLE SODIUM 40 MG TAB PO SCH ×2 (19:10→22:20)
[2018-05-27] MEDS: POLYETHYLENE GLYCOL 3350 17 GM PKT PO SCH (19:11)
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
[2018-05-28] MEDS: FERROUS SULFATE 325 MG TAB PO SCH (11:31)
[2018-05-28] MEDS: ENOXAPARIN 40 MG/0.4 ML SYR SC SCH (11:31)
[2018-05-28] MEDS: PANTOPRAZOLE SODIUM 40 MG TAB PO SCH ×2 (11:32→19:56)
[2018-05-28] MEDS: POLYETHYLENE GLYCOL 3350 17 GM PKT PO SCH (11:33)
[2018-05-28] MEDS: SUCRALFATE 1 GM TAB PO SCH ×3 (11:33→19:56)
[2018-05-29] MEDS: ENOXAPARIN 40 MG/0.4 ML SYR SC SCH (10:15)
[2018-05-29] MEDS: SUCRALFATE 1 GM TAB PO SCH ×3 (10:15→21:48)
[2018-05-29] MEDS: FERROUS SULFATE 325 MG TAB PO SCH (10:15)
[2018-05-29] MEDS: PANTOPRAZOLE SODIUM 40 MG TAB PO SCH ×2 (10:17→21:48)
[2018-05-29] MEDS: POLYETHYLENE GLYCOL 3350 17 GM PKT PO SCH (10:17)
[2018-05-30] MEDS: FERROUS SULFATE 325 MG TAB PO SCH (10:40)
[2018-05-30] MEDS: SUCRALFATE 1 GM TAB PO SCH ×4 (10:40→21:00)
[2018-05-30] MEDS: POLYETHYLENE GLYCOL 3350 17 GM PKT PO SCH (10:40)
[2018-05-30] MEDS: ENOXAPARIN 40 MG/0.4 ML SYR SC SCH (10:40)
[2018-05-30] MEDS: PANTOPRAZOLE SODIUM 40 MG TAB PO SCH ×2 (10:40→21:00)
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
--- NOTE | 2018-05-30 15:07 | ASMTCMCOM ---
CM Note CM Note Notes: CM spoke to Donna Go NP regarding d/c POC. Pt will order labs - specifically hematology and chemistry per the request of Yanique PLAZA. NATALIA discussed this w/ Susan Mendoza. CM to follow. Date Signed: 05/30/2018 03:06 PM Electronically Signed By:SILVIO Del Real
[2018-05-31] MEDS: SUCRALFATE 1 GM TAB PO SCH ×3 (06:51→20:05)
[2018-05-31] MEDS: ENOXAPARIN 40 MG/0.4 ML SYR SC SCH (09:30)
[2018-05-31] MEDS: PANTOPRAZOLE SODIUM 40 MG TAB PO SCH ×2 (09:30→20:05)
[2018-05-31] MEDS: FERROUS SULFATE 325 MG TAB PO SCH (09:30)
[2018-05-31] MEDS: POLYETHYLENE GLYCOL 3350 17 GM PKT PO SCH (09:30)
--- NOTE | 2018-05-31 14:13 | ASMTCMCOM ---
CM Note CM Note Notes: CM spoke to Dr. Narayanan regarding this case. CM spoke to Nayana, sister/proxy. She reports that she signed all the documents that she needed to be pts guardian and got them notarized. Nayana reports that the courts should be getting it tomorrow. Dr. Narayanan will work on getting the labs and NATALIA can sent it to [facility]. CM to follow Date Signed: 05/31/2018 02:13 PM Electronically Signed By:SILVIO Del Real
--- NOTE | 2018-05-31 18:32 | HOSPPROG ---
Hospitalist Progress Note Assessment/Plan: 57 year old female with pmh of polysubstance abuse, Olliers disease, dementia, admitted in early March after being found down. Medically stabilized but struggling with disposition because patient is not competent to make decisions, and has no medical proxy. Son refuses to be MDPOA, and current goal is for sister Nayana to become emergency proxy and then place patient in locked inpatient SNF. Patients sister submitted proxy paperwork, and at this point inpatient unit will take patient if we can draw labs, but patient refusing. awaiting proxy paperwork to clear. Chronic metabolic encephalopathy: vascular dementia per imaging here and prior OSH records. chart extensively reviewed, and case discussed with CM and psych. psych consulted. case discussed with son and psychiatry. patient with long standing hx of drug abuse, family hx of dementia. Discussed case with son Jake who says that she has hx of dementia and a strong family history of dementia. -TSH, B12 WNL HIV, RPR negative. Moderate atrophy on CTH -on medical hold -psychiatry eval consistent with FTD. Vascular dementia: -Neurology evaluated and agree that moderated atrophy and h/o CVA suggest vascular or other type of dementia -Would benefit from safe, supervised unit. Plan for sister to become proxy, and then transfer to a locked inpatient SNF Spiculated lung mass: concern for malignancy with adenopathy. Patient not candidate for treatment given her progressive dementia. Hypertension: Not on anything, refusing examination, BP checks of medications Bipolar I disorder: reviewed OSH records. Admitted to [facility] 01/15 with paranoia and decompensated bipolar -Dr. Bustos evaluated earlier in stay and stopped Elavil, Duloxetine, psych reconsulted who felt best plan is to get patient transferred to SNF, and no need to force medications on patient. Iron deficiency anemia: patient refusing lab sticks, vitals or any other exam. Type 2 diabetes: diet-controlled, as far as we can tell as she refuses any finger sticks or lab examinations. GERD: patient refuses any medications COPD- stable, not requiring oxygen and refusing medications. history of nephrectomy disp: I had a long decision with her sister Nayana at [phone] regarding Mayte. She has agreed to complete the emergency proxy paperwork. Once that is completed plan to work with CM to place patient in SNF unit. Will continue working with Susan Gilmore on this. Mayte has been determined to not be competent and is a harm to herself or others. Continue medical hold, pending disposition with assitance of CM. Subjective: patient with no complaints today. Denies any pain Objective: Vital Signs Temp Pulse Resp BP Pulse Ox 36.7 C 90 16 89/56 L 93 04/14/18 07:04 04/14/18 07:04 04/14/18 07:04 04/14/18 07:04 04/14/18 07:04 Laboratory Results 04/05/18 04:38 04/05/18 04:38 - Physical Exam Constitutional: no apparent distress, appears nourished, not in pain Eyes: PERRL, anicteric sclera, EOMI Ears, Nose, Mouth, Throat: moist mucous membranes, hearing normal, ears appear normal, no oral mucosal ulcers Psychiatric: interacting appropriately, not anxious ICD10 Worksheet Patient Problems: Problems Problem Status Onset Dementia Acute Failure to thrive in adult Acute
[2018-06-01] MEDS: SUCRALFATE 1 GM TAB PO SCH ×4 (08:36→21:04)
[2018-06-01] MEDS: PANTOPRAZOLE SODIUM 40 MG TAB PO SCH ×2 (09:25→21:04)
[2018-06-01] MEDS: POLYETHYLENE GLYCOL 3350 17 GM PKT PO SCH (09:25)
[2018-06-01] MEDS: FERROUS SULFATE 325 MG TAB PO SCH (09:25)
[2018-06-01] MEDS: ENOXAPARIN 40 MG/0.4 ML SYR SC SCH (09:25)
--- NOTE | 2018-06-01 11:58 | ASMTCMCOM ---
CM Note CM Note Notes: Received call from Leonarda ([phone]) at [facility] stating that they thought that they can meet her needs. They would like copy of Ult[facility] and NATALIA escalante faxed. DC Plan: Secured SNF Date Signed: 06/01/2018 11:57 AM Electronically Signed By:Romana Osborn RN
--- NOTE | 2018-06-01 12:58 | HOSPPROG ---
Hospitalist Progress Note Assessment/Plan: 57 year old female with pmh of polysubstance abuse, Olliers disease, dementia, admitted in early March after being found down. Medically stabilized but struggling with disposition because patient is not competent to make decisions, and has no medical proxy. Son refuses to be MDPOA, and current goal is for sister Nayana to become emergency proxy and then place patient in locked inpatient SNF. Patients sister submitted proxy paperwork, and at this point inpatient unit will take patient if we can draw labs, but patient refusing. awaiting proxy paperwork to clear and then we can get permission to draw blood from proxy, and if normal discharge patient to rehab. Chronic metabolic encephalopathy: vascular dementia per imaging here and prior OSH records. chart extensively reviewed, and case discussed with CM and psych. psych consulted. case discussed with son and psychiatry. patient with long standing hx of drug abuse, family hx of dementia. Discussed case with son Jake who says that she has hx of dementia and a strong family history of dementia. -TSH, B12 WNL HIV, RPR negative. Moderate atrophy on CTH -on medical hold -psychiatry eval consistent with FTD. Vascular dementia: -Neurology evaluated and agree that moderated atrophy and h/o CVA suggest vascular or other type of dementia -Would benefit from safe, supervised unit. Plan for sister to become proxy, and then transfer to a locked inpatient SNF Spiculated lung mass: concern for malignancy with adenopathy. Patient not candidate for treatment given her progressive dementia. Hypertension: Not on anything, refusing examination, BP checks of medications Bipolar I disorder: reviewed OSH records. Admitted to [facility] 01/15 with paranoia and decompensated bipolar -Dr. Bustos evaluated earlier in stay and stopped Elavil, Duloxetine, psych reconsulted who felt best plan is to get patient transferred to SNF, and no need to force medications on patient. Iron deficiency anemia: patient refusing lab sticks, vitals or any other exam. Type 2 diabetes: diet-controlled, as far as we can tell as she refuses any finger sticks or lab examinations. GERD: patient refuses any medications COPD- stable, not requiring oxygen and refusing medications. history of nephrectomy disp: I had a long decision with her sister Nayana at [phone] regarding Mayte. She has agreed to complete the emergency proxy paperwork. Once that is completed plan to work with CM to place patient in SNF unit. Will continue working with Susan Gilmore on this. Mayte has been determined to not be competent and is a harm to herself or others. Continue medical hold, pending disposition with assitance of CM. Subjective: patient with no complaints. Objective: Vital Signs Temp Pulse Resp BP Pulse Ox 36.7 C 90 16 89/56 L 93 04/14/18 07:04 04/14/18 07:04 04/14/18 07:04 04/14/18 07:04 04/14/18 07:04 Laboratory Results 04/05/18 04:38 04/05/18 04:38 - Physical Exam Constitutional: no apparent distress, appears nourished, not in pain Ears, Nose, Mouth, Throat: moist mucous membranes, hearing normal Neurologic: CN II-XII Intact Psychiatric: interacting appropriately, not anxious, poor judgement ICD10 Worksheet Patient Problems: Problems Problem Status Onset Dementia Acute Failure to thrive in adult Acute
[2018-06-02] MEDS: SUCRALFATE 1 GM TAB PO SCH ×3 (06:22→20:30)
[2018-06-02] MEDS: POLYETHYLENE GLYCOL 3350 17 GM PKT PO SCH (11:40)
[2018-06-02] MEDS: FERROUS SULFATE 325 MG TAB PO SCH (11:40)
[2018-06-02] MEDS: ENOXAPARIN 40 MG/0.4 ML SYR SC SCH (11:40)
[2018-06-02] MEDS: PANTOPRAZOLE SODIUM 40 MG TAB PO SCH ×2 (11:40→20:30)
--- NOTE | 2018-06-02 16:25 | HOSPPROG ---
Hospitalist Progress Note Assessment/Plan: 57 year old female with pmh of polysubstance abuse, Olliers disease, dementia, admitted in early March after being found down. Medically stabilized but struggling with disposition because patient is not competent to make decisions, and has no medical proxy. Son refuses to be MDPOA, and current goal is for sister Nayana to become emergency proxy and then place patient in locked inpatient SNF. Patients sister submitted proxy paperwork, and at this point inpatient unit will take patient if we can draw labs, but patient refusing. awaiting proxy paperwork to clear and then we can get permission to draw blood from proxy, and if normal discharge patient to rehab. Chronic metabolic encephalopathy: vascular dementia per imaging here and prior OSH records. chart extensively reviewed, and case discussed with CM and psych. psych consulted. case discussed with son and psychiatry. patient with long standing hx of drug abuse, family hx of dementia. Discussed case with son Jake who says that she has hx of dementia and a strong family history of dementia. -TSH, B12 WNL HIV, RPR negative. Moderate atrophy on CTH -on medical hold -psychiatry eval consistent with FTD. Vascular dementia: -Neurology evaluated and agree that moderated atrophy and h/o CVA suggest vascular or other type of dementia -Would benefit from safe, supervised unit. Plan for sister to become proxy, and then transfer to a locked inpatient SNF Spiculated lung mass: concern for malignancy with adenopathy. Patient not candidate for treatment given her progressive dementia. Hypertension: Not on anything, refusing examination, BP checks of medications Bipolar I disorder: reviewed OSH records. Admitted to [facility] 01/15 with paranoia and decompensated bipolar -Dr. Bustos evaluated earlier in stay and stopped Elavil, Duloxetine, psych reconsulted who felt best plan is to get patient transferred to SNF, and no need to force medications on patient. Iron deficiency anemia: patient refusing lab sticks, vitals or any other exam. Type 2 diabetes: diet-controlled, as far as we can tell as she refuses any finger sticks or lab examinations. GERD: patient refuses any medications COPD- stable, not requiring oxygen and refusing medications. history of nephrectomy disp: I had a long decision with her sister Nayana at [phone] regarding Mayte. She has agreed to complete the emergency proxy paperwork. Once that is completed plan to work with CM to place patient in SNF unit. Will continue working with Susan Gilmore on this. Mayte has been determined to not be competent and is a harm to herself or others. Continue medical hold, pending disposition with assitance of CM. Subjective: patient refuses examination. no complaints. Denied pain or other concerns Objective: Vital Signs Temp Pulse Resp BP Pulse Ox 36.7 C 90 16 89/56 L 93 04/14/18 07:04 04/14/18 07:04 04/14/18 07:04 04/14/18 07:04 04/14/18 07:04 Laboratory Results 04/05/18 04:38 04/05/18 04:38 - Physical Exam Constitutional: no apparent distress, appears nourished, not in pain Ears, Nose, Mouth, Throat: hearing normal, ears appear normal Respiratory: no respiratory distress Neurologic: CN II-XII Intact Psychiatric: interacting appropriately, poor insight, poor judgement, poor memory ICD10 Worksheet Patient Problems: Problems Problem Status Onset Dementia Acute Failure to thrive in adult Acute
[2018-06-03] MEDS: POLYETHYLENE GLYCOL 3350 17 GM PKT PO SCH (08:42)
[2018-06-03] MEDS: ENOXAPARIN 40 MG/0.4 ML SYR SC SCH (08:42)
[2018-06-03] MEDS: FERROUS SULFATE 325 MG TAB PO SCH (08:42)
[2018-06-03] MEDS: SUCRALFATE 1 GM TAB PO SCH ×4 (08:42→19:45)
[2018-06-03] MEDS: PANTOPRAZOLE SODIUM 40 MG TAB PO SCH ×2 (08:42→19:45)
--- NOTE | 2018-06-03 14:12 | HOSPPROG ---
Hospitalist Progress Note Assessment/Plan: 57 year old female with pmh of polysubstance abuse, Olliers disease, dementia, admitted in early March after being found down. Medically stabilized but struggling with disposition because patient is not competent to make decisions, and has no medical proxy. Son refuses to be MDPOA, and current goal is for sister Nayana to become emergency proxy and then place patient in locked inpatient SNF. Patients sister submitted proxy paperwork, and at this point inpatient unit will take patient if we can draw labs, but patient refusing. awaiting proxy paperwork to clear and then we can get permission to draw blood from proxy, and if normal discharge patient to rehab. Chronic metabolic encephalopathy: vascular dementia per imaging here and prior OSH records. chart extensively reviewed, and case discussed with CM and psych. psych consulted. case discussed with son and psychiatry. patient with long standing hx of drug abuse, family hx of dementia. Discussed case with son Jake who says that she has hx of dementia and a strong family history of dementia. -TSH, B12 WNL HIV, RPR negative. Moderate atrophy on CTH -on medical hold -psychiatry eval consistent with FTD. Vascular dementia: -Neurology evaluated and agree that moderated atrophy and h/o CVA suggest vascular or other type of dementia -Would benefit from safe, supervised unit. Plan for sister to become proxy, and then transfer to a locked inpatient SNF Spiculated lung mass: concern for malignancy with adenopathy. Patient not candidate for treatment given her progressive dementia. Hypertension: Not on anything, refusing examination, BP checks of medications Bipolar I disorder: reviewed OSH records. Admitted to [facility] 01/15 with paranoia and decompensated bipolar -Dr. Bustos evaluated earlier in stay and stopped Elavil, Duloxetine, psych reconsulted who felt best plan is to get patient transferred to SNF, and no need to force medications on patient. Iron deficiency anemia: patient refusing lab sticks, vitals or any other exam. Type 2 diabetes: diet-controlled, as far as we can tell as she refuses any finger sticks or lab examinations. GERD: patient refuses any medications COPD- stable, not requiring oxygen and refusing medications. history of nephrectomy disp: I had a long decision with her sister Nayana at [phone] regarding Mayte. She has agreed to complete the emergency proxy paperwork. Once that is completed plan to work with CM to place patient in SNF unit. Will continue working with Susan Gilmore on this. Mayte has been determined to not be competent and is a harm to herself or others. Continue medical hold, pending disposition with assitance of CM. Subjective: no complaints Objective: Vital Signs Temp Pulse Resp BP Pulse Ox 36.7 C 90 16 89/56 L 93 04/14/18 07:04 04/14/18 07:04 04/14/18 07:04 04/14/18 07:04 04/14/18 07:04 Laboratory Results 04/05/18 04:38 04/05/18 04:38 06/02/18 06/03/18 06/04/18 05:59 05:59 05:59 Intake Total 0 Balance 0 patient refuses examination ICD10 Worksheet Patient Problems: Problems Problem Status Onset Dementia Acute Failure to thrive in adult Acute
--- NOTE | 2018-06-03 15:52 | ASMTCMCOM ---
CM Note CM Note Notes: Spoke w/Leonarda [phone] (c) [phone] (O) from [place], she cannot accept pt until sister has the official guardianship paperwork from the court that states her as the guardian. Unclear how long this will take. Za from [facility] [phone] will review pt when we have a current set of hematology and chemistry labs plus a current set of vitals. aware of issues. Pt's sister Nayana: [phone] DC Plan: TBD Date Signed: 06/03/2018 03:51 PM Electronically Signed By:Romana Osborn RN
--- NOTE | 2018-06-03 16:56 | ASMTCMCOM ---
CM Note CM Note Notes: Discussed case with Kojo Blunt, Susan Hutton, and Legal Services. The plan is for Susan Hutton and Legal to touch base on Wednesday. Legal may be able to contact the court to inquire about expediting the guardianship. At this time, administration would like to hold off on physical/chemical restraining (to obtain blood work for [facility]) until they are able to contact court system and rule-out [facility]). CM will continue to follow. Plan: [facility] is approved. Date Signed: 06/03/2018 04:55 PM Electronically Signed By:Jessica Zuniga RN
[2018-06-04] MEDS: POLYETHYLENE GLYCOL 3350 17 GM PKT PO SCH (11:55)
[2018-06-04] MEDS: PANTOPRAZOLE SODIUM 40 MG TAB PO SCH ×2 (11:55→20:04)
[2018-06-04] MEDS: FERROUS SULFATE 325 MG TAB PO SCH (11:55)
[2018-06-04] MEDS: ENOXAPARIN 40 MG/0.4 ML SYR SC SCH (11:55)
[2018-06-04] MEDS: SUCRALFATE 1 GM TAB PO SCH ×3 (11:56→20:04)
--- NOTE | 2018-06-04 20:37 | HOSPPROG ---
Hospitalist Progress Note Assessment/Plan: 57 year old female with pmh of polysubstance abuse, Olliers disease, dementia, admitted in early March after being found down. Medically stabilized but struggling with disposition because patient is not competent to make decisions, and has no medical proxy. Son refuses to be MDPOA, and current goal is for sister Nayana to become emergency proxy and then place patient in locked inpatient SNF. Patients sister submitted proxy paperwork, and at this point inpatient unit will take patient if we can draw labs, but patient refusing. awaiting proxy paperwork to clear and then we can get permission to draw blood from proxy, and if normal discharge patient to rehab. Chronic metabolic encephalopathy: vascular dementia per imaging here and prior OSH records. chart extensively reviewed, and case discussed with CM and psych. psych consulted. case discussed with son and psychiatry. patient with long standing hx of drug abuse, family hx of dementia. Discussed case with son Jake who says that she has hx of dementia and a strong family history of dementia. -TSH, B12 WNL HIV, RPR negative. Moderate atrophy on CTH -on medical hold -psychiatry eval consistent with FTD. Vascular dementia: -Neurology evaluated and agree that moderated atrophy and h/o CVA suggest vascular or other type of dementia -Would benefit from safe, supervised unit. Plan for sister to become proxy, and then transfer to a locked inpatient SNF Spiculated lung mass: concern for malignancy with adenopathy. Patient not candidate for treatment given her progressive dementia. Hypertension: Not on anything, refusing examination, BP checks of medications Bipolar I disorder: reviewed OSH records. Admitted to [facility] 01/15 with paranoia and decompensated bipolar -Dr. Bustos evaluated earlier in stay and stopped Elavil, Duloxetine, psych reconsulted who felt best plan is to get patient transferred to SNF, and no need to force medications on patient. Iron deficiency anemia: patient refusing lab sticks, vitals or any other exam. Type 2 diabetes: diet-controlled, as far as we can tell as she refuses any finger sticks or lab examinations. GERD: patient refuses any medications COPD- stable, not requiring oxygen and refusing medications. history of nephrectomy disp: I had a long decision with her sister Nayana at [phone] regarding Mayte. She has agreed to complete the emergency proxy paperwork. Once that is completed plan to work with CM to place patient in SNF unit. Will continue working with Susan Gilmore on this. Mayte has been determined to not be competent and is a harm to herself or others. Continue medical hold, pending disposition with assitance of CM. Subjective: patient somewhat more pleasant today. denied any pain or concerns. Objective: Vital Signs Temp Pulse Resp BP Pulse Ox 36.7 C 90 16 89/56 L 93 04/14/18 07:04 04/14/18 07:04 04/14/18 07:04 04/14/18 07:04 04/14/18 07:04 Laboratory Results 04/05/18 04:38 04/05/18 04:38 06/03/18 06/04/18 06/05/18 05:59 05:59 05:59 Intake Total 0 0 0 Balance 0 0 0 Physical Exam: patient refuses examination ICD10 Worksheet Patient Problems: Problems Problem Status Onset Dementia Acute Failure to thrive in adult Acute
[2018-06-05] MEDS: PANTOPRAZOLE SODIUM 40 MG TAB PO SCH ×2 (12:50→21:00)
[2018-06-05] MEDS: ENOXAPARIN 40 MG/0.4 ML SYR SC SCH (12:50)
[2018-06-05] MEDS: SUCRALFATE 1 GM TAB PO SCH ×4 (12:50→21:00)
[2018-06-05] MEDS: POLYETHYLENE GLYCOL 3350 17 GM PKT PO SCH (12:51)
[2018-06-05] MEDS: FERROUS SULFATE 325 MG TAB PO SCH (12:51)
--- NOTE | 2018-06-05 16:04 | HOSPPROG ---
Hospitalist Progress Note Assessment/Plan: 57 year old female with pmh of polysubstance abuse, Olliers disease, dementia, admitted in early March after being found down. Medically stabilized but struggling with disposition because patient is not competent to make decisions, and has no medical proxy. Son refuses to be MDPOA, and current goal is for sister Nayana to become emergency proxy and then place patient in locked inpatient SNF. Patients sister submitted proxy paperwork, and at this point inpatient unit will take patient if we can draw labs, but patient refusing. awaiting proxy paperwork to clear and then we can get permission to draw blood from proxy, and if normal discharge patient to rehab. Chronic metabolic encephalopathy: vascular dementia per imaging here and prior OSH records. chart extensively reviewed, and case discussed with CM and psych. psych consulted. case discussed with son and psychiatry. patient with long standing hx of drug abuse, family hx of dementia. Discussed case with son Jake who says that she has hx of dementia and a strong family history of dementia. -TSH, B12 WNL HIV, RPR negative. Moderate atrophy on CTH -on medical hold -psychiatry eval consistent with FTD. Vascular dementia: -Neurology evaluated and agree that moderated atrophy and h/o CVA suggest vascular or other type of dementia -Would benefit from safe, supervised unit. Plan for sister to become proxy, and then transfer to a locked inpatient SNF Spiculated lung mass: concern for malignancy with adenopathy. Patient not candidate for treatment given her progressive dementia. Hypertension: Not on anything, refusing examination, BP checks of medications Bipolar I disorder: reviewed OSH records. Admitted to [facility] 01/15 with paranoia and decompensated bipolar -Dr. Bustos evaluated earlier in stay and stopped Elavil, Duloxetine, psych reconsulted who felt best plan is to get patient transferred to SNF, and no need to force medications on patient. Iron deficiency anemia: patient refusing lab sticks, vitals or any other exam. Type 2 diabetes: diet-controlled, as far as we can tell as she refuses any finger sticks or lab examinations. GERD: patient refuses any medications COPD- stable, not requiring oxygen and refusing medications. history of nephrectomy disp: I had a long decision with her sister Nayana at [phone] regarding Mayte. She has agreed to complete the emergency proxy paperwork. Once that is completed plan to work with CM to place patient in SNF unit. Will continue working with Susan Gilmore on this. Mayte has been determined to not be competent and is a harm to herself or others. Continue medical hold, pending disposition with assitance of CM. Subjective: patient in a fairly bad mood today. called nurse connie, refused to speak to me. did not seem in pain. Objective: Vital Signs Temp Pulse Resp BP Pulse Ox 36.7 C 90 16 89/56 L 93 04/14/18 07:04 04/14/18 07:04 04/14/18 07:04 04/14/18 07:04 04/14/18 07:04 Laboratory Results 04/05/18 04:38 04/05/18 04:38 06/04/18 06/05/18 06/06/18 05:59 05:59 05:59 Intake Total 0 0 Balance 0 0 Physical Exam: refused any examination ICD10 Worksheet Patient Problems: Problems Problem Status Onset Dementia Acute Failure to thrive in adult Acute
[2018-06-06] MEDS: SUCRALFATE 1 GM TAB PO SCH ×4 (06:30→19:38)
[2018-06-06] MEDS: PANTOPRAZOLE SODIUM 40 MG TAB PO SCH ×2 (09:54→19:38)
[2018-06-06] MEDS: ENOXAPARIN 40 MG/0.4 ML SYR SC SCH (09:54)
[2018-06-06] MEDS: FERROUS SULFATE 325 MG TAB PO SCH (09:54)
[2018-06-06] MEDS: POLYETHYLENE GLYCOL 3350 17 GM PKT PO SCH (09:54)
--- NOTE | 2018-06-06 16:26 | HOSPPROG ---
Hospitalist Progress Note Assessment/Plan: 57 year old female with pmh of polysubstance abuse, Olliers disease, dementia, admitted in early March after being found down. Medically stabilized but struggling with disposition because patient is not competent to make decisions, and has no medical proxy. Son refuses to be MDPOA, and current goal is for sister Nayana to become emergency proxy and then place patient in locked inpatient SNF. Patients sister submitted proxy paperwork, and at this point inpatient unit will take patient if we can draw labs, but patient refusing. awaiting proxy paperwork to clear and then we can get permission to draw blood from proxy, and if normal discharge patient to rehab. Chronic metabolic encephalopathy: vascular dementia per imaging here and prior OSH records. chart extensively reviewed, and case discussed with CM and psych. psych consulted. case discussed with son and psychiatry. patient with long standing hx of drug abuse, family hx of dementia. Discussed case with son Jake who says that she has hx of dementia and a strong family history of dementia. -TSH, B12 WNL HIV, RPR negative. Moderate atrophy on CTH -on medical hold -psychiatry eval consistent with FTD. Vascular dementia: -Neurology evaluated and agree that moderated atrophy and h/o CVA suggest vascular or other type of dementia -Would benefit from safe, supervised unit. Plan for sister to become proxy, and then transfer to a locked inpatient SNF Spiculated lung mass: concern for malignancy with adenopathy. Patient not candidate for treatment given her progressive dementia. Hypertension: Not on anything, refusing examination, BP checks of medications Bipolar I disorder: reviewed OSH records. Admitted to [facility] 01/15 with paranoia and decompensated bipolar -Dr. Bustos evaluated earlier in stay and stopped Elavil, Duloxetine, psych reconsulted who felt best plan is to get patient transferred to SNF, and no need to force medications on patient. Iron deficiency anemia: patient refusing lab sticks, vitals or any other exam. Type 2 diabetes: diet-controlled, as far as we can tell as she refuses any finger sticks or lab examinations. GERD: patient refuses any medications COPD- stable, not requiring oxygen and refusing medications. history of nephrectomy disp: I had a long decision with her sister Nayana at [phone] regarding Mayte. She has agreed to complete the emergency proxy paperwork. Once that is completed plan to work with CM to place patient in SNF unit. Will continue working with Susan Gilmore on this. Mayte has been determined to not be competent and is a harm to herself or others. Continue medical hold, pending disposition with assitance of CM. Subjective: no complaints today. eating well, no pain, and no other concerns. Objective: Vital Signs Temp Pulse Resp BP Pulse Ox 36.7 C 90 16 89/56 L 93 04/14/18 07:04 04/14/18 07:04 04/14/18 07:04 04/14/18 07:04 04/14/18 07:04 Laboratory Results 04/05/18 04:38 04/05/18 04:38 06/05/18 06/06/18 06/07/18 05:59 05:59 05:59 Intake Total 0 Balance 0 Physical Exam: patient refused examination ICD10 Worksheet Patient Problems: Problems Problem Status Onset Dementia Acute Failure to thrive in adult Acute
[2018-06-07] MEDS: SUCRALFATE 1 GM TAB PO SCH ×3 (05:38→20:37)
[2018-06-07] MEDS: PANTOPRAZOLE SODIUM 40 MG TAB PO SCH ×2 (08:56→20:37)
[2018-06-07] MEDS: FERROUS SULFATE 325 MG TAB PO SCH (08:56)
[2018-06-07] MEDS: POLYETHYLENE GLYCOL 3350 17 GM PKT PO SCH (08:56)
[2018-06-07] MEDS: ENOXAPARIN 40 MG/0.4 ML SYR SC SCH (08:56)
--- NOTE | 2018-06-07 14:49 | ASMTCMCOM ---
CM Note CM Note Notes: NATALIA has been collaborating w/ Susan Mendoza. Susan called the courts yesterday and was informed that pts emergency guardianship could not be granted at this time. Susan will see if [facility] legal can see if they can expedite guardianship. CM spoke to pts sister, Nayana (P#: [phone]). Nayana reports that permanent guardianship will become effective 07/07 at 9AM. Nayana reports that pts case # is [id number]. Nayana reports that she spoke to Kanu Fraser with the guardianship department (P#: [phone]). Nayana reports that the courts will need to come out to evaluate her. Nayana reports that Kanu told her that pt needs to be served paperwork stating that Nayana will be guardian and reports that staff at the hospital can serve her the paperwork. [facility] is requesting final guardianship paperwork before they can accept. Nayana has been speaking to Leonarda at [facility] (P#: [phone]). NATALIA to follow. Plan: TBD Date Signed: 06/07/2018 02:49 PM Electronically Signed By:SILVIO Del Real
--- NOTE | 2018-06-07 18:08 | HOSPPROG ---
Hospitalist Progress Note Assessment/Plan: * Found down * Vascular dementia -patient does not have decisional capacity -continue medical detainer -await POLeroy - medical proxy * Spiculated lung mass -refuses all medical intervention -not great candidate for aggressive intervention given advanced dementia * Axillary adenopathy -may need biopsy, but not agreeable at this time * Bipolar -off psych meds per Dr. Bustos * DM II - diet -off metformin - glucose okay Subjective: Tells me she is doctor, therefore doesn't need a doctor Objective: Vital Signs Temp Pulse Resp BP Pulse Ox 36.7 C 90 16 89/56 L 93 04/14/18 07:04 04/14/18 07:04 04/14/18 07:04 04/14/18 07:04 04/14/18 07:04 Laboratory Results 04/05/18 04:38 04/05/18 04:38 CT chest - spiculated lung mass, axillary adenopathy CXR viewed, my personal interpretation is - lung mass seen on right - Physical Exam Constitutional: no apparent distress, appears nourished, not in pain Cardiovascular: regular rate and rhythym, no murmur, rub, or gallop Respiratory: no respiratory distress, no rales or rhonchi, clear to auscultation Gastrointestinal: normoactive bowel sounds, soft, non-tender abdomen, no palpable masses Skin: no rashes or abrasions, no fluctuance, no induration Neurologic: No AAOx3, No weakness Psychiatric: encephalopathic, poor insight, poor judgement, poor memory, No interacting appropriately ICD10 Worksheet Patient Problems: Problems Problem Status Onset Dementia Acute Failure to thrive in adult Acute
[2018-06-08] MEDS: PANTOPRAZOLE SODIUM 40 MG TAB PO SCH ×2 (08:42→20:36)
[2018-06-08] MEDS: FERROUS SULFATE 325 MG TAB PO SCH (08:42)
[2018-06-08] MEDS: POLYETHYLENE GLYCOL 3350 17 GM PKT PO SCH (08:42)
[2018-06-08] MEDS: ENOXAPARIN 40 MG/0.4 ML SYR SC SCH (08:42)
--- NOTE | 2018-06-08 17:30 | HOSPPROG ---
Hospitalist Progress Note Assessment/Plan: * Found down * Vascular dementia -patient does not have decisional capacity -continue medical detainer -await MD ALFRED - medical proxy * Spiculated lung mass -refuses all medical intervention -not great candidate for aggressive intervention given advanced dementia * Axillary adenopathy -may need biopsy, but not agreeable at this time * Bipolar -off psych meds per Dr. Bustos * DM II - diet -off metformin - glucose okay Subjective: no new complaints Objective: Vital Signs Temp Pulse Resp BP Pulse Ox 36.7 C 90 16 89/56 L 93 04/14/18 07:04 04/14/18 07:04 04/14/18 07:04 04/14/18 07:04 04/14/18 07:04 Laboratory Results 04/05/18 04:38 04/05/18 04:38 06/07/18 06/08/18 06/09/18 05:59 05:59 05:59 Intake Total 0 Balance 0 - Physical Exam Constitutional: no apparent distress, appears nourished, not in pain Cardiovascular: No edema Respiratory: no respiratory distress Gastrointestinal: soft, non-tender abdomen Skin: warm, No rash Neurologic: No AAOx3 Psychiatric: encephalopathic, No interacting appropriately ICD10 Worksheet Patient Problems: Problems Problem Status Onset Dementia Acute Failure to thrive in adult Acute
[2018-06-08] MEDS: SUCRALFATE 1 GM TAB PO SCH ×2 (18:21→20:36)
[2018-06-09] MEDS: FERROUS SULFATE 325 MG TAB PO SCH (11:07)
[2018-06-09] MEDS: ENOXAPARIN 40 MG/0.4 ML SYR SC SCH (11:07)
[2018-06-09] MEDS: PANTOPRAZOLE SODIUM 40 MG TAB PO SCH (11:09)
[2018-06-09] MEDS: POLYETHYLENE GLYCOL 3350 17 GM PKT PO SCH (11:09)
[2018-06-09] MEDS: SUCRALFATE 1 GM TAB PO SCH ×2 (11:09→11:42)
--- NOTE | 2018-06-09 14:36 | HOSPPROG ---
Hospitalist Progress Note Assessment/Plan: I had a prolonged conversation with Mayte this morning. I asked her if she understood why she was here and what her goal was for when she left. She was able to tell me that she was found in a ditch. She was able to relay many details regarding events with her son that I confirmed in the chart. She knew it was May 2018. She refused to discuss any discharge plan other than home with her son. She refused to acknowledge that her son did not want to be involved in her care in any way. She became angered when I suggested that he knew she was here and refusing to accept her into his home to live. I have spoken to nursing who have been caring for her for months. She is fully independent in the room. She watches TV all day. She eats. She comes to the nursing station and gets herself drinks. She is fully independent with all ADL. She has been witnessed to make phone call with lengthy phone trees and keep on task to manage her affairs while she is here. As long as everyone leaves her alone, we see not strange behaviors. Only when she is challenged does she become aggressive, so that she may be left alone again. After prolonged observation, if appears that she is fully aware of her environment and able to make decisions for herself. She has refused vital signs since 04/14. She has refused labs since admission. She has refused biopsy of her enlarged axillary lymph nodes. I have not cared for her earlier in this hospitalization when she was determined not to have decisional capacity , but my assessment today is that she does have decisional capacity. Perhaps she has improved during her stay with us. She is clearly medically stable for discharge. Case management to arrange hotel room upon discharge. She has demonstrated here that she is fully functional in this level of support, as nursing has not been assisting her in any way here. [facility]. Lengthy multi-disc meeting had regarding her case including Ethics (Louisa Weathers), Susan Mendoza (CM director), Romana Tran (psych), Romana Owens (CM) and charge nurse Dionna. All are in agreement that patient is decisional at this time and may be discharged to hotel. * Found down * Vascular dementia - mild -patient does have decisional capacity -MD ALFRED - medical proxy - court date in Jul but not deemed to be an emergency case * Ollier's disease with chronic bone pain -h/o narcotic and benzo abuse in past - has not asked for them here * Spiculated lung mass -repeat lung CT 3 months if she desires * Axillary adenopathy -needs biopsy if she ever agrees to it * Bipolar -off psych meds per Dr. Bustos * DM II - diet -off metformin - glucose okay Objective: Vital Signs Temp Pulse Resp BP Pulse Ox 36.7 C 90 16 89/56 L 93 04/14/18 07:04 04/14/18 07:04 04/14/18 07:04 04/14/18 07:04 04/14/18 07:04 Laboratory Results 04/05/18 04:38 04/05/18 04:38 06/08/18 06/09/18 06/10/18 05:59 05:59 05:59 Intake Total 0 0 Balance 0 0 - Time Spent With Patient Time Spent with Patient: greater than 35 minutes Time Spent with Patient: Greater than 35 minutes spent on this patients care, greater than 50% of time spent counseling, educating, and coordinating care regarding the above mentioned plan. Physical Exam: Patient is awake, alert and sitting in bed. I initially approached her with easy non-confrontational questions and she appropriately and calmly answered all questions. After I started probing deeper into her relationship with her son and her sister, she eventually got suspicious of my line of questioning and kicked me out of the room. She was able to pickle solution maker on inconsistencies what I was saying and called me on it (for example, I initially told her that her son disconnected his phone number, but later when I said that we had talked to her son, she called me on it saying "how could you have talked to him if his phone is disconnected") - Physical Exam Constitutional: no apparent distress, other (awake, alert) Cardiovascular: No edema Respiratory: no respiratory distress Skin: No rash Neurologic: AAOx3, No weakness Psychiatric: interacting appropriately (until she got angry), thought process linear, No encephalopathic, No anxious, No depressed, No flat affect, No agitated, No poor insight, No poor judgement, No poor memory ICD10 Worksheet Patient Problems: Problems Problem Status Onset Dementia Acute Failure to thrive in adult Acute
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
== END 2018-06-09 17:02 | disposition home or self-care (01) | DRG 92 ==
LOC: F3E 16:14
PROVIDERS: ADMIT Internal Medicine; ATTEND Internal Medicine
DX: G92 Toxic encephalopathy (principal); F01.51 Vascular dementia, unspecified severity, with behavioral disturbance; F31.9 Bipolar disorder, unspecified; R91.8 Other nonspecific abnormal finding of lung field; R59.0 Localized enlarged lymph nodes; E11.9 Type 2 diabetes mellitus without complications; G47.30 Sleep apnea, unspecified; Q78.4 Enchondromatosis; G89.29 Other chronic pain; K21.9 Gastro-esophageal reflux disease without esophagitis; J44.9 Chronic obstructive pulmonary disease, unspecified; E78.5 Hyperlipidemia, unspecified; D50.9 Iron deficiency anemia, unspecified; Z90.5 Acquired absence of kidney; Z51.5 Encounter for palliative care; Z23 Encounter for immunization
CPT/HCPCS: 80305; 82607-90; 92507-GN; 92523-GN; 97165-GO; G0008; G0480; J1650; J2916; Q9967

== ENCOUNTER 2018-06-14 13:37 | Emergency (ER) | payer OTHER, MEDICAID ==
[2018-06-14] MEDS ORDERED: NS 500 ML IV ONE (13:45)
[2018-06-14 14:44] LABS: PLATELET COUNT 494 10^3/uL (150-400)
[2018-06-14] MEDS ORDERED: NS 1,000 ML IV ONE (14:45)
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
[2018-06-14 17:05] VITALS: BP 138/81
--- NOTE | 2018-06-14 20:18 | ASMTCMCOM ---
CM Note CM Note Notes: Pt presented to the ED via EMS for feeling like she was going to pass out. Please see CM DC Summary 06/10/18 for additional information Pt requesting a cab to the [facility]. Alerted Susan Mendoza, Director of Case Mgmt, of pt being in the ED due to Susan's past various involvement w/pt's case while pt was admitted at [facility] from 04/03/18-06/10/18 and her outpatient followup involvement since the discharge. Susan came and visited pt in the ED, provided clothes and the Meals on Wheels meals that were still here at the hospital for the pt. This CM provided DC transportation via cab voucher. Pt was discharged to follow up as recommended with [facility], [facility], [facility], [facility], etc. Pt calm, cooperative and agreeable to discharge plan. CM available for further assistance if needed. Date Signed: 06/14/2018 08:17 PM Electronically Signed By:Madiha Ponce RN
--- NOTE | 2018-06-14 20:55 | CPEKG ---
Test Reason : OPEN Blood Pressure : / mmHG Vent. Rate : 125 BPM Atrial Rate : 126 BPM P-R Int : 161 ms QRS Dur : 075 ms QT Int : 302 ms P-R-T Axes : 030 028 055 degrees QTc Int : 436 ms Sinus tachycardia Confirmed by Tello Portillo ([id number]) on 06/14/2018 8:54:27 PM Referred By: Confirmed By:Tello Portillo
== END 2018-06-14 17:05 | disposition home or self-care (01) ==
LOC: EDUNIT#
DX: R55 Syncope and collapse (principal); G89.29 Other chronic pain
CPT/HCPCS: G0480

== ENCOUNTER 2018-06-15 08:41 | Emergency (ER) | payer OTHER, MEDICAID ==
--- NOTE | 2018-06-15 09:50 | EDPHY ---
H & P Stated Complaint: CP Time Seen by Provider: 06/15/18 08:50 HPI/ROS: CHIEF COMPLAINT: Chest pain HISTORY OF PRESENT ILLNESS: The patient presents to the ED from the homeless long term with complaints of chest pain. The patient reports that her symptoms began in the evening. The patient was in the emergency department yesterday after a episode of syncope. She had recently been hospitalized here [facility] for nearly 2 months secondary to encephalopathy and possible early dementia. The patient was ultimately discharged to the street and is currently living at the homeless long term. 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 In the ED the patient tells me she has a history of myocardial infarction with stenting performed at an outside hospital approximately 4 years ago. The patient does complain of some right calf pain. She endorses symptoms of mild pleuritic chest pain. She denies any fever, cough or congestion. She denies additional acute complaints. REVIEW OF SYSTEMS: A comprehensive 10 point review of systems is otherwise negative aside from elements mentioned in the history of present illness. Source: Patient Exam Limitations: No limitations - Personal History Current Tetanus/Diphtheria Vaccine: Yes Current Tetanus Diphtheria and Acellular Pertussis (TDAP): Yes - Medical/Surgical History Hx Asthma: No Hx Chronic Respiratory Disease: No Hx Diabetes: No Hx Cardiac Disease: Yes Hx Renal Disease: No Hx Cirrhosis: No Hx Alcoholism: No Hx HIV/AIDS: No Hx Splenectomy or Spleen Trauma: No Other PMH: olliers condition (bone disease), stroke, RI - Social History Smoking Status: Heavy smoker - Physical Exam Exam: General Appearance: Disheveled female, no acute distress Eyes: Pupils equal and round no pallor or injection ENT, Mouth: Dry mucous membranes Respiratory: There are no retractions, lungs are clear to auscultation Cardiovascular: Tachycardic Gastrointestinal: Abdomen is soft and nontender, no masses, bowel sounds normal Neurological: A&O, normal motor function, normal sensory exam, normal cranial nerves Skin: Warm and dry, no rashes Musculoskeletal: Neck is supple nontender Extremities: symmetrical, full range of motion Constitutional: Initial Vital Signs Temperature (C) 36.8 C 06/15/18 08:45 Heart Rate 120 H 06/15/18 08:45 Respiratory Rate 20 06/15/18 08:45 Blood Pressure 127/92 H 06/15/18 08:45 O2 Sat (%) 98 06/15/18 08:45 O2 Delivery Mode Room Air Allergies/Adverse Reactions: No Known Allergies Allergy (Unverified 06/14/18 13:48) Home Medications: Medication Instructions Recorded NK [No Known Home Meds] 06/14/18 Medical Decision Making - Diagnostics EKG Interpretation: EKG: Complete interpretation has been separately recorded in the [facility] archive. Summary impression: Sinus rhythm, rate 106 Imaging Results: CT pulmonary angiogram: Stable pulmonary nodules are noted, no evidence of PE or aortic dissection present. ED Course/Re-evaluation: The patient presents to the ED with a 1 day history of chest pain. The patient is complicated in the sense that she has a likely underlying personality disorder. She currently is homeless. She has a recent prolonged hospitalization. The patient was taken for CT pulmonary angiogram which demonstrates no evidence of PE. She is stable pulmonary nodules. Patient's EKG demonstrates a sinus tachycardia without ischemic changes. Her troponin is normal. This point time I have a low suspicion for acute coronary syndrome. The patient has ruled out for myocardial infarction. I do feel it is reasonable to have her follow up with Cardiology as an outpatient. Patient has been instructed to return to the ED for markedly worsening symptoms or other concerns. Differential Diagnosis: Differential diagnosis considered includes acute coronary syndrome, pulmonary embolism, pneumonia, aortic dissection - Data Points Laboratory Results: 06/15/18 09:02 POC Troponin I 0.00 ng/mL ng/mL (0.00-0.08) Point of Care Test Results: Chemistry 06/15/18 09:02 POC Troponin I 0.00 ng/mL ng/mL (0.00-0.08) Departure - Departure Disposition: Home, Routine, Self-Care Clinical Impression: Chest pain Condition: Good Instructions: Chest Pain (DC) Additional Instructions: 1. Based upon the testing done in the Emergency Department today we see no evidence of a heart attack. 2. We are unable to fully exclude coronary artery disease based upon the testing available in the Emergency Department. 3. For this reason, we would like you to be seen by cardiology for consideration of additional testing within the next 3 days. 4. Please contact the mechanical commissioning engineer you have been referred to schedule this appointment as soon as possible. Their offices are typically open from 8:30am- 5pm M-F. 5. Please return to the Emergency Department immediately for any recurrent chest pain, difficulty breathing or other concerns. Referrals: Hazel,Hetal G, MD [Medical Doctor] - As per Instructions
[2018-06-15] MEDS ORDERED: IOPAMIDOL (ISOVUE 370) 100 ML BTL IV ONE (09:56)
[2018-06-15 10:07] VITALS: BP 114/86
--- NOTE | 2018-06-15 10:17 | CPEKG ---
Test Reason : OPEN Blood Pressure : / mmHG Vent. Rate : 106 BPM Atrial Rate : 106 BPM P-R Int : 134 ms QRS Dur : 080 ms QT Int : 335 ms P-R-T Axes : 034 055 057 degrees QTc Int : 445 ms Sinus tachycardia Confirmed by Paulo Saenz ([id number]) on 06/15/2018 10:16:51 AM Referred By: Confirmed By:Paulo Saenz
== END 2018-06-15 11:40 | disposition home or self-care (01) ==
LOC: EDUNIT#
DX: R07.9 Chest pain, unspecified (principal); F17.200 Nicotine dependence, unspecified, uncomplicated
CPT/HCPCS: 71275; 93005; 99285; Q9967; 84484-ER

== ENCOUNTER 2018-06-15 21:40 | Emergency (ER) | payer OTHER, MEDICAID ==
[2018-06-15 21:50] VITALS: BP 121/91
--- NOTE | 2018-06-15 21:55 | EDPHY ---
H & P Stated Complaint: kirk case, was here early, homeless Time Seen by Provider: 06/15/18 21:55 HPI/ROS: HPI CHIEF COMPLAINT: "Pain all over body" HISTORY OF PRESENT ILLNESS: 58-year-old female here earlier today, presents back to the emergency room with pain all over her body. Patient denies any chest pain or shortness of breath however was seen in the emergency room earlier for chest pain had a negative evaluation including a negative CT angio and negative troponin. The patient arrives back to the emergency room stating she has diffuse pain all over her body. She states that she suffers from chronic pain all over body and feels very similar this is not new for her. She describes the pain is achy and burning throughout her entire body extremities. No worsening chest pain. No shortness of breath no pleuritic pain no fever. She is homeless. Staying at a current homeless long term. Past Medical History: Significant medical history for coronary artery disease with stent, encephalopathy, early dementia, personality disorder, olliers disease Past Surgical History: No recent surgical history Social History: Homeless. Staying at a local long term. Family History: Noncontributory ROS REVIEW OF SYSTEMS: 10 Systems were reviewed and negative with the exception of the elements mentioned in the history of present illness. Exam Constitutional triage nursing summary reviewed, vital signs reviewed, awake/ alert. Eyes normal conjunctivae and sclera, EOMI, PERRLA. HENT normal inspection, atraumatic, moist mucus membranes, no epistaxis, neck supple/ no meningismus, no raccoon eyes. Respiratory clear to auscultation bilaterally, normal breath sounds, no respiratory distress, no wheezing. Cardiovascular rate normal, regular rhythm, no murmur, no edema, distal pulses normal. Gastrointestinal soft, non-tender, no rebound, no guarding, normal bowel sounds, no distension, no pulsatile mass. Genitourinary no CVA tenderness. Musculoskeletal no midline vertebral tenderness, full range of motion, no calf swelling, no tenderness of extremities, no meningismus, good pulses, neurovascularly intact. Skin pink, warm, & dry, no rash, skin atraumatic. Neurologic awake, alert and oriented x 3, AAOx3, moves all 4 extremities equally, motor intact, sensory intact, CN II-XII intact, normal cerebellar, normal vision, normal speech. Psychiatric normal mood/affect. Heme/Lymph/Immune no lymphadenopathy. Differential Diagnosis: Includes but is not limited to: Electrolyte disturbance, dehydration, influenza. Medical Decision Making: Plan for this patient IV establishment, blood draw, influenza, re-evaluation after IV fluids. Re-evaluation: EKG interpretation by me on record in [employer] system. Impression time of EKG 2216, sinus tach 106, LVH, without any signs of acute ischemia. And similar to previous EKGs. Specifically same morphology as 04/03/2018. Troponin 0.01 Labs reviewed. No high white count. Electrolytes are appropriate. 2332: Patient here in emergency room sleeping. Denies chest pain or shortness of breath the complain of entire body pain. Influenza test is negative. Her white blood cell count is normal and not elevated electrolytes are appropriate. Vital signs are stable. Home re-examination she is sleeping. No acute Distress. EKG is unchanged from previous. Troponin negative. No chest pain or shortness of breath. Nontoxic appearing I feel comfortable discharging her. Return precautions discussed with her. She understands return emergency room she has worsening symptoms questions or concerns. I do recommend she follows up with her primary care doctor Source: Patient - Personal History Current Tetanus Diphtheria and Acellular Pertussis (TDAP): Unsure - Medical/Surgical History Hx Asthma: No Hx Chronic Respiratory Disease: No Hx Diabetes: No Hx Cardiac Disease: Yes Hx Renal Disease: No Hx Cirrhosis: No Hx Alcoholism: No Hx HIV/AIDS: No Hx Splenectomy or Spleen Trauma: No Other PMH: olliers condition (bone disease), stroke, [place] - Social History Smoking Status: Heavy smoker Constitutional: Initial Vital Signs Temperature (C) 36.4 C 06/15/18 21:45 Heart Rate 116 H 06/15/18 21:45 Respiratory Rate 20 06/15/18 21:45 Blood Pressure 121/91 H 06/15/18 21:45 O2 Sat (%) 98 06/15/18 21:45 O2 Delivery Mode Room Air Allergies/Adverse Reactions: No Known Allergies Allergy (Unverified 06/14/18 13:48) Home Medications: Medication Instructions Recorded NK [No Known Home Meds] 06/14/18 Medical Decision Making - Data Points Laboratory Results: Laboratory Results 06/15/18 22:16 06/15/18 22:16 01/16/19 01/16/19 01/16/19 22:50 22:22 22:16 WBC RBC Hgb Hct MCV MCH MCHC RDW Plt Count MPV Neut % (Auto) Lymph % (Auto) [place] % (Auto) Eos % (Auto) Baso % (Auto) Nucleat RBC Rel Count Absolute Neuts (auto) Absolute Lymphs (auto) Absolute Monos (auto) Absolute Eos (auto) Absolute Basos (auto) Absolute Nucleated RBC Immature Gran % Immature Gran # Sodium 140 mEq/L mEq/L (135-145) Potassium 3.8 mEq/L mEq/L (3.5-5.2) Chloride 107 mEq/L mEq/L (97-110) Carbon Dioxide 21 mEq/l L mEq/l (22-31) Anion Gap 12 mEq/L mEq/L (6-14) BUN 14 mg/dL mg/dL (7-23) Creatinine 0.7 mg/dL mg/dL (0.6-1.0) Estimated GFR > 60 Glucose 78 mg/dL mg/dL (70-100) Calcium 9.4 mg/dL mg/dL (8.5-10.4) Magnesium 1.7 mg/dL mg/dL (1.6-2.3) Total Bilirubin 0.7 mg/dL mg/dL (0.1-1.4) Conjugated Bilirubin 0.3 mg/dL mg/dL (0.0-0.5) Unconjugated Bilirubin 0.4 mg/dL mg/dL (0.0-1.1) AST 20 IU/L IU/L (14-46) ALT 14 IU/L IU/L (9-52) Alkaline Phosphatase 85 IU/L IU/L (38-126) POC Troponin I 0.01 ng/mL ng/mL (0.00-0.08) Total Protein 7.7 g/dL g/dL (6.3-8.2) Albumin 3.7 g/dL g/dL (3.5-5.0) Nasal Influenza A PCR NEGATIVE FOR FLU A (NEGATIVE) Nasal Influenza B PCR NEGATIVE FOR FLU B (NEGATIVE) RSV (PCR) NEGATIVE FOR RSV (NEGATIVE) 06/15/18 22:16 WBC 9.10 10^3/uL 10^3/uL (3.80-9.50) RBC 5.38 10^6/uL H 10^6/uL (4.18-5.33) Hgb 12.6 g/dL g/dL (12.6-16.3) Hct 42.0 % % (38.0-47.0) MCV 78.1 fL L fL (81.5-99.8) MCH 23.4 pg L pg (27.9-34.1) MCHC 30.0 g/dL L g/dL (32.4-36.7) RDW 17.3 % H % (11.5-15.2) Plt Count 470 10^3/uL H 10^3/uL (150-400) MPV 9.1 fL fL (8.7-11.7) Neut % (Auto) 66.6 % % (39.3-74.2) Lymph % (Auto) 24.9 % % (15.0-45.0) [place] % (Auto) 5.4 % % (4.5-13.0) Eos % (Auto) 1.9 % % (0.6-7.6) Baso % (Auto) 0.8 % % (0.3-1.7) Nucleat RBC Rel Count 0.0 % % (0.0-0.2) Absolute Neuts (auto) 6.06 10^3/uL 10^3/uL (1.70-6.50) Absolute Lymphs (auto) 2.27 10^3/uL 10^3/uL (1.00-3.00) Absolute Monos (auto) 0.49 10^3/uL 10^3/uL (0.30-0.80) Absolute Eos (auto) 0.17 10^3/uL 10^3/uL (0.03-0.40) Absolute Basos (auto) 0.07 10^3/uL 10^3/uL (0.02-0.10) Absolute Nucleated RBC 0.00 10^3/uL 10^3/uL (0-0.01) Immature Gran % 0.4 % % (0.0-1.1) Immature Gran # 0.04 10^3/uL 10^3/uL (0.00-0.10) Sodium Potassium Chloride Carbon Dioxide Anion Gap BUN Creatinine Estimated GFR Glucose Calcium Magnesium Total Bilirubin Conjugated Bilirubin Unconjugated Bilirubin AST ALT Alkaline Phosphatase POC Troponin I Total Protein Albumin Nasal Influenza A PCR Nasal Influenza B PCR RSV (PCR) Medications Given: Discontinued Medications Sodium Chloride (Ns) 1,000 mls @ 0 mls/hr IV EDNOW ONE; Wide Open PRN Reason: Protocol Stop: 06/15/18 22:05 Last Admin: 06/15/18 22:32 Dose: 1,000 mls Point of Care Test Results: Chemistry 06/15/18 22:22 POC Troponin I 0.01 ng/mL ng/mL (0.00-0.08) Departure - Departure Disposition: Home, Routine, Self-Care Clinical Impression: Generalized weakness Condition: Good Instructions: Lightheadedness (ED) Additional Instructions: 1. Rest. 2. Stay well-hydrated 3. Return if worse. Referrals: NONE *PRIMARY CARE P,. [Primary Care Provider] - As per Instructions
[2018-06-15] MEDS ORDERED: NS 1,000 ML IV ONE (22:04)
[2018-06-15 22:29] LABS: PLATELET COUNT 470 10^3/uL (150-400)
--- NOTE | 2018-06-17 21:57 | CPEKG ---
Test Reason : OPEN Blood Pressure : / mmHG Vent. Rate : 106 BPM Atrial Rate : 106 BPM P-R Int : 137 ms QRS Dur : 078 ms QT Int : 333 ms P-R-T Axes : 018 048 057 degrees QTc Int : 443 ms Sinus tachycardia Consider left ventricular hypertrophy Confirmed by Harlan Jorgensen ([id number]) on 06/17/2018 9:56:53 PM Referred By: Confirmed By:Harlan Jorgensen
== END 2018-06-16 00:10 | disposition home or self-care (01) ==
DX: R53.1 Weakness (principal); E86.9 Volume depletion, unspecified; Z59.0 Homelessness; Z86.73 Personal history of transient ischemic attack (TIA), and cerebral infarction without residual deficits
CPT/HCPCS: 84484-ER

== ENCOUNTER 2018-06-19 09:15 | Emergency (ER) | payer OTHER, MEDICAID ==
--- NOTE | 2018-06-19 09:28 | EDPHY ---
H & P Time Seen by Provider: 06/19/18 09:26 HPI/ROS: CHIEF COMPLAINT: Generalized weakness HISTORY OF PRESENT ILLNESS: History from patient and EMS. [facility], had encounter with police, and then said she was weak and could not walk. She presents complaining of 4 days of a nonproductive cough and decreased appetite with generalized weakness. No incontinence or bowel or bladder symptoms, no numbness in legs, no back pain, no headache, no head trauma. Not better or worse with anything. She says the symptoms have been for 4 days. REVIEW OF SYSTEMS: Eye: no change in vision ENT: no sore throat Cardiac: no chest pain or syncope Pulmonary: Not short of breath, no hemoptysis Abdomen: No vomiting or abdominal pain, 1 day of mild diarrhea Musculoskeletal: Chronic bone pain, unchanged Skin: no rash Neuro: no headache Constitutional: no fever : no urinary symptoms A comprehensive 10 point review of systems is otherwise negative aside from elements mentioned in the history of present illness. PAST MEDICAL HISTORY: Discharge summary dated 06/09/2018 personally reviewed includes Ollier disease with chronic bone pain, type 2 diabetes, coronary disease, probable personality disorder. Bilateral knee and hip replacements. Social history: Currently homeless. General Appearance: Alert and conversant, cooperative. Eyes: No scleral icterus. ENT, Mouth: Slightly dry mucous membranes. Respiratory: Normal respiratory effort, breath sounds equal, lungs are clear to auscultation. No wheezing or rhonchi. Cardiovascular: Regular rate and rhythm. Gastrointestinal: Abdomen is soft and non tender. Neurological: Alert, face symmetric, normal motor and sensory in extremities. Toes downgoing bilaterally. Ankle reflexes 1+ and no clonus. She can lift each leg independently off the bed. Skin: Warm and dry, no rashes. Musculoskeletal: No peripheral edema. Psychiatric: Not agitated. Flat affect. Emergency Department course/MDM: Patient presents with weakness but normal neurologic examination, does not have high suspicion for stroke or spinal cord injury or Guillain-[place] or myelitis or cauda equina. With tachycardia more likely to be due to decreased oral intake from her 4 days of illness. She clinically is afebrile, no sore throat or headache, much more likely to be viral URI than influenza or pneumonia. Ate saltine crackers and drank oral fluids with decrease in heart rate. Smoking Status: Heavy smoker Constitutional: Initial Vital Signs Temperature (C) 36.6 C 06/19/18 09:20 Heart Rate 112 H 06/19/18 09:20 Respiratory Rate 16 06/19/18 09:20 Blood Pressure 109/63 06/19/18 09:20 O2 Sat (%) 96 06/19/18 09:20 O2 Delivery Mode Room Air Allergies/Adverse Reactions: No Known Allergies Allergy (Verified 06/19/18 09:20) Home Medications: Medication Instructions Recorded NK [No Known Home Meds] 06/14/18 Departure - Departure Disposition: Home, Routine, Self-Care Clinical Impression: URI (upper respiratory infection) Condition: Good Instructions: Upper Respiratory Infection (ED) Referrals: [facility],. [Clinic] - As per Instructions
[2018-06-19 10:15] VITALS: BP 119/84
--- NOTE | 2018-06-19 17:29 | ASMTCMCOM ---
CM Note CM Note Notes: Pt was seen in the ED earlier today for flu-like symptoms and discharged around 10am. Pt was in the [facility] ED waiting room all day and kept telling staff and security that she had called a cab. This CM called [facility] and spoke w/Chel, a [facility] Car Shunter. Chel says the pt stayed at the [facility] last night and then "snuck" over to the [facility] [place] side this morning and then refused to leave. [employer] was called and when they arrived on scene the pt said she couldn't walk and insisted that an ambulance transport her to the ED. This CM called [employer] and confirmed that they did not ticket the pt and "just gave her a warning." Chel states pt can return to stay at the [facility]. Pt has indeed completed Coordinated Entry and was been referred to the [facility] [place] but the pt has not completed their actual intake process yet. Spoke w/pt in the waiting area and offered to arrange a Medicaid cab for her to return to the [facility]; pt responded by asking "Can you call my son so he can come pick me up?" This CM said that per past CM reports and various notes, it seems her son Remy does not want to be contacted. This CM again offered to arrange a Medicaid cab for the pt to go to [facility] and she said "I guess so." Pt was provided w/her sister Nayana Crooks's phone # again just in case she had lost it. Pt took the piece of paper and stuffed it into her purse, stating "I know my sister's number." Pt was picked up by the Medicaid cab and transported to [facility]. PT strongly encouraged to follow up with [facility] CM and complete their intake process. Pt also encouraged to followup with [facility] and [facility]. CM available for further assistance if needed. Date Signed: 06/19/2018 05:28 PM Electronically Signed By:Madiha Ponce RN
== END 2018-06-19 10:15 | disposition home or self-care (01) ==
LOC: EDUNIT#
DX: J06.9 Acute upper respiratory infection, unspecified (principal); E11.9 Type 2 diabetes mellitus without complications; I25.10 Atherosclerotic heart disease of native coronary artery without angina pectoris; G89.29 Other chronic pain; Z96.643 Presence of artificial hip joint, bilateral; Z96.653 Presence of artificial knee joint, bilateral; Z59.0 Homelessness

== ENCOUNTER 2018-06-20 07:52 | Emergency (ER) | payer OTHER, MEDICAID ==
--- NOTE | 2018-06-20 07:55 | EDPHY ---
H & P Time Seen by Provider: 06/20/18 07:54 HPI/ROS: CHIEF COMPLAINT: Generalized weakness HISTORY OF PRESENT ILLNESS: History from patient and EMS. She was in the emergency department yesterday for the same complaint. Today EMS was called because as the nursing home was closing to residence for the day she said she was weak and could not walk. She was able to walk for EMS. She presents with additional symptoms of 5 days of a nonproductive cough and decreased appetite with generalized weakness. No incontinence or bowel or bladder symptoms, no numbness in legs, no back pain, no headache, no head trauma. Not better or worse with anything. She says the symptoms have been for 5 days. REVIEW OF SYSTEMS: Eye: no change in vision ENT: no sore throat Cardiac: no chest pain or syncope Pulmonary: Not short of breath, no hemoptysis Abdomen: No vomiting or abdominal pain, diarrhea improved Musculoskeletal: Chronic bone pain, unchanged Skin: no rash Neuro: no headache Constitutional: no fever : no urinary symptoms A comprehensive 10 point review of systems is otherwise negative aside from elements mentioned in the history of present illness. PAST MEDICAL HISTORY: Discharge summary dated 06/09/2018 personally reviewed includes Ollier disease with chronic bone pain, type 2 diabetes, coronary disease, probable personality disorder. Bilateral knee and hip replacements. Social history: Currently homeless. Tobacco smoker. General Appearance: Alert and conversant, cooperative. Eyes: No scleral icterus. ENT, Mouth: Slightly dry mucous membranes. Respiratory: Normal respiratory effort, breath sounds equal, lungs are clear to auscultation. No wheezing or rhonchi. Cardiovascular: Regular rate and rhythm. Gastrointestinal: Abdomen is soft and non tender. Neurological: Alert, face symmetric, normal motor and sensory in extremities. Toes downgoing bilaterally. Ankle reflexes 1+ and no clonus. She can lift each leg independently off the bed. Skin: Warm and dry, no rashes. Musculoskeletal: No peripheral edema. Psychiatric: Not agitated. Flat affect. Emergency Department course/MDM: Patient presents with weakness but normal neurologic examination, does not have high suspicion for stroke or spinal cord injury or Guillain-[place] or myelitis or cauda equina. Noted to be tachycardic. CBC chemistry, IV normal saline 1 L, EKG. 850:labs reviewed and patient re-evaluated, clinically mildly dehydrated. Patient ambulatory on discharge. Encouraged to increase oral fluid intake. Smoking Status: Heavy smoker Constitutional: Initial Vital Signs Temperature (C) 37.1 C 06/20/18 07:54 Heart Rate 114 H 06/20/18 07:54 Respiratory Rate 18 06/20/18 07:54 Blood Pressure 132/85 H 06/20/18 07:54 O2 Sat (%) 96 06/20/18 07:54 O2 Delivery Mode Room Air Allergies/Adverse Reactions: No Known Allergies Allergy (Verified 06/19/18 09:20) Home Medications: Medication Instructions Recorded NK [No Known Home Meds] 06/14/18 Medical Decision Making - Diagnostics EKG Interpretation: 12-lead EKG interpreted by me; official reading is in computer system. My interpretation is sinus rhythm 105 otherwise normal. - Data Points Laboratory Results: Laboratory Results 06/20/18 08:16 06/20/18 08:16 06/20/18 06/20/18 08:16 08:16 WBC 7.47 10^3/uL 10^3/uL (3.80-9.50) RBC 5.04 10^6/uL 10^6/uL (4.18-5.33) Hgb 12.0 g/dL L g/dL (12.6-16.3) Hct 38.1 % % (38.0-47.0) MCV 75.6 fL L fL (81.5-99.8) MCH 23.8 pg L pg (27.9-34.1) MCHC 31.5 g/dL L g/dL (32.4-36.7) RDW 18.6 % H % (11.5-15.2) Plt Count 416 10^3/uL H 10^3/uL (150-400) MPV 9.1 fL fL (8.7-11.7) Neut % (Auto) 70.9 % % (39.3-74.2) Lymph % (Auto) 18.9 % % (15.0-45.0) [place] % (Auto) 6.2 % % (4.5-13.0) Eos % (Auto) 2.9 % % (0.6-7.6) Baso % (Auto) 0.7 % % (0.3-1.7) Nucleat RBC Rel Count 0.0 % % (0.0-0.2) Absolute Neuts (auto) 5.30 10^3/uL 10^3/uL (1.70-6.50) Absolute Lymphs (auto) 1.41 10^3/uL 10^3/uL (1.00-3.00) Absolute Monos (auto) 0.46 10^3/uL 10^3/uL (0.30-0.80) Absolute Eos (auto) 0.22 10^3/uL 10^3/uL (0.03-0.40) Absolute Basos (auto) 0.05 10^3/uL 10^3/uL (0.02-0.10) Absolute Nucleated RBC 0.00 10^3/uL 10^3/uL (0-0.01) Immature Gran % 0.4 % % (0.0-1.1) Immature Gran # 0.03 10^3/uL 10^3/uL (0.00-0.10) Sodium 137 mEq/L mEq/L (135-145) Potassium 3.3 mEq/L L mEq/L (3.5-5.2) Chloride 107 mEq/L mEq/L (97-110) Carbon Dioxide 25 mEq/l mEq/l (22-31) Anion Gap 5 mEq/L L mEq/L (6-14) BUN 5 mg/dL L mg/dL (7-23) Creatinine 0.5 mg/dL L mg/dL (0.6-1.0) Estimated GFR > 60 Glucose 189 mg/dL H mg/dL (70-100) Calcium 8.8 mg/dL mg/dL (8.5-10.4) Medications Given: Discontinued Medications Sodium Chloride (Ns) 1,000 mls @ 0 mls/hr IV EDNOW ONE; Wide Open PRN Reason: Protocol Stop: 06/20/18 08:07 Last Admin: 06/20/18 08:11 Dose: 1,000 mls Sodium Chloride (Ns) 1,000 mls @ 0 mls/hr IV ONCE ONE PRN Reason: Wide Open Stop: 06/20/18 08:25 Last Admin: 06/20/18 08:29 Dose: Not Given Departure - Departure Disposition: Home, Routine, Self-Care Clinical Impression: URI (upper respiratory infection), Weakness, Dehydration Condition: Good Instructions: Dehydration (ED), Upper Respiratory Infection (ED) Additional Instructions: Drink more fluids. Followup at primary care clinic as referred. Referrals: [facility],. [Clinic] - As per Instructions
[2018-06-20] MEDS ORDERED: NS 1,000 ML IV ONE ×2 (08:06→08:24)
[2018-06-20 08:25] LABS: PLATELET COUNT 416 10^3/uL (150-400)
--- NOTE | 2018-06-20 09:05 | CPEKG ---
Test Reason : OPEN Blood Pressure : / mmHG Vent. Rate : 105 BPM Atrial Rate : 105 BPM P-R Int : 127 ms QRS Dur : 081 ms QT Int : 334 ms P-R-T Axes : 000 041 054 degrees QTc Int : 442 ms Sinus tachycardia Confirmed by Allen Farrell ([id number]) on 06/20/2018 9:04:30 AM Referred By: Confirmed By:Allen Farrell
[2018-06-20 09:20] VITALS: BP 122/69
--- NOTE | 2018-06-20 18:41 | ASMTCMCOM ---
CM Note CM Note Notes: Pt presented to the ED via EMS this morning for weakness. This is the pt's 5th ED visit in the past week. Please see previous CM Reports, CM and Ethics Notes, and 06/09/18 CM DC Summary for additional background and various efforts to provide resources and support in order for patient to followup outpatient Pt was seen in the ED yesterday and provided a Medicaid cab to [facility] w/instructions to fully complete the intake process at [facility] with a [employer]cher this morning. Pt instead insisted 911 be called and that she be transported to the ED. This CM called [facility] and spoke w/Umer in Case Management and discussed pt's case and habit of staying at [facility] but not following through /[facility] intake process, etc. Around 1230, CM provided a cab again for pt to go to [facility] and specifically ask to speak to Umre. This was relayed to the pt and she states she will do this. Regular cab voucher provided due to time constraint and wanting to ensure pt could get to [facility] in time to meet w/Umer. This CM spoke w/pt about the appropriate use of the ED & EMS services vs. outpatient followup and pt stated "the resource is there for the people and I have a right to use it." This CM reminded pt that the ED and EMS are resources available to people for Emergency conditions and concerns and at this point pt has been assessed to be appropriately referred to [facility], etc. This CM would have arranged for a cab for pt to go directly to [facility] but they are not open due to the holiday. Around 1430: Followed up & spoke w/Umer at [facility] and he states he has not seen the pt and is not aware of her coming into the [facility] center. Date Signed: 06/20/2018 06:40 PM Electronically Signed By:Madiha Ponce RN
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
--- NOTE | 2018-06-22 23:15 | ASMTTCLDSP ---
TLC Discharge Disposition Disposition: Answers: Discharge If Answers: Yes DISCHARGED: Patient/family given suicide hotline info & [employer] brochure? Disposition Notes: Notes: In consultation with ED Physician, Dr. Ignacio Cronin and TOOL GRINDER OPERATOR EXTERNAL, Sharon Ball it was concurred pt. does not currently met criteria for inpt admission since pt does not appear to be a risk of harm to self or others. Pt denies SI or HI. Pt does however appear in need of ongoing Social Service assistance in the community. Pt was discharged to [facility] and TLC made call to [facility] hotline worker Jg Duke to notify of pt.'s d/c from the ED. Discharge Concerns/Recommendations: Notes: Pt was discharged to [facility]. Date Signed: 06/22/2018 11:15 PM Electronically Signed By:Adrienne Red
== END 2018-06-20 09:18 | disposition home or self-care (01) ==
LOC: EDUNIT#
DX: J06.9 Acute upper respiratory infection, unspecified (principal); R53.1 Weakness; E86.9 Volume depletion, unspecified; E11.9 Type 2 diabetes mellitus without complications; I25.10 Atherosclerotic heart disease of native coronary artery without angina pectoris; Q78.4 Enchondromatosis; Z59.0 Homelessness; Z96.653 Presence of artificial knee joint, bilateral; Z96.643 Presence of artificial hip joint, bilateral

== ENCOUNTER 2018-06-22 16:43 | Emergency (ER) | payer OTHER, MEDICAID ==
--- NOTE | 2018-06-22 18:09 | EDPHY ---
Mental Health General Time Seen by Provider: 06/22/18 18:01 Narrative: HPI: Chief Complaint: Location: Quality: Duration: Signs and Symptoms: Timing: Severity: Context: Modifying Factors: Comment: ROS: A comprehensive 10 system review of systems is otherwise negative aside from elements mentioned in the history of present illness. MEDICAL/SURGICAL/SOCIAL HISTORY: Medical history: Generally healthy. Does not take any regular medications. Surgical history: Denies Social history: Family history noncontributory. CONSTITUTIONAL: awake and alert, no obvious distress HEENT: Atraumatic and normocephalic, PERRL, EOMI. Nares patent; no rhinorrhea; no nasal mucosal edema. Tympanic membranes clear. Oropharynx clear, no exudate and moist pink mucosa. Airway patent. No lymphadenopathy. No meningismus. Cardiovascular: Normal S1/S2, regular rate, regular rhythm, without murmur rub or gallop. PULMONARY/CHEST: Symmetrical and nontender. Clear to auscultation bilaterally. Good air movement. No accessory muscle usage. ABDOMEN: Soft, nondistended, nontender, no rebound, no guarding, no peritoneal signs, no masses or organomegaly. No CVAT. EXTREMITIES: 2/2 pulses, strength 5/5, no deformities, no clubbing, no cyanosis or edema. NEUROLOGICAL: no focal neuro deficits. GCS 15. SKIN: Warm and dry, no erythema. no rash. Good capillary refill. Smoking Status: Heavy smoker - Objective Vital Signs: Initial Vital Signs Temperature (C) 37.2 C 06/22/18 16:46 Heart Rate 105 H 06/22/18 16:46 Respiratory Rate 16 06/22/18 16:46 Blood Pressure 96/66 L 06/22/18 16:46 O2 Sat (%) 91 L 06/22/18 16:46 O2 Delivery Mode Room Air Allergies/Adverse Reactions: No Known Allergies Allergy (Verified 06/19/18 09:20) Home Medications: Medication Instructions Recorded NK [No Known Home Meds] 06/14/18 Laboratory Results: Laboratory Results 06/22/18 18:30 06/22/18 18:30 06/22/18 06/22/18 06/22/18 18:42 18:30 18:30 WBC 7.43 10^3/uL 10^3/uL (3.80-9.50) RBC 4.54 10^6/uL 10^6/uL (4.18-5.33) Hgb 10.6 g/dL L g/dL (12.6-16.3) Hct 34.8 % L % (38.0-47.0) MCV 76.7 fL L fL (81.5-99.8) MCH 23.3 pg L pg (27.9-34.1) MCHC 30.5 g/dL L g/dL (32.4-36.7) RDW 19.0 % H % (11.5-15.2) Plt Count 391 10^3/uL 10^3/uL (150-400) MPV 9.2 fL fL (8.7-11.7) Neut % (Auto) 50.2 % % (39.3-74.2) Lymph % (Auto) 34.9 % % (15.0-45.0) [place] % (Auto) 10.2 % % (4.5-13.0) Eos % (Auto) 4.2 % % (0.6-7.6) Baso % (Auto) 0.4 % % (0.3-1.7) Nucleat RBC Rel Count 0.0 % % (0.0-0.2) Absolute Neuts (auto) 3.73 10^3/uL 10^3/uL (1.70-6.50) Absolute Lymphs (auto) 2.59 10^3/uL 10^3/uL (1.00-3.00) Absolute Monos (auto) 0.76 10^3/uL 10^3/uL (0.30-0.80) Absolute Eos (auto) 0.31 10^3/uL 10^3/uL (0.03-0.40) Absolute Basos (auto) 0.03 10^3/uL 10^3/uL (0.02-0.10) Absolute Nucleated RBC 0.00 10^3/uL 10^3/uL (0-0.01) Immature Gran % 0.1 % % (0.0-1.1) Immature Gran # 0.01 10^3/uL 10^3/uL (0.00-0.10) Sodium 138 mEq/L mEq/L (135-145) Potassium 3.4 mEq/L L mEq/L (3.5-5.2) Chloride 109 mEq/L mEq/L (97-110) Carbon Dioxide 26 mEq/l mEq/l (22-31) Anion Gap 3 mEq/L L mEq/L (6-14) BUN 7 mg/dL mg/dL (7-23) Creatinine 0.5 mg/dL L mg/dL (0.6-1.0) Estimated GFR > 60 Glucose 99 mg/dL mg/dL (70-100) Calcium 8.1 mg/dL L mg/dL (8.5-10.4) Urine Opiates Screen NEGATIVE (NEGATIVE) Urine Barbiturates NEGATIVE (NEGATIVE) Ur Phencyclidine Scrn NEGATIVE (NEGATIVE) Ur Amphetamine Screen NEGATIVE (NEGATIVE) U Benzodiazepines Scrn NEGATIVE (NEGATIVE) Urine Cocaine Screen NEGATIVE (NEGATIVE) U Marijuana (THC) Screen NEGATIVE (NEGATIVE) Departure - Departure Disposition: Home, Routine, Self-Care Referrals: [facility],. [Clinic] - As per Instructions
[2018-06-22 18:43] LABS: PLATELET COUNT 391 10^3/uL (150-400)
--- NOTE | 2018-06-22 19:24 | EDPHY ---
H & P Stated Complaint: Sent by [facility] for evaluation. Time Seen by Provider: 06/22/18 18:01 HPI/ROS: HPI: This is a 58-year-old female who presents with Chief Complaint: Sent by Mental Health for evaluation Location: psych Quality: Mental health evaluation Duration: Today Signs and Symptoms: no auditory hallucinations, no visual hallucinations, no suicidal ideation with a plan, no homicidal ideation, no paranoia Timing: Acute on chronic Severity: [id number] Context: Patient has a history of stroke, mild dementia, mi, bone disease, homeless presents from [facility] for request of evaluation in the emergency room. Patient went to the crisis Center today complaining that she did not have a place to stay. She can answer all of my questions denies suicidal ideation, homicidal ideation, hallucinations. Chart review shows that she has had an extensive stay in the hospital. She was also seen here in this emergency room yesterday, 06/20/2018. Patient has been given additional background various ever to provide resources and support in order for patient to follow up outpatient but continues to not do so. Patient was arranged for [facility] and her coming into the [facility] center. Modifying Factors: Comment: ROS: A comprehensive 10 system review of systems is otherwise negative aside from elements mentioned in the history of present illness. MEDICAL/SURGICAL/SOCIAL HISTORY: Medical history: Ollier condition (bone disease), stroke, [place], type 2 diabetes mellitus, personality disorder. Surgical history: Bilateral hip and knee replacements Social history: Homeless. Heavy smoker. Family history noncontributory. CONSTITUTIONAL: Cooperative, calm elderly white female, awake and alert, no obvious distress HEENT: Atraumatic and normocephalic, PERRL, EOMI. Nares patent; no rhinorrhea; no nasal mucosal edema. Tympanic membranes clear. Oropharynx clear, missing dentition, no exudate and moist pink mucosa. Airway patent. No lymphadenopathy. No meningismus. Cardiovascular: Normal S1/S2, mild tachycardia, regular rhythm, without murmur rub or gallop. PULMONARY/CHEST: Symmetrical and nontender. Clear to auscultation bilaterally. Good air movement. No accessory muscle usage. ABDOMEN: Soft, nondistended, nontender, no rebound, no guarding, no peritoneal signs, no masses or organomegaly. No CVAT. EXTREMITIES: 2/2 pulses, strength 5/5, no deformities, no clubbing, no cyanosis or edema. NEUROLOGICAL: no focal neuro deficits. GCS 15. Alert and oriented x4. SKIN: Warm and dry, no erythema. no rash. Good capillary refill. PSYCH: Good eye contact, no flight of ideas, organized thought process, fair insight and judgment, no auditory hallucinations, no visual hallucinations, no suicidal ideation with a plan, no homicidal ideation, no paranoia Source: Patient, RN/MD, Old records Exam Limitations: No limitations - Personal History Current Tetanus Diphtheria and Acellular Pertussis (TDAP): Unsure - Medical/Surgical History Hx Asthma: No Hx Chronic Respiratory Disease: No Hx Diabetes: No Hx Cardiac Disease: Yes Hx Renal Disease: No Hx Cirrhosis: No Hx Alcoholism: No Hx HIV/AIDS: No Hx Splenectomy or Spleen Trauma: No Other PMH: olliers condition (bone disease), stroke, [place]. - Social History Smoking Status: Heavy smoker Constitutional: Initial Vital Signs Temperature (C) 37.2 C 06/22/18 16:46 Heart Rate 105 H 06/22/18 16:46 Respiratory Rate 16 06/22/18 16:46 Blood Pressure 96/66 L 06/22/18 16:46 O2 Sat (%) 91 L 06/22/18 16:46 O2 Delivery Mode Room Air Allergies/Adverse Reactions: No Known Allergies Allergy (Verified 06/19/18 09:20) Home Medications: Medication Instructions Recorded NK [No Known Home Meds] 06/14/18 Medical Decision Making ED Course/Re-evaluation: Vital signs reviewed and patient shows mild tachycardia. Labs and UDS ordered. Labs reviewed and show slightly low calcium level. Ionized calcium level ordered I do not believe that patient meets M1 Hold or detainer criteria. She is alert and oriented x4, following commands and has relatively fair insight and judgment. Mental health tin recovery worker does not recommend inpatient psychiatric admission. Patient will be [facility]. Patient asking for a meal and drinking fluids with resolution of tachycardia. This patient was seen under the supervision of my secondary supervising physician. I evaluated care for this patient independently. Discussed this patient with Dr. Cronin who did not see the patient. Differential Diagnosis: Differential diagnosis includes but is not limited to major depression, anxiety disorder, schizophrenia, bipolar disorder, intoxicant use, suicidal ideation, psychosis, ethan. - Data Points Laboratory Results: Laboratory Results 06/22/18 18:30 06/22/18 18:30 06/22/18 06/22/18 06/22/18 18:42 18:30 18:30 WBC 7.43 10^3/uL 10^3/uL (3.80-9.50) RBC 4.54 10^6/uL 10^6/uL (4.18-5.33) Hgb 10.6 g/dL L g/dL (12.6-16.3) Hct 34.8 % L % (38.0-47.0) MCV 76.7 fL L fL (81.5-99.8) MCH 23.3 pg L pg (27.9-34.1) MCHC 30.5 g/dL L g/dL (32.4-36.7) RDW 19.0 % H % (11.5-15.2) Plt Count 391 10^3/uL 10^3/uL (150-400) MPV 9.2 fL fL (8.7-11.7) Neut % (Auto) 50.2 % % (39.3-74.2) Lymph % (Auto) 34.9 % % (15.0-45.0) [place] % (Auto) 10.2 % % (4.5-13.0) Eos % (Auto) 4.2 % % (0.6-7.6) Baso % (Auto) 0.4 % % (0.3-1.7) Nucleat RBC Rel Count 0.0 % % (0.0-0.2) Absolute Neuts (auto) 3.73 10^3/uL 10^3/uL (1.70-6.50) Absolute Lymphs (auto) 2.59 10^3/uL 10^3/uL (1.00-3.00) Absolute Monos (auto) 0.76 10^3/uL 10^3/uL (0.30-0.80) Absolute Eos (auto) 0.31 10^3/uL 10^3/uL (0.03-0.40) Absolute Basos (auto) 0.03 10^3/uL 10^3/uL (0.02-0.10) Absolute Nucleated RBC 0.00 10^3/uL 10^3/uL (0-0.01) Immature Gran % 0.1 % % (0.0-1.1) Immature Gran # 0.01 10^3/uL 10^3/uL (0.00-0.10) Sodium 138 mEq/L mEq/L (135-145) Potassium 3.4 mEq/L L mEq/L (3.5-5.2) Chloride 109 mEq/L mEq/L (97-110) Carbon Dioxide 26 mEq/l mEq/l (22-31) Anion Gap 3 mEq/L L mEq/L (6-14) BUN 7 mg/dL mg/dL (7-23) Creatinine 0.5 mg/dL L mg/dL (0.6-1.0) Estimated GFR > 60 Glucose 99 mg/dL mg/dL (70-100) Calcium 8.1 mg/dL L mg/dL (8.5-10.4) Urine Opiates Screen NEGATIVE (NEGATIVE) Urine Barbiturates NEGATIVE (NEGATIVE) Ur Phencyclidine Scrn NEGATIVE (NEGATIVE) Ur Amphetamine Screen NEGATIVE (NEGATIVE) U Benzodiazepines Scrn NEGATIVE (NEGATIVE) Urine Cocaine Screen NEGATIVE (NEGATIVE) U Marijuana (THC) Screen NEGATIVE (NEGATIVE) Departure - Departure Disposition: Home, Routine, Self-Care Clinical Impression: Homeless Condition: Good Instructions: Weakness (ED) Additional Instructions: Please follow-up at [facility] as needed. Referrals: [facility],. [Clinic] - As per Instructions
[2018-06-22 20:53] VITALS: BP 110/66
== END 2018-06-22 21:36 | disposition home or self-care (01) ==
DX: Z00.8 Encounter for other general examination (principal); E11.9 Type 2 diabetes mellitus without complications; Z86.73 Personal history of transient ischemic attack (TIA), and cerebral infarction without residual deficits; Z79.4 Long term (current) use of insulin; Z59.0 Homelessness
CPT/HCPCS: 80305